=== PATIENT | female | born 1955 | race Caucasian/White ===

== ENCOUNTER → 2020-05-08 | Outpatient (CLI) | payer MEDICARE, OTHER ==
[~2020-05-08] MED LIST: ALUM-MAG HYDROX30 ML PO; AMOX250 PO; ANTIBIOTIC OINT28 GM TOP; APHEN325 M2 PO; ASPI81CH PO; ATOR20 PO; ATORVASTATIN CA20 MG PO; AZIT500 PO; BACL10 PO; BACLOFEN10 M4 PO; BISA10S PR; CEPH500 PO; Cetirizine HCl10 MG PO; DICLOFENAC SOD100 G1 TOP; DOCUZEN 8.6-501 EACH PO; DULCOLAX400 MG/5 M PO; FERSU300 PO; FLUT1DIS2 INH; FLUTICASONE-SA1 EA10 INH; HALOPERIDOL PO; INVEGA SUS234 MG/1.1 IM; LITH300C PO; LITH300ER PO; LITHIUM CARBON PO; LOPE2C PO; Lithium Carbon150 MG PO; MAGNESIUM OXID400 M1 PO; MAGNESIUM OXID500 MG PO; METF500 PO; METFORMIN HCL500 M2 PO; METO25 PO; MIRALAX17 GM PO; MIRT15 PO; MIRT15ST PO; ONDA4ODT SL; PALI3TAB PO; PALIPERIDONE ER3 MG PO; POTCHL20ER PO; PRAZ2 PO; PROP10 PO; Potassium Chlo20 ME1 PO; SULINDAC150 M1 PO; TRIA15CR3 TOP; VITAMIN D31000 UNI1 PO; Ventolin/Prove6.7 GM INH; ZOLP5 PO; ZYRTEC10 M1 PO; eucerin cream TOP
[2020-05-08 13:52] LABS: BASOPHILS ABSOLUTE AUTO 0.04 K/mm3 (0.00-0.23); BASOPHILS PERCENT AUTO 0 % (0-2); EOSINOPHILS PERCENT AUTO 3 % (0-6); Hemoglobin 11.4 g/dL (11.5-16.0); IMMATURE GRAN ABSOLUTE AUTO 0.04 K/mm3 (0.00-0.10); IMMATURE GRAN PERCENT AUTO 0 % (0-1); LYMPHOCYTES ABSOLUTE AUTO 1.52 K/mm3 (0.84-5.20); LYMPHOCYTES PERCENT AUTO 15 % (21-46); MONOCYTES PERCENT AUTO 5 % (4-13); Mean Corpuscular HGB 27.9 pg (26.0-34.0); Mean Corpuscular Volume 93 fL (80-100); Mean Platelet Volume 10.6 fL (9.1-12.4); NEUTROPHILS ABSOLUTE AUTO 7.48 K/mm3 (1.96-9.15); NEUTROPHILS PERCENT AUTO 76 % (41-73); Platelet Count 199 K/mm3 (150-400); RDW Coefficient Variation 15.2 % (11.7-14.2); RDW Standard Deviation 51.8 fL (35.1-46.3); Red Blood Cell Count 4.08 M/mm3 (3.80-5.20); White Blood Cell Count 9.88 K/mm3 (4.00-11.30)
[2020-05-08 14:40] LABS: Lithium 0.46 mmol/L (0.60-1.20)
[2020-05-08 16:03] LABS: Alanine Aminotransfer (ALT/SGP 24 U/L (12-78); Albumin, Blood 3.4 g/dL (3.4-5.0); Albumin/Globulin Ratio 0.9 (0.8-1.8); Alk Phos 109 U/L (50-136); Anion Gap 1 mmol/L (6-16); Aspartate Aminotrans (AST/SGOT 9 U/L (12-37); Bilirubin, Total 0.4 mg/dL (0.1-1.0); Blood Urea Nitrogen 14 mg/dL (8-24); Bun/Creatinine Ratio 25.3 (12.0-20.0); CO2, Blood 37 mmol/L (21-32); Chloride, Blood 101 mmol/L (98-108); Creatinine, Blood 0.55 mg/dL (0.40-1.00); Globulin, Blood 3.6 g/dL (2.2-4.0); Glomerular Filtration Rate >60 (60-); Glucose, Blood 119 mg/dL (70-99); Potassium, Blood 3.9 mmol/L (3.5-5.5); Sodium, Blood 139 mmol/L (136-145)
== END | disposition home or self-care (01) ==
LOC: LAB 08:45 → LAB SHORT 08:45
PROVIDERS: Psychiatry & Neurology Psychiatry
DX: Z51.81 Encounter for therapeutic drug level monitoring (principal); Z79.899 Other long term (current) drug therapy
CPT/HCPCS: 80053; 80178; 84443; 85025

== ENCOUNTER → 2020-05-15 | Outpatient (CLI) | payer MEDICARE, OTHER ==
[2020-05-15 19:53] LABS: Appearance, Urine Clear (Clear); Bilirubin, Urine Neg (Neg); Blood, Urine Neg (Neg); Color, Urine Yellow (P-Yellow); Glucose Qualitative, Urine Neg (Neg); Ketones, Urine Neg (Neg); Leukocyte Esterase, Urine Neg (Neg); Nitrite, Urine Neg (Neg); Protein, Urine Neg (Neg); Specific Gravity, Urine 1.005 (1.003-1.022); Urobilinogen, Urine NORM (Normal)
== END | disposition home or self-care (01) ==
LOC: LAB 19:01 → LAB SHORT 19:01
PROVIDERS: Physician Assistant
DX: E11.65 Type 2 diabetes mellitus with hyperglycemia (principal)
CPT/HCPCS: 81003

== ENCOUNTER → 2020-05-17 | Outpatient (CLI) | payer MEDICARE, OTHER ==
[2020-05-17 20:45] LABS: Microalb/Creat Ratio UR, Rand Unable to Calculate mg/g (0.000-30.000); Microalbumin, Random Urine <5.000 mg/L (0.000-20.000)
== END | disposition home or self-care (01) ==
LOC: LAB SHORT 19:01 → LAB 19:01 → LAB FUT 05-15 08:40
PROVIDERS: Physician Assistant
DX: E11.65 Type 2 diabetes mellitus with hyperglycemia (principal)
CPT/HCPCS: 82043; 82570

== ENCOUNTER → 2020-05-18 | Outpatient (CLI) | payer MEDICARE, OTHER ==
[2020-05-18 13:57] LABS: BASOPHILS ABSOLUTE AUTO 0.05 K/mm3 (0.00-0.23); BASOPHILS PERCENT AUTO 1 % (0-2); EOSINOPHILS ABSOLUTE AUTO 0.26 K/mm3 (0.00-0.68); EOSINOPHILS PERCENT AUTO 3 % (0-6); Hematocrit 37.7 % (33.0-51.0); Hemoglobin 11.3 g/dL (11.5-16.0); IMMATURE GRAN ABSOLUTE AUTO 0.05 K/mm3 (0.00-0.10); IMMATURE GRAN PERCENT AUTO 1 % (0-1); LYMPHOCYTES ABSOLUTE AUTO 1.79 K/mm3 (0.84-5.20); LYMPHOCYTES PERCENT AUTO 17 % (21-46); MONOCYTES ABSOLUTE AUTO 0.45 K/mm3 (0.16-1.47); MONOCYTES PERCENT AUTO 4 % (4-13); Mean Corpuscular HGB 27.7 pg (26.0-34.0); Mean Corpuscular Volume 92 fL (80-100); Mean Platelet Volume 10.5 fL (9.1-12.4); NEUTROPHILS ABSOLUTE AUTO 7.79 K/mm3 (1.96-9.15); NEUTROPHILS PERCENT AUTO 75 % (41-73); Platelet Count 223 K/mm3 (150-400); RDW Coefficient Variation 14.8 % (11.7-14.2); RDW Standard Deviation 50.4 fL (35.1-46.3); Red Blood Cell Count 4.08 M/mm3 (3.80-5.20); White Blood Cell Count 10.39 K/mm3 (4.00-11.30)
[2020-05-18 14:16] LABS: Alanine Aminotransfer (ALT/SGP 27 U/L (12-78); Albumin, Blood 3.4 g/dL (3.4-5.0); Albumin/Globulin Ratio 0.9 (0.8-1.8); Alk Phos 109 U/L (50-136); Anion Gap 0 mmol/L (6-16); Aspartate Aminotrans (AST/SGOT 14 U/L (12-37); Bilirubin, Total 0.3 mg/dL (0.1-1.0); Blood Urea Nitrogen 10 mg/dL (8-24); Bun/Creatinine Ratio 18.9 (12.0-20.0); CHOL/HDL RATIO 4.3; CO2, Blood 37 mmol/L (21-32); Calcium, Blood 9.1 mg/dL (8.5-10.1); Chloride, Blood 102 mmol/L (98-108); Cholesterol 166 mg/dL (50-200); Creatinine, Blood 0.53 mg/dL (0.40-1.00); Ferritin, Serum 128 ng/mL (8-252); Globulin, Blood 3.6 g/dL (2.2-4.0); Glomerular Filtration Rate >60 (60-); Glucose, Blood 98 mg/dL (70-99); HDL Cholesterol 39 mg/dL (>39); Iron Serum 58 ug/dL (50-170); LDL/HDL RATIO 2.7; Low Density Lipoprotein Chol 107 mg/dL (0-110); Percent Saturation 19.1 % (15.0-50.0); Potassium, Blood 4.5 mmol/L (3.5-5.5); Sodium, Blood 139 mmol/L (136-145); Total Iron Binding Capacity 303 ug/dL (250-450); Triglycerides 100 mg/dL (30-160); Very Low Density Lipoprot Chol 20 mg/dL (6-32)
== END | disposition home or self-care (01) ==
LOC: LAB 12:53 → LAB SHORT 12:53
PROVIDERS: Physician Assistant
DX: D50.9 Iron deficiency anemia, unspecified (principal); I10 Essential (primary) hypertension; E11.65 Type 2 diabetes mellitus with hyperglycemia; E78.5 Hyperlipidemia, unspecified
CPT/HCPCS: 80053; 80061; 82728; 83036; 83540; 83550; 85025

== ENCOUNTER → 2020-05-29 | Outpatient (CLI) | payer MEDICARE, OTHER ==
[2020-05-30 19:30] LABS: Source, Urine Clean Catch
[2020-05-30 20:00] LABS: Appearance, Urine Clear (Clear); Bilirubin, Urine Neg (Neg); Blood, Urine Neg (Neg); Color, Urine Yellow (P-Yellow); Glucose Qualitative, Urine Neg (Neg); Ketones, Urine Neg (Neg); Leukocyte Esterase, Urine Neg (Neg); Nitrite, Urine Neg (Neg); Protein, Urine Neg (Neg); Urobilinogen, Urine NORM (Normal)
== END | disposition home or self-care (01) ==
LOC: LAB SHORT 13:00 → PLD 13:00
PROVIDERS: Physician Assistant
DX: N39.0 Urinary tract infection, site not specified (principal)
CPT/HCPCS: 81003

== ENCOUNTER 2020-06-21 12:44 | Inpatient (IN) | payer MEDICARE, OTHER ==
[~2020-06-21] VITALS: Ht 152.4 cm; Wt 120.0 kg
[2020-06-21 13:33] LABS: BASOPHILS ABSOLUTE AUTO 0.05 K/mm3 (0.00-0.23); BASOPHILS PERCENT AUTO 0 % (0-2); EOSINOPHILS PERCENT AUTO 0 % (0-6); Hematocrit 42.5 % (33.0-51.0); Hemoglobin 12.7 g/dL (11.5-16.0); IMMATURE GRAN ABSOLUTE AUTO 0.16 K/mm3 (0.00-0.10); IMMATURE GRAN PERCENT AUTO 1 % (0-1); LYMPHOCYTES ABSOLUTE AUTO 1.39 K/mm3 (0.84-5.20); LYMPHOCYTES PERCENT AUTO 9 % (21-46); MONOCYTES ABSOLUTE AUTO 0.71 K/mm3 (0.16-1.47); MONOCYTES PERCENT AUTO 5 % (4-13); Mean Corpuscular HGB 29.3 pg (26.0-34.0); Mean Corpuscular HGB Conc 29.9 g/dL (31.5-36.5); Mean Corpuscular Volume 98 fL (80-100); Mean Platelet Volume 10.3 fL (9.1-12.4); NEUTROPHILS ABSOLUTE AUTO 13.36 K/mm3 (1.96-9.15); NEUTROPHILS PERCENT AUTO 85 % (41-73); Platelet Count 193 K/mm3 (150-400); RDW Coefficient Variation 14.6 % (11.7-14.2); RDW Standard Deviation 52.2 fL (35.1-46.3); Red Blood Cell Count 4.34 M/mm3 (3.80-5.20); White Blood Cell Count 15.67 K/mm3 (4.00-11.30)
[2020-06-21 13:53] LABS: Albumin, Blood 3.5 g/dL (3.4-5.0); Albumin/Globulin Ratio 0.9 (0.8-1.8); Bilirubin, Total 0.4 mg/dL (0.1-1.0); Bun/Creatinine Ratio 16.2 (12.0-20.0); Calcium, Blood 8.7 mg/dL (8.5-10.1); Creatinine, Blood 1.6 mg/dL (0.40-1.00); Globulin, Blood 3.7 g/dL (2.2-4.0); Potassium, Blood 5.3 mmol/L (3.5-5.5); Total Protein, Blood 7.2 g/dL (6.4-8.2)
[2020-06-21 14:01] LABS: Troponin I 3.42 ng/mL (0.000-0.040)
[2020-06-21] MEDS ORDERED: ATORVASTATIN CA20 MG PO (14:42)
[2020-06-21] MEDS ORDERED: HALOPERIDOL PO (14:44)
[2020-06-21] MEDS ORDERED: DICLOFENAC SOD100 G1 TOP (14:45)
[2020-06-21] MEDS ORDERED: PALIPERIDONE ER3 MG PO (14:46)
[2020-06-21] MEDS ORDERED: MIRT15 PO (14:46)
[2020-06-21] MEDS ORDERED: BACLOFEN10 M4 PO (14:47)
[2020-06-21] MEDS ORDERED: Cetirizine HCl10 MG PO (14:47)
[2020-06-21] MEDS ORDERED: Lithium Carbon150 MG PO (14:48)
[2020-06-21] MEDS ORDERED: LITHIUM CARBON PO (14:48)
[2020-06-21] MEDS ORDERED: PRAZ2 PO (14:49)
[2020-06-21] MEDS ORDERED: METFORMIN HCL500 M2 PO (14:49)
[2020-06-21] MEDS ORDERED: PROP10 PO (14:50)
[2020-06-21] MEDS ORDERED: Potassium Chlo20 ME1 PO (14:50)
[2020-06-21] MEDS ORDERED: SULINDAC150 M1 PO (14:51)
[2020-06-21] MEDS ORDERED: ZOLP5 PO (14:52)
[2020-06-21] MEDS ORDERED: APHEN325 M2 PO (14:53)
[2020-06-21] MEDS ORDERED: FLUTICASONE-SA1 EA10 INH (14:54)
[2020-06-21] MEDS ORDERED: INVEGA SUS234 MG/1.1 IM (14:55)
[2020-06-21] MEDS ORDERED: Ventolin/Prove6.7 GM INH (14:56)
[2020-06-21] MEDS ORDERED: VITAMIN D31000 UNI1 PO (14:58)
[2020-06-21] MEDS ORDERED: FERSU300 PO (14:59)
[2020-06-21] MEDS ORDERED: MIRALAX17 GM PO (15:00)
[2020-06-21] MEDS ORDERED: MAGNESIUM OXID500 MG PO (15:02)
[2020-06-21] MEDS ORDERED: DOCUZEN 8.6-501 EACH PO (15:02)
[2020-06-21] MEDS ORDERED: TRIA15CR3 TOP (15:03)
[2020-06-21] MEDS ORDERED: LOPE2C PO (15:04)
[2020-06-21] MEDS ORDERED: ALUM-MAG HYDROX30 ML PO (15:04)
[2020-06-21] MEDS ORDERED: BISA10S PR (15:05)
[2020-06-21] MEDS ORDERED: eucerin cream TOP (15:06)
[2020-06-21] MEDS ORDERED: DULCOLAX400 MG/5 M PO (15:07)
[2020-06-21] MEDS ORDERED: ONDA4ODT SL (15:08)
[2020-06-21] MEDS ORDERED: ANTIBIOTIC OINT28 GM TOP (15:09)
[2020-06-21 15:19] LABS: Lithium 1.64 mmol/L (0.60-1.20)
[2020-06-21 16:45] LABS: International Normalized Ratio 1.02; Prothrombin Time Results 10.9 Sec (9.7-11.5)
--- NOTE | 2020-06-21 19:30 | NUR ---
Pt arrived to PCU approx 1844. IV right antecubital space accidentally pulled in the transfer from [facility] to bed. Pt is lethargic, speech is mumbling and difficult to understand, and at times does not make sense. She does state that she came to the hospital because of "a heart attack" which she states was brought on by her smoking a cigarette today. States pain in her back, but when asked which part of her back she points to her right shoulder. Requiring 4 l/min O2 n.c. delivery to keep spo2 greater than 89%. Appears to have some sleep apnea. Incontinent of urine just after arrival, awakened for pericare and attends change. Able to assist somewhat with the turning back and forth in bed, but appears dyspneic with activity. Also having a hard time remembering to keep her oxygen on. Heparin gtt verified with orders with Geovanna Marquez at bedside report.
[2020-06-21 20:29] LABS: PO2 Arterial 80.7 mmHg (80-100); pH Blood Arterial 7.23 (7.35-7.45)
--- NOTE | 2020-06-21 20:59 | NUR ---
CALLED JOY ARCHITECTURAL MODELER REGARDING PT CRITICAL LABS: PH 7.32 AND PCO2 97.0. ARCHITECTURAL MODELER ORDERED FOR BIPAP.
[2020-06-21 21:12] LABS: Influenza A, PCR NEGATIVE (NEGATIVE); Influenza B, PCR NEGATIVE (NEGATIVE); Resp Syncytial Virus, PCR NEGATIVE (NEGATIVE); SARS-Cov-2 (COVID-19) PCR, MMC NEGATIVE (NEGATIVE)
[2020-06-21 21:44] LABS: Creatine Kinase MB 23.7 ng/mL (0.0-3.6); Creatine Kinase MB Index 1.7 (0.0-4.0)
--- NOTE | 2020-06-21 22:21 | NUR ---
CRITICAL VALUE OF TRIPONIN 6.46 FROM LAB. INFORMED CHARGE NURSE. HEPARIN RUNNING, CARDIOLOGY CONSULT ORDER IN PLACE. CALLED IN CONSULT AND TALKED TO JAMISON FOR AM CONSULT WITH MD CHRISTIANSON
[2020-06-22 05:27] LABS: Hematocrit 36.7 % (33.0-51.0); Hemoglobin 11.1 g/dL (11.5-16.0); Mean Corpuscular HGB 29.8 pg (26.0-34.0); Mean Corpuscular HGB Conc 30.2 g/dL (31.5-36.5); Mean Corpuscular Volume 98 fL (80-100); Mean Platelet Volume 10.5 fL (9.1-12.4); Platelet Count 168 K/mm3 (150-400); RDW Coefficient Variation 14.7 % (11.7-14.2); RDW Standard Deviation 52.9 fL (35.1-46.3); Red Blood Cell Count 3.73 M/mm3 (3.80-5.20)
--- NOTE | 2020-06-22 05:59 | NUR ---
SHIFT SUMMARY PT CONFUSED. AT BEGINING OF SHIFT PT WAS CONFUSED; SHE WAS RECEPTIVE TO CARE AND ABLE TO FOLLOW SOME COMMANDS. AFTER PT WAS PUT ON BIPAP SHE BECAME AGITATED WAS, YELLING, TALKING TO SELF AND THREATING TO WHOM SHE WAS TALKING TO (NOT STAFF). PT'S PH WAS 7.23 AND PCO2 WAS 97.0, JOY CARDING DOUBLER WAS CALLED. TROPONIN WAS ELEVATED TO 6.46 AND CONSULT TO CARDIOLOGY WAS CALLED IN. HEPARIN IS INFUSING; ON BIPAP OF 35% FIO2 WITH >92% SATS. NORMAL SINUS RHYTHM. PT IS NPO.
[2020-06-22 06:06] LABS: Anion Gap 2 mmol/L (6-16); Blood Urea Nitrogen 28 mg/dL (8-24); Bun/Creatinine Ratio 27.2 (12.0-20.0); CHOL/HDL RATIO 2.7; CO2, Blood 41 mmol/L (21-32); CPK Creatine Kinase 889 U/L (26-193); Calcium, Blood 8.6 mg/dL (8.5-10.1); Chloride, Blood 99 mmol/L (98-108); Cholesterol 102 mg/dL (50-200); Creatine Kinase MB 14.9 ng/mL (0.0-3.6); Creatine Kinase MB Index 1.7 (0.0-4.0); Creatinine, Blood 1.03 mg/dL (0.40-1.00); Glomerular Filtration Rate 57 (60-); Glucose, Blood 95 mg/dL (70-99); HDL Cholesterol 38 mg/dL (>39); LDL/HDL RATIO 1.1; Low Density Lipoprotein Chol 40 mg/dL (0-110); Phosphorus, Blood 3.7 mg/dL (2.5-4.9); Potassium, Blood 4.3 mmol/L (3.5-5.5); Sodium, Blood 142 mmol/L (136-145); Triglycerides 119 mg/dL (30-160); Very Low Density Lipoprot Chol 23 mg/dL (6-32)
--- NOTE | 2020-06-22 06:36 | NUR ---
CRITICAL TROPONIN OF 5.620. DISCUSSED WITH ANGIE WEBB RN.
[2020-06-22 06:40] LABS: Lithium 0.44 mmol/L (0.60-1.20)
--- NOTE | 2020-06-22 07:18 | NUR ---
Pt is awake, responding to conversation but also talking to the TV. Occasionally shouting out that she needs to eat, needs a cigarette, and also shouting out "they are trying to rape me! Help!" when staff are taking her vital signs, doing an assessment, etc. Arguing with staff about whether or not she can smoke. She is now repeating,"thank you Zen" over and over again because she said it will make staff automatially give her a cigarette. Vital signs stable, pt has no c/o pain or difficulty breathing but requring 7 l/min of oxygen to keep spo2 greater than 90%. Sinus rhythm on the monitor.
--- NOTE | 2020-06-22 09:02 | NUR ---
Pt pulled out her IV, tele monitor, and her oxygen. Yelling out, irrational behaviour, and irritable and obscene language. Refusing to take her oral medications at first, then relented, but at each administration she would pour the water/ice either on the floor or over her own head. Pulled off the gauze and coban which was covering her dc'd iv site and bled all over the bed. Site was again dressed with gauze and ample coban to prevent a second removal. Repetitive and nonscensical verbalizations when left alone in the room. Appeared to be having conversations at the images on the TV also.
--- NOTE | 2020-06-22 09:09 | NUR ---
Call to Dr. Noland to notify her of pt's refusal to cooperate with care. Anticipating order for Zyprexa IM.
--- NOTE | 2020-06-22 09:27 | NUR ---
Pt refusing to have vital signs taken, including spo2. Refusing to wear her oxygen. Zyprexa administered as ordered. Pt is yelling out nonsensicially. Attempting to hit and grab staff when they are in proximity to her.
--- NOTE | 2020-06-22 09:57 | NUR ---
Pt allowed respiratory care to check spo2. 78% on room air. Pt allowed application of oxygen at 7 l/min via n.c.; spo2 improved only slightly to 81%. Pt is babbling nonsensically, still attempting to grab at staff and interfere with care.
--- NOTE | 2020-06-22 10:09 | NUR ---
Pt's spo2 not improving , remaining 77-81% on 11 l/min n.c. hi flow. Respiratory care here, states pt needs bipap, but with restraits she will need transfer to ICU. Called Dr. Noland to discuss situation. Pt will be transferring to ICU 11 shortly.
--- NOTE | 2020-06-22 11:16 | NUR ---
pt transferred to ICU 11; bedside report given to Cynthia Seo RN.
[2020-06-22 11:54] LABS: PCO2 Arterial 69.6 mmHg (35-45); PO2 Arterial 180 mmHg (80-100)
--- NOTE | 2020-06-22 14:15 | NUR ---
Assumed care of pt upon arrival to ICU 11 at 1053 from PCU. Bedside report received from Daily JOHNSON. Transferred from PCU bed to ICU bed using slider sheet and five staff. On arrival, pt agitated, yelling profanities. Flailing extremities in nonviolent manner. Restraints placed as pt has pulled vital lines. Pt arrived with no IV access in place as this was pulled in PCU. Therefore heparin not infusing. SR per monitor. BP stable. Lungs clear but diminished t/o. Pt on 10 LPM NC. SpO2 low 80s, but this was corrected when pt put nasal cannula in her mouth. Pt on BiPAP for approx 45 minutes. Taken off for trip to imaging. On arrival back to department, pt remained on NC and O2 has since been titrated down to 2 LPM. SpO2 94%. Pt incontinent of bladder. Morrison catheter placed for strict measurement of I&O. Pt's left arm had coban and gauze to AC. Difuse edema and ecchymosis to left arm. Blisters also present. Measured 40 cm cicumference to forarm, distal to AC. Photographs obtained. Arm tender when palpated or pt moves it. Per PCU nurses, pt had heparin infusing through IV in AC when it was pulled. Discussed with pharmacist, Timothy. Discussed with Dr Noland, plan to obtain CT of extremity. At this time, pt is pleasant and cooperative with care. Refused lunch tray, as she wants pizza and not her lunch tray. Pt agreeable to drinking an ensure.
[2020-06-22 14:24] LABS: Source, Urine Catheter
[2020-06-22 14:27] LABS: Appearance, Urine Clear (Clear); Bilirubin, Urine Neg (Neg); Blood, Urine Neg (Neg); Color, Urine Yellow (P-Yellow); Glucose Qualitative, Urine Neg (Neg); Ketones, Urine Neg (Neg); Leukocyte Esterase, Urine Neg (Neg); Nitrite, Urine Neg (Neg); Protein, Urine Neg (Neg); Urobilinogen, Urine NORM (Normal)
[2020-06-22 16:05] LABS: BASOPHILS ABSOLUTE AUTO 0.04 K/mm3 (0.00-0.23); BASOPHILS PERCENT AUTO 0 % (0-2); EOSINOPHILS ABSOLUTE AUTO 0.15 K/mm3 (0.00-0.68); EOSINOPHILS PERCENT AUTO 1 % (0-6); Hematocrit 36.2 % (33.0-51.0); IMMATURE GRAN ABSOLUTE AUTO 0.12 K/mm3 (0.00-0.10); IMMATURE GRAN PERCENT AUTO 1 % (0-1); LYMPHOCYTES PERCENT AUTO 17 % (21-46); MONOCYTES ABSOLUTE AUTO 0.69 K/mm3 (0.16-1.47); MONOCYTES PERCENT AUTO 6 % (4-13); Mean Corpuscular HGB 29.8 pg (26.0-34.0); Mean Corpuscular HGB Conc 30.4 g/dL (31.5-36.5); Mean Corpuscular Volume 98 fL (80-100); Mean Platelet Volume 10.9 fL (9.1-12.4); NEUTROPHILS ABSOLUTE AUTO 8.62 K/mm3 (1.96-9.15); NEUTROPHILS PERCENT AUTO 75 % (41-73); NRBC ABSOLUTE 0.02 K/mm3 (0.00-0.02); NRBC Auto 0.2 /100 WBC (0.0-0.2); Platelet Count 165 K/mm3 (150-400); RDW Coefficient Variation 14.8 % (11.7-14.2); RDW Standard Deviation 53.3 fL (35.1-46.3); Red Blood Cell Count 3.69 M/mm3 (3.80-5.20); White Blood Cell Count 11.52 K/mm3 (4.00-11.30)
--- NOTE | 2020-06-22 17:01 | NUR ---
Placed call to Dr Noland to notify of lab results. Discussed appearance of RUBENE and requested provider take a look at it. Provider states she will come by and look at it. Ecchymotic area marked. Forearm circumference measured, now 38 cm instead of 40 cm. This RN gave update to sister, Cara Collins ([phone]). Also updated Shoshana ([phone]) from [facility], who stated that Cara is the patient's guardian, if any consent needs to be obtained.
--- NOTE | 2020-06-22 17:34 | NUR ---
SUMMARY At this time, pt is A&O x 2. Answers questions. Follows commands. Vebalizes needs. Pleasant and cooperative with care. Pt still pulls at cords and lines even through restraints. Powerglide remains safely in place at this time. Pt on 2 LPM NC. SpO2 96%. Per RN at [facility], pt usually wears 3 LPM NC. Morrison catheter in place draining clear, yellow urine. SR per monitor. BP stable. Color, sensation, pulses, capillary refill equal BUE. LUE elevated to help with edema, Will continue to closely monitor until care handoff and bedside report with oncoming RN.
--- NOTE | 2020-06-22 22:00 | NUR ---
Care Assumed 1900 Pt is oriented to being in [place] but unable to state being at hospital or correct date. Has flight of idea, attempting to get out of bed to "smoke." Updated on location and why restraints are in place. Pt pulling at lines and easily becomes confused/agitated. VSS. NSR. On 5 L via NC, SPO2 > 90%. Temp olson in place, draining to gravity (99.7 temp). Pts left arm has diffuse edema, ecchymosis, and blisters present. Pt states pain with movement but when at rest denies pain. Powerglide to ADRIANA infusing heparin, see flow sheet. Pt asking for "chocolate milk" ensure provided.
--- NOTE | 2020-06-22 23:45 | NUR ---
Update Pt sleeping and easily awakens to verbal stimuli. On 5 L via NC, SPO2 > 90%. Left arm has edema, ecchymosis, and blisters continue to be present. Measured 40 cm circumference to forearm, distal to AC. Pt states pain is the same. Will continue to monitor.
--- NOTE | 2020-06-23 04:00 | NUR ---
Update - SWB removed @ 0000 SWB removed at 0000. Pt has been calm and cooperative. Able to sit up in bed and eat sandwich/pudding per pt request. No changes in patients left arm, see photo in chart. Pt sleeping after having snack. Will continue to monitor.
--- NOTE | 2020-06-23 05:39 | NUR ---
Shift Summary Pt resting t/o shift. Calm and cooperative. Awakens easily to verbal stimuli. Asked pt if she is aware of her location, states no and says she maybe in [place] and repeats "I do not want to go to the appointment." Pt oriented and falls asleep. Call light within reach. Pt remains on 5 L via NC, SPO2 > 90%. No changes in left arm, edema/ecchymosis and blisters continue to be present. Pt rates pain of 6/10, no worsening pain reported t/o shift. Heparin GTT 18 u/kg/hr, see flow sheet. VSS. NSR. Will report to oncoming shift.
--- NOTE | 2020-06-23 17:14 | NUR ---
SHIFT SUAMRY PT A&Ox2; CALM BUT RESISTANT TO CARE AT TIMES. PT QUESTIONS MEDICATION SEVERAL TIMES BEFORE TAKING SOME OF THE PRESCRIBED MEDICATIONS. PT REPORT BACK PAIN, REPOSITIONED FOR COMOFRT AND PRESSURE ULCER PREVENTION. PT PT DENIES SOB, THIS AM ON 5L O2 VIA NC, TITRATED TO 2L O2 VIA NC, SPO2 >90%, PT FREQUENTLY TAKES OFF NC TO WIPE NOSE DESATRUATION TO MID 80'S BUT RECOVERS QUICKLY. PT DENIES NAUSEA, DIZZINESS AND LIGHTHEADEDNESS. VSS. PT OPENING CUPS OF WATER AND SPILLING THEM OVER HER HEAD, THEN REQUEST A DRINK OF WATER. PT REFUSING TO ASSIST WITH REPOSITIONING IN BED, STATES THAT SHE IS TO WEAK. SWELLING TO LUE FROM INFILTRATION TO AC IV; BRUISING IS RECEEDING FROM MARKED LINES AND MEASUMENT THIS AM AT 38cm TO THIS EVENING OF 36.5cm. NO OTHER ACUTE CHANGES NOTED. WILL CONTINUE TO MONITOR UNITL REPORT GIVEN TO ONCOMING RN.
--- NOTE | 2020-06-24 03:16 | NUR ---
ASSUMED CARE AT 1900 PT LAYING IN BED AND IS ALERT/ORIENTED TO SELF/TOWN BUT NOT TIME OR PLACE; PT BECOMES DISTRACTED EASILY AND IT IS CHALLENGING TO FOLLOW THOUGHT PROCESS AT TIMES; PT IS CALM AND COOPERATIVE WITH CARE. SPO2 >90% ON 2L NC. AFIBRILE. HR 60'S. BP STABLE. DORMAN PATENT AND DRAINING TO GRAVITY. INFILTRATION TO LUE SHOWS REDNESS INSIDE THE DRAWN OUTLINE. HEPARIN INFUSING AT 20 UNITS/KG/HR VIA POWERGLIDE TO ADRIANA. SEE SHIFT ASSESSMENT FOR FULL ASSESSMENT.
[2020-06-24 03:34] LABS: BASOPHILS ABSOLUTE AUTO 0.04 K/mm3 (0.00-0.23); BASOPHILS PERCENT AUTO 0 % (0-2); EOSINOPHILS ABSOLUTE AUTO 0.22 K/mm3 (0.00-0.68); EOSINOPHILS PERCENT AUTO 2 % (0-6); Hematocrit 34.5 % (33.0-51.0); Hemoglobin 10.4 g/dL (11.5-16.0); IMMATURE GRAN ABSOLUTE AUTO 0.07 K/mm3 (0.00-0.10); IMMATURE GRAN PERCENT AUTO 1 % (0-1); LYMPHOCYTES ABSOLUTE AUTO 2.22 K/mm3 (0.84-5.20); LYMPHOCYTES PERCENT AUTO 20 % (21-46); MONOCYTES PERCENT AUTO 6 % (4-13); Mean Corpuscular HGB 29.5 pg (26.0-34.0); Mean Corpuscular HGB Conc 30.1 g/dL (31.5-36.5); Mean Corpuscular Volume 98 fL (80-100); Mean Platelet Volume 10.7 fL (9.1-12.4); NEUTROPHILS ABSOLUTE AUTO 7.63 K/mm3 (1.96-9.15); NEUTROPHILS PERCENT AUTO 70 % (41-73); Platelet Count 174 K/mm3 (150-400); RDW Coefficient Variation 14.8 % (11.7-14.2); RDW Standard Deviation 51.7 fL (35.1-46.3); Red Blood Cell Count 3.53 M/mm3 (3.80-5.20); White Blood Cell Count 10.88 K/mm3 (4.00-11.30)
[2020-06-24 03:52] LABS: Albumin, Blood 2.9 g/dL (3.4-5.0); Anion Gap 2 mmol/L (6-16); Blood Urea Nitrogen 17 mg/dL (8-24); CO2, Blood 43 mmol/L (21-32); Calcium, Blood 8.7 mg/dL (8.5-10.1); Chloride, Blood 98 mmol/L (98-108); Creatinine, Blood 0.65 mg/dL (0.40-1.00); Glomerular Filtration Rate >60 (60-); Glucose, Blood 111 mg/dL (70-99); Magnesium, Blood 2.1 mg/dL (1.6-2.4); Sodium, Blood 143 mmol/L (136-145)
--- NOTE | 2020-06-24 06:28 | NUR ---
END OF SHIFT SUMMARY PT SLEPT FOR SEVERAL HOURS LAST NIGHT. PT IS ALERT AND ORIENTED TO SELF AND TOWN BUT NOT PLACE OR TIME, PT OCCATIONALLY FORGETFUL TOO. PRN TYLENOL GIVEN ONCE FOR PAIN AND HELPFUL. WHILE SLEEPING, PT REQUESTED CPAP WITH 10L BLEED IN, WHEN AWAKE SPO2 >90% ON 3L NC. HEPARIN INFUSING AT 23 UNITS/KG/HR VIA POWERGLIDE TO ADRIANA. AFIBRILE. HR 50-80'S. SBP 100-110. DORMAN PATENT AND DRAINING TO GRAVITY. COCO INFILTRATION AND BRUISING SHOWS NO CHANGES. WILL REPORT TO AM RN WHEN AVAILABLE.
--- NOTE | 2020-06-24 16:32 | NUR ---
REPORT TAKEN BEFORE PT ARRIVAL FROM ALEX DÍAZ. PT ARRIVED TO UNIT @ APPROX 1620 VIA WHEELCHAIR. PT WAS ABLE TO STAND AND AMBULATE TO HER BED WITH MINIMAL ASSISTANCE. DORMAN IS PATENT AND DRAINING CLEAR YELLOW URINE. LUNG SOUNDS DIMINISHED T/O, ON 2 L/MIN O2 VIA NC. PT STATES HER BASELINE AT HOME IS 2-4 L/MIN. PT IS A&O, ANSWERES ALL QUESTIONS APPROPRIATELY. LARGE BRUISING OF UNKNOWN CAUSE ON PT LEFT ARM, WELL BLISTERS. BRUISING IS RECEDING. PT STATES SHE IS IN NO CURRENT DISTRESS. SHE IS LYING IN BED CURRENTLY WATCHING TV. PT INFORMED OF CALL SYSTEM. ICE WATER AND DECAF COFFEE WAS PROVIDED TO PT PER HER REQUEST.
--- NOTE | 2020-06-24 16:46 | NUR ---
REPORT CALLED TO LOUIS JOHNSON, PT TRANSFERING TO ROOM 354. ALL BELONGING AND CPAP BROUGHT WITH THE PT. PT TRANSFERRED VIA WHEELCHAIR TO ROOM 354, LEFT WITH LOUIS JOHNSON IN ROOM. MADHURI BRUISING AND BLITERS SHOWN TO RN.
--- NOTE | 2020-06-24 17:57 | NUR ---
SHIFT SUMMARY NO ACUTE CHANGES SINCE PT'S ARRIVAL TO UNIT. PT IS A&O, ANSWERS QUESTIONS APPROPRAITELY AND MAKES NEEDS KNOWN. CALM AND COOPERATIVE. PT DENIES ANY DISTRESS OR DISCOMFORT AT THIS TIME. DORMAN IS PATENT AND DRAINING CLEAR YELLOW URINE. CURRENTLY ON 2 L/MIN O2 VIA NC AND SATING ABOVE 90%. PT IS CURRENTLY SITTING UP IN BED EATING DINNER AND WATCHING TV. CALL LIGHT IS WITHIN REACH. PT APPEARS TO BE IN NO DISTRESS OR DISCOMFORT AT THIS TIME.
[2020-06-25 05:01] LABS: BASOPHILS ABSOLUTE AUTO 0.04 K/mm3 (0.00-0.23); BASOPHILS PERCENT AUTO 0 % (0-2); EOSINOPHILS ABSOLUTE AUTO 0.28 K/mm3 (0.00-0.68); EOSINOPHILS PERCENT AUTO 3 % (0-6); Hematocrit 36.3 % (33.0-51.0); Hemoglobin 11.1 g/dL (11.5-16.0); IMMATURE GRAN ABSOLUTE AUTO 0.05 K/mm3 (0.00-0.10); IMMATURE GRAN PERCENT AUTO 1 % (0-1); LYMPHOCYTES ABSOLUTE AUTO 2.38 K/mm3 (0.84-5.20); LYMPHOCYTES PERCENT AUTO 24 % (21-46); MONOCYTES ABSOLUTE AUTO 0.71 K/mm3 (0.16-1.47); MONOCYTES PERCENT AUTO 7 % (4-13); Mean Corpuscular HGB 29.1 pg (26.0-34.0); Mean Corpuscular HGB Conc 30.6 g/dL (31.5-36.5); Mean Corpuscular Volume 95 fL (80-100); Mean Platelet Volume 10.7 fL (9.1-12.4); NEUTROPHILS ABSOLUTE AUTO 6.63 K/mm3 (1.96-9.15); NEUTROPHILS PERCENT AUTO 66 % (41-73); Platelet Count 191 K/mm3 (150-400); RDW Coefficient Variation 14.8 % (11.7-14.2); RDW Standard Deviation 50.9 fL (35.1-46.3); Red Blood Cell Count 3.81 M/mm3 (3.80-5.20); White Blood Cell Count 10.09 K/mm3 (4.00-11.30)
[2020-06-25 05:33] LABS: Albumin, Blood 3.1 g/dL (3.4-5.0); Anion Gap 0 mmol/L (6-16); Blood Urea Nitrogen 16 mg/dL (8-24); Bun/Creatinine Ratio 28.2 (12.0-20.0); CO2, Blood 43 mmol/L (21-32); Chloride, Blood 95 mmol/L (98-108); Creatinine, Blood 0.57 mg/dL (0.40-1.00); Glomerular Filtration Rate >60 (60-); Glucose, Blood 114 mg/dL (70-99); Magnesium, Blood 2.9 mg/dL (1.6-2.4); Phosphorus, Blood 4.1 mg/dL (2.5-4.9); Potassium, Blood 4.3 mmol/L (3.5-5.5); Sodium, Blood 138 mmol/L (136-145)
--- NOTE | 2020-06-25 06:24 | NUR ---
SHIFT SUMMARY A/O, ABLE TO MAKE NEEDS KNOWN. COOPERATIVE WITH CARE. MULTIPLE REQUESTS FROM STAFF. THIS AM HAS STARTED TO BECOME RUDE AT TIMES AND DEMANDING. NO C/O PAIN/DISCOMFORT. APPEARED TO REST MUCH OF THE NIGHT WITH CPAP IN PLACE. DORMAN SECURED AND DRAINING TO GRAVITY. MULTIPLE TRIPS TO COMMODE OVERNIGHT. AFTER RECEVING MULTIPLE BOWEL CARE MEDS; FINALLY ABLE TO HAVE A BM. PG FLUSHES AND DRAWS. NO OTHER ACUTE CHANGES NOTED. BED REMAINED IN LOWEST POSITION. CALL LIGHT AND BELONGINGS WITHIN REACH. CONTINUE WITH CURRENT PLAN OF CARE. REPORT TO ONCOMING RN.
[2020-06-25] MEDS ORDERED: AZIT500 PO (15:47)
[2020-06-25] MEDS ORDERED: ASPI81CH PO (15:47)
[2020-06-25] MEDS ORDERED: METO25 PO (15:48)
[2020-06-25] MEDS ORDERED: CEPH500 PO (15:49)
--- NOTE | 2020-06-25 16:21 | NUR ---
PT DISCHARGED AT APPROX 1620 VIA WHEELCHAIR THAT WAS DROPPED OFF BY [facility] FOR THE PT TO KEEP. PT IS BEING DISCHARGED TO [facility] WITH HOMEHEALTH WHICH IS WHERE SHE WAS RESIDING BEFORE ADMISSION. PT WAS TRANSPORTED BY [facility]. PG AND DORMAN WERE REMOVED PRIOR TO DISCHARGE, BOTH WNL. DISCHARGE MED REC WAS FAXED TO [facility]. PT WAS REEVALUATED BY [facility] NURSE, MICHELLE, PRIOR TO DISCHARGE TO ENSURE GOING BACK WAS THE APPROPRIATE CALL. PT STATED SHE HAD ALL OF HER BELONGINGS AND HAD NO FURTHER QUESTIONS AT THIS TIME.
== END 2020-06-25 16:11 | disposition home health service (06) | DRG 177 ==
LOC: ER 12:44 → PCU 17:34 → ICUW 17:34 → PCU 17:57 → ICUW 06-22 10:56 → MEDS 06-24 16:15
PROVIDERS: Emergency Medicine; Internal Medicine; Pharmacist; Student in an Organized Health Care Education/Training Program; ADMIT Internal Medicine
PROC: 5A09457 Assistance with Respiratory Ventilation, 24-96 Consecutive Hours, Continuous Positive Airway Pressure (ICD-10-PCS; principal; 2020-06-21)
DX: J69.0 Pneumonitis due to inhalation of food and vomit (principal); I50.33 Acute on chronic diastolic (congestive) heart failure; I21.4 Non-ST elevation (NSTEMI) myocardial infarction; J96.01 Acute respiratory failure with hypoxia; G92 Toxic encephalopathy; N17.9 Acute kidney failure, unspecified; I27.20 Pulmonary hypertension, unspecified; I35.0 Nonrheumatic aortic (valve) stenosis; E11.9 Type 2 diabetes mellitus without complications; F25.9 Schizoaffective disorder, unspecified; Z20.822 Contact with and (suspected) exposure to COVID-19; E78.5 Hyperlipidemia, unspecified; E66.01 Morbid (severe) obesity due to excess calories; F31.9 Bipolar disorder, unspecified; F43.10 Post-traumatic stress disorder, unspecified; M19.90 Unspecified osteoarthritis, unspecified site; Z90.49 Acquired absence of other specified parts of digestive tract; Z88.2 Allergy status to sulfonamides; Z91.040 Latex allergy status; Z88.8 Allergy status to other drugs, medicaments and biological substances; Z79.899 Other long term (current) drug therapy
CPT/HCPCS: 0241U; 36415; 36600; 51702; 71045; 73200; 76705; 80053; 80061; 80069; 80178; 81003; 82550; 82553; 82803; 82947; 83036; 83735; 83880; 84145; 84484; 85025; 85027; 85610; 85651; 85730; 86140; 93005; 93010; 93306; 94640; 94660; 94760; 94762; 96365; 96367; 96368; 96376; 97116; 97162; 97165; 97530; 97535; 99285-25; A9270; A9270-GY; C1751; J0456; J0696; J1644; J1940; J7030; J7050

== ENCOUNTER → 2020-07-02 | Outpatient (CLI) | payer MEDICARE, OTHER ==
[2020-07-02 19:28] LABS: Source, Urine Clean Catch
[2020-07-02 20:11] LABS: Appearance, Urine Clear (Clear); Bilirubin, Urine Neg (Neg); Blood, Urine Neg (Neg); Color, Urine Yellow (P-Yellow); Glucose Qualitative, Urine Neg (Neg); Ketones, Urine Neg (Neg); Leukocyte Esterase, Urine Neg (Neg); Nitrite, Urine Neg (Neg); Protein, Urine Neg (Neg); Urobilinogen, Urine NORM (Normal); pH, Urine 6.5 (5.0-8.0)
== END | disposition home or self-care (01) ==
LOC: LAB 19:26 → LAB SHORT 19:26
PROVIDERS: Physician Assistant
DX: N39.0 Urinary tract infection, site not specified (principal)
CPT/HCPCS: 81003

== ENCOUNTER → 2020-07-25 | Outpatient (CLI) | payer MEDICARE, OTHER ==
[~2020-07-25] MED LIST changes: +PALI3TAB; -PALI3TAB PO
[2020-07-25 15:30] LABS: Lithium 0.42 mmol/L (0.60-1.20)
== END | disposition home or self-care (01) ==
LOC: LAB SHORT 09:05
PROVIDERS: Psychiatry & Neurology Psychiatry
DX: Z51.81 Encounter for therapeutic drug level monitoring (principal); E11.65 Type 2 diabetes mellitus with hyperglycemia; I11.0 Hypertensive heart disease with heart failure; I50.9 Heart failure, unspecified; Z79.899 Other long term (current) drug therapy
CPT/HCPCS: 80178

== ENCOUNTER 2020-07-29 22:07 | Emergency (ER) | payer MEDICARE, OTHER ==
[~2020-07-29] VITALS: Ht 175.3 cm; Wt 126.5 kg
[~2020-07-29 22:07] MED LIST changes: -AMOX250 PO; -ATOR20 PO; -BACL10 PO; -FLUT1DIS2 INH; -LITH300C PO; -LITH300ER PO; -MAGNESIUM OXID400 M1 PO; -METF500 PO; -MIRT15ST PO; -PALI3TAB; -POTCHL20ER PO; -ZYRTEC10 M1 PO
[2020-07-29] MEDS ORDERED: FLUT1DIS2 INH (22:33)
[2020-07-29] MEDS ORDERED: AMOX250 PO (22:35)
[2020-07-29] MEDS ORDERED: ASPI81CH PO (22:35)
[2020-07-29] MEDS ORDERED: ATOR20 PO (22:36)
[2020-07-29] MEDS ORDERED: BACL10 PO (22:37)
[2020-07-29] MEDS ORDERED: ZYRTEC10 M1 PO (22:38)
[2020-07-29 22:52] LABS: BASOPHILS ABSOLUTE AUTO 0.05 K/mm3 (0.00-0.23); BASOPHILS PERCENT AUTO 1 % (0-2); EOSINOPHILS ABSOLUTE AUTO 0.25 K/mm3 (0.00-0.68); EOSINOPHILS PERCENT AUTO 2 % (0-6); Hematocrit 37.2 % (33.0-51.0); Hemoglobin 11.6 g/dL (11.5-16.0); IMMATURE GRAN ABSOLUTE AUTO 0.07 K/mm3 (0.00-0.10); IMMATURE GRAN PERCENT AUTO 1 % (0-1); LYMPHOCYTES ABSOLUTE AUTO 1.92 K/mm3 (0.84-5.20); LYMPHOCYTES PERCENT AUTO 19 % (21-46); MONOCYTES PERCENT AUTO 5 % (4-13); Mean Corpuscular HGB 28.9 pg (26.0-34.0); Mean Corpuscular HGB Conc 31.2 g/dL (31.5-36.5); Mean Corpuscular Volume 93 fL (80-100); NEUTROPHILS ABSOLUTE AUTO 7.57 K/mm3 (1.96-9.15); NEUTROPHILS PERCENT AUTO 73 % (41-73); RDW Coefficient Variation 12.8 % (11.7-14.2); RDW Standard Deviation 43.7 fL (35.1-46.3); Red Blood Cell Count 4.01 M/mm3 (3.80-5.20); White Blood Cell Count 10.36 K/mm3 (4.00-11.30)
[2020-07-29 22:53] LABS: Mean Platelet Volume 10.2 fL (9.1-12.4); Platelet Count 224 K/mm3 (150-400)
[2020-07-29 23:07] LABS: Alanine Aminotransfer (ALT/SGP 20 U/L (12-78); Albumin, Blood 3.2 g/dL (3.4-5.0); Albumin/Globulin Ratio 0.8 (0.8-1.8); Alk Phos 107 U/L (50-136); Anion Gap -2 mmol/L (6-16); Aspartate Aminotrans (AST/SGOT 22 U/L (12-37); Bilirubin, Total 0.2 mg/dL (0.1-1.0); Blood Urea Nitrogen 10 mg/dL (8-24); Bun/Creatinine Ratio 15.6 (12.0-20.0); CO2, Blood 38 mmol/L (21-32); Calcium, Blood 8.8 mg/dL (8.5-10.1); Chloride, Blood 101 mmol/L (98-108); Creatinine, Blood 0.64 mg/dL (0.40-1.00); Globulin, Blood 3.9 g/dL (2.2-4.0); Glomerular Filtration Rate >60 (60-); Glucose, Blood 110 mg/dL (70-99); Potassium, Blood 5.3 mmol/L (3.5-5.5); Sodium, Blood 137 mmol/L (136-145); Total Protein, Blood 7.1 g/dL (6.4-8.2); Troponin I <0.015 ng/mL (0.000-0.040)
[2020-07-29] MEDS ORDERED: LITH300C PO (23:28)
[2020-07-29] MEDS ORDERED: LITH300ER PO (23:29)
[2020-07-29] MEDS ORDERED: MAGNESIUM OXID400 M1 PO (23:30)
[2020-07-29] MEDS ORDERED: METO25 PO (23:31)
[2020-07-29] MEDS ORDERED: METF500 PO (23:31)
[2020-07-29] MEDS ORDERED: MIRALAX17 GM PO (23:32)
[2020-07-29] MEDS ORDERED: MIRT15ST PO (23:32)
[2020-07-29] MEDS ORDERED: PALI3TAB (23:32)
[2020-07-29] MEDS ORDERED: PRAZ2 PO (23:33)
[2020-07-29] MEDS ORDERED: POTCHL20ER PO (23:33)
== END 2020-07-29 23:48 | disposition home or self-care (01) ==
LOC: ER 22:07
PROVIDERS: Emergency Medicine
DX: R07.89 Other chest pain (principal); I10 Essential (primary) hypertension; I25.2 Old myocardial infarction; Z88.5 Allergy status to narcotic agent; Z88.8 Allergy status to other drugs, medicaments and biological substances; Z88.0 Allergy status to penicillin; Z91.041 Radiographic dye allergy status; Z88.2 Allergy status to sulfonamides; Z79.899 Other long term (current) drug therapy; Z79.82 Long term (current) use of aspirin
CPT/HCPCS: 36415; 71045; 80053; 83690; 84484; 85025; 93005; 93010; 99285-25

== ENCOUNTER → 2020-08-24 | Outpatient (CLI) | payer MEDICARE, OTHER ==
[~2020-08-24] MED LIST changes: +AMOX250 PO; +ATOR20 PO; +BACL10 PO; +FLUT1DIS2 INH; +LITH300C PO; +LITH300ER PO; +MAGNESIUM OXID400 M1 PO; +METF500 PO; +MIRT15ST PO; +PALI3TAB PO; +POTCHL20ER PO; +ZYRTEC10 M1 PO
[2020-08-24 13:58] LABS: Anion Gap 0 mmol/L (6-16); Blood Urea Nitrogen 11 mg/dL (8-24); Bun/Creatinine Ratio 16.2 (12.0-20.0); CO2, Blood 36 mmol/L (21-32); Calcium, Blood 9.2 mg/dL (8.5-10.1); Chloride, Blood 100 mmol/L (98-108); Creatinine, Blood 0.68 mg/dL (0.40-1.00); Glomerular Filtration Rate >60 (60-); Glucose, Blood 162 mg/dL (70-99); Potassium, Blood 5.3 mmol/L (3.5-5.5); Sodium, Blood 136 mmol/L (136-145)
[2020-08-24 14:04] LABS: Alanine Aminotransfer (ALT/SGP 20 U/L (12-78); Albumin, Blood 3.2 g/dL (3.4-5.0); Albumin/Globulin Ratio 0.9 (0.8-1.8); Alk Phos 102 U/L (50-136); Anion Gap 1 mmol/L (6-16); Aspartate Aminotrans (AST/SGOT 7 U/L (12-37); Bilirubin, Total 0.2 mg/dL (0.1-1.0); Blood Urea Nitrogen 11 mg/dL (8-24); Bun/Creatinine Ratio 16.9 (12.0-20.0); CO2, Blood 35 mmol/L (21-32); Calcium, Blood 8.8 mg/dL (8.5-10.1); Chloride, Blood 99 mmol/L (98-108); Creatinine, Blood 0.65 mg/dL (0.40-1.00); Globulin, Blood 3.6 g/dL (2.2-4.0); Glomerular Filtration Rate >60 (60-); Glucose, Blood 157 mg/dL (70-99); Potassium, Blood 5.2 mmol/L (3.5-5.5); Sodium, Blood 135 mmol/L (136-145); Total Protein, Blood 6.8 g/dL (6.4-8.2)
[2020-08-24 14:24] LABS: Lithium 0.81 mmol/L (0.60-1.20)
== END | disposition home or self-care (01) ==
LOC: LAB 07:45 → LAB SHORT 07:45
PROVIDERS: Internal Medicine Interventional Cardiology; Psychiatry & Neurology Psychiatry
DX: Z51.81 Encounter for therapeutic drug level monitoring (principal); I11.0 Hypertensive heart disease with heart failure; I50.32 Chronic diastolic (congestive) heart failure; I35.0 Nonrheumatic aortic (valve) stenosis; E11.65 Type 2 diabetes mellitus with hyperglycemia
CPT/HCPCS: 80048; 80053; 80178; 83880

== ENCOUNTER → 2020-09-14 | Outpatient (CLI) | payer MEDICARE, OTHER ==
[2020-09-17 12:25] LABS: Source, Urine Clean Catch
[2020-09-17 13:57] LABS: Appearance, Urine Hazy (Clear); Bilirubin, Urine Neg (Neg); Blood, Urine Neg (Neg); Color, Urine Yellow (P-Yellow); Glucose Qualitative, Urine Neg (Neg); Ketones, Urine Neg (Neg); Leukocyte Esterase, Urine Neg (Neg); Nitrite, Urine Neg (Neg); Protein, Urine Neg (Neg); Specific Gravity, Urine 1.015 (1.003-1.022); Urobilinogen, Urine NORM (Normal)
[2020-09-17 14:31] LABS: Bacteria Mod /hpf; Red Blood Cells, Urine Not Seen /hpf (0-2); Squamous Epithelial Cells Many /hpf (Few); Triple Phosphate Crystals Mod /hpf; White Blood Cells, Urine 0-2 /hpf (0-5)
== END | disposition home or self-care (01) ==
LOC: LAB SHORT 12:22 → LAB 12:22
PROVIDERS: Physician Assistant
DX: N39.0 Urinary tract infection, site not specified (principal)
CPT/HCPCS: 81001; 87086

== ENCOUNTER → 2020-09-20 | Outpatient (CLI) | payer MEDICARE, OTHER ==
[2020-09-20 13:53] LABS: Lithium 1.07 mmol/L (0.60-1.20)
[2020-09-21 12:36] LABS: Source, Urine Clean Catch
[2020-09-21 14:54] LABS: Appearance, Urine Clear (Clear); Bilirubin, Urine Neg (Neg); Blood, Urine Neg (Neg); Color, Urine Yellow (P-Yellow); Glucose Qualitative, Urine Neg (Neg); Ketones, Urine Neg (Neg); Leukocyte Esterase, Urine Neg (Neg); Nitrite, Urine Neg (Neg); Protein, Urine Neg (Neg); Urobilinogen, Urine NORM (Normal); pH, Urine 6.5 (5.0-8.0)
== END | disposition home or self-care (01) ==
LOC: LAB 13:05 → LAB SHORT 13:05
PROVIDERS: Physician Assistant; Psychiatry & Neurology Psychiatry
DX: Z51.81 Encounter for therapeutic drug level monitoring (principal); I11.0 Hypertensive heart disease with heart failure; I50.9 Heart failure, unspecified; E11.65 Type 2 diabetes mellitus with hyperglycemia; N39.0 Urinary tract infection, site not specified; Z79.899 Other long term (current) drug therapy
CPT/HCPCS: 80178; 81003

== ENCOUNTER 2020-10-07 13:48 | Inpatient (IN) | payer MEDICARE, OTHER ==
[~2020-10-07] VITALS: Ht 152.4 cm; Wt 125.3 kg
[2020-10-07 15:09] LABS: BASOPHILS ABSOLUTE AUTO 0.04 K/mm3 (0.00-0.23); BASOPHILS PERCENT AUTO 0 % (0-2); EOSINOPHILS ABSOLUTE AUTO 0.22 K/mm3 (0.00-0.68); EOSINOPHILS PERCENT AUTO 2 % (0-6); Hematocrit 33.5 % (33.0-51.0); Hemoglobin 9.8 g/dL (11.5-16.0); IMMATURE GRAN PERCENT AUTO 1 % (0-1); LYMPHOCYTES ABSOLUTE AUTO 1.48 K/mm3 (0.84-5.20); LYMPHOCYTES PERCENT AUTO 12 % (21-46); MONOCYTES ABSOLUTE AUTO 0.48 K/mm3 (0.16-1.47); MONOCYTES PERCENT AUTO 4 % (4-13); Mean Corpuscular HGB 28.7 pg (26.0-34.0); Mean Corpuscular HGB Conc 29.3 g/dL (31.5-36.5); Mean Corpuscular Volume 98 fL (80-100); Mean Platelet Volume 10.9 fL (9.1-12.4); NEUTROPHILS ABSOLUTE AUTO 10.36 K/mm3 (1.96-9.15); NEUTROPHILS PERCENT AUTO 82 % (41-73); Platelet Count 183 K/mm3 (150-400); RDW Coefficient Variation 14.8 % (11.7-14.2); RDW Standard Deviation 53.3 fL (35.1-46.3); Red Blood Cell Count 3.41 M/mm3 (3.80-5.20); White Blood Cell Count 12.68 K/mm3 (4.00-11.30)
[2020-10-07 15:10] LABS: Bicarbonate Venous 26.8 mmol/L (24.0-30.0); PCO2 Venous 74.3 mmHg (38-42); PO2 Venous 98.6 mmHg (38-42)
[2020-10-07 15:11] LABS: pH Blood Venous 7.24 (7.34-7.37)
[2020-10-07 15:30] LABS: Ethanol (Alcohol), Blood, Med <3 mg/dL
[2020-10-07 15:44] LABS: Alanine Aminotransfer (ALT/SGP 14 U/L (12-78); Albumin/Globulin Ratio 0.8 (0.8-1.8); Alk Phos 72 U/L (50-136); Anion Gap 1 mmol/L (6-16); Aspartate Aminotrans (AST/SGOT 8 U/L (12-37); Bilirubin, Total 0.2 mg/dL (0.1-1.0); Blood Urea Nitrogen 25 mg/dL (8-24); CO2, Blood 31 mmol/L (21-32); Chloride, Blood 107 mmol/L (98-108); Creatinine, Blood 1.47 mg/dL (0.40-1.00); Globulin, Blood 3.8 g/dL (2.2-4.0); Glomerular Filtration Rate 38 (60-); Glucose, Blood 82 mg/dL (70-99); Potassium, Blood 6.4 mmol/L (3.5-5.5); Sodium, Blood 139 mmol/L (136-145); Total Protein, Blood 6.8 g/dL (6.4-8.2)
[2020-10-07 18:20] LABS: Lithium 1.61 mmol/L (0.60-1.20)
[2020-10-07 21:46] LABS: Bun/Creatinine Ratio 16.4 (12.0-20.0); Calcium, Blood 8.6 mg/dL (8.5-10.1); Creatinine, Blood 1.65 mg/dL (0.40-1.00); Potassium, Blood 6.3 mmol/L (3.5-5.5)
[2020-10-07 21:48] LABS: Source, Urine Clean Catch
[2020-10-07 21:55] LABS: Appearance, Urine Cloudy (Clear); Bilirubin, Urine Neg (Neg); Blood, Urine 5+ (Neg); Color, Urine Yellow (P-Yellow); Glucose Qualitative, Urine Neg (Neg); Ketones, Urine 1+ (Neg); Leukocyte Esterase, Urine 3+ (Neg); Nitrite, Urine Neg (Neg); Protein, Urine 3+ (Neg); Urobilinogen, Urine NORM (Normal)
[2020-10-07 22:02] LABS: White Blood Cells, Urine TNTC /hpf (0-5)
[2020-10-07 22:03] LABS: Bacteria Many /hpf; Squamous Epithelial Cells Few /hpf (Few)
[2020-10-07 22:05] LABS: U Amphetamine Screen Not Detected; U Barbituate Screen Not Detected; U Benzodiazapine Screen Not Detected; U Buprenorphine Screen Not Detected; U Cannabinoids Screen Not Detected; U Cocaine Screen Not Detected; U Methadone Screen Not Detected; U Methamphetamine Screen Not Detected; U Opiates Screen Not Detected; U Oxycodone Screen Not Detected; U Phencyclidine Screen Not Detected; U Propoxyphene Screen Not Detected
[2020-10-08 04:19] LABS: BASOPHILS ABSOLUTE AUTO 0.04 K/mm3 (0.00-0.23); BASOPHILS PERCENT AUTO 0 % (0-2); EOSINOPHILS ABSOLUTE AUTO 0.15 K/mm3 (0.00-0.68); EOSINOPHILS PERCENT AUTO 1 % (0-6); Hematocrit 31.2 % (33.0-51.0); Hemoglobin 9.1 g/dL (11.5-16.0); IMMATURE GRAN ABSOLUTE AUTO 0.06 K/mm3 (0.00-0.10); IMMATURE GRAN PERCENT AUTO 1 % (0-1); LYMPHOCYTES ABSOLUTE AUTO 1.13 K/mm3 (0.84-5.20); LYMPHOCYTES PERCENT AUTO 9 % (21-46); MONOCYTES ABSOLUTE AUTO 0.43 K/mm3 (0.16-1.47); MONOCYTES PERCENT AUTO 4 % (4-13); Mean Corpuscular HGB 28.2 pg (26.0-34.0); Mean Corpuscular HGB Conc 29.2 g/dL (31.5-36.5); Mean Corpuscular Volume 97 fL (80-100); Mean Platelet Volume 11.1 fL (9.1-12.4); NEUTROPHILS ABSOLUTE AUTO 10.65 K/mm3 (1.96-9.15); NEUTROPHILS PERCENT AUTO 85 % (41-73); Platelet Count 185 K/mm3 (150-400); RDW Standard Deviation 53.2 fL (35.1-46.3); Red Blood Cell Count 3.23 M/mm3 (3.80-5.20); White Blood Cell Count 12.46 K/mm3 (4.00-11.30)
[2020-10-08 04:55] LABS: Bun/Creatinine Ratio 19.4 (12.0-20.0); Calcium, Blood 8.5 mg/dL (8.5-10.1); Creatinine, Blood 1.39 mg/dL (0.40-1.00); Potassium, Blood 6.1 mmol/L (3.5-5.5)
[2020-10-08 05:23] LABS: Lithium 1.54 mmol/L (0.60-1.20)
--- NOTE | 2020-10-08 05:26 | NUR ---
CALLED DR CERON REGARDING HIGH K+. ORDERS GIVEN AND ENTERED INTO EMAR.
--- NOTE | 2020-10-08 07:45 | NUR ---
SHIFT SUMMARY PT ALERT. STABLE DENIES CHEST PAIN. SATS ABOVE 90% ON 1L NC. NG IN PLACE. PT VERY AGITATED T/O NIGHT YELLING AND TRYING TO GET OUT OF BED. DENIED PAIN. SAFETY WAS REINFORCED SEVERAL TIMES. DORMAN IN PLACE AND DRAINING. CALL LIGHT WITHIN REACH.
--- NOTE | 2020-10-08 08:00 | NUR ---
pt laying in bed lethargic, does wake and ask for ice chips, returned to sleep, she was given insulin and calcium gluconate for high k+, lungs are clear dim in bases, resp even and unlabored, no cough noted, hrr, tele in place running sr per monitor, see strip, no edema noted, ppp+1, cap refill <3ec, vs stable, afebrile, iv site is clear and patent, btx4, abd round soft notender, incont of urine and stool, attends in place, skin is ok, she is on br, will turn q2, bicarb infusing, call light in reach.
--- NOTE | 2020-10-08 09:15 | NUR ---
UDPDATE THIS RN CALLED POISON CONTROL. DR. CHAVARRIA UPDATED ON RECOMMENDATION FROM POISON CONTROL AND NEW ORDERS PROVIDED.
[2020-10-08 11:17] LABS: Bun/Creatinine Ratio 21.7 (12.0-20.0); Calcium, Blood 9.3 mg/dL (8.5-10.1); Creatinine, Blood 1.15 mg/dL (0.40-1.00); Potassium, Blood 5.8 mmol/L (3.5-5.5)
[2020-10-08 11:30] LABS: Lithium 1.51 mmol/L (0.60-1.20)
[2020-10-08 17:18] LABS: Bun/Creatinine Ratio 22.3 (12.0-20.0); Creatinine, Blood 0.99 mg/dL (0.40-1.00); Potassium, Blood 5.4 mmol/L (3.5-5.5)
[2020-10-08 17:30] LABS: Lithium 1.39 mmol/L (0.60-1.20)
--- NOTE | 2020-10-08 17:42 | NUR ---
PT HAD A BED BATH AND INCONT LARGE BM TODAY, SHE HAS BEEN SLEEPING MOST OF THE DAY, WAKES EASILY WHEN IN ROOM, SHE IS HALLUCINATING AT TIMES, ORDERED A FULL LIQUID DIET, CALL LIGHT IN REACH.
[2020-10-08 21:50] LABS: PO2 Arterial 63.3 mmHg (80-100); pH Blood Arterial 7.32 (7.35-7.45)
[2020-10-08 21:51] LABS: PCO2 Arterial 79.1 mmHg (35-45)
[2020-10-08 23:01] LABS: Anion Gap -3 mmol/L (6-16); Blood Urea Nitrogen 18 mg/dL (8-24); Bun/Creatinine Ratio 20.7 (12.0-20.0); CO2, Blood 39 mmol/L (21-32); Calcium, Blood 8.8 mg/dL (8.5-10.1); Chloride, Blood 103 mmol/L (98-108); Creatinine, Blood 0.87 mg/dL (0.40-1.00); Glomerular Filtration Rate >60 (60-); Glucose, Blood 100 mg/dL (70-99); Sodium, Blood 139 mmol/L (136-145)
[2020-10-08 23:13] LABS: Lithium 1.36 mmol/L (0.60-1.20)
--- NOTE | 2020-10-09 00:58 | NUR ---
POISON CONTROL POISON CONTROL HAS CALLED THIS RN 3XS THIS SHIFT CURRENTLY. UPDATED ON LABS, NEURO STATUS, PT CONDITION, ETC. POISON CONTROL QUESTIONED THE USE OF SODIUM BICARB GTT, DR COKER CLARIFIED THAT THE BICARB GTT WAS TO REMAIN INFUSING FOR PT'S HYPERKALEMIA. POISON CONTROL OKAY WITH THIS ANSWER. QRS AND QTC REMAIN WNL. REPEAT ABG SUGGESTED, ORDERED, COMPLETED. PT'S CO2 CRITICALLY HIGH. PT TOLD THAT BIPAP WOULD NEED TO REMAIN IN PLACE FOR LONG SHE CAN TOLERATE IT. SETTINGS 20/10 30%. PT RIPPED OFF A FEW TIMES. NEW MASK PLACED AND PT RESTING NOW. LITHIUM LEVELS NOTABLY CONTINUE TO DECREASE AND KIDNEY FUNCTION CONTINUES TO IMPROVER PER LABS. POISON CONTROL TO FOLLOW UP IN AM.
--- NOTE | 2020-10-09 04:59 | NUR ---
SHIFT SUMMARY SEE POISON CONTROL NOTE. PT HAS TOLERATED BEING ONBIPAP 20/10 30% FOR >7HOURS, PT'S ABG THIS SHIFT WITH CRITICAL HIGH CO2 AND ACIDOTIC PH. BICARB GTT STILL INFSUING PER EMAR. PT VOIDING LIGHT YELLOW/ INCONTINENT. ASPERCREME ORDERED REQUESTED BY PT FOR ARTHRITIC PAIN. OTHERWISE, PT HAS BEEN RESTING FOR MAJORITY OF SHIFT. HAS BEEN PLEASANT AND COOPERATIVE THIS SHIFT.
[2020-10-09 05:12] LABS: Lithium 1.25 mmol/L (0.60-1.20)
[2020-10-09 05:16] LABS: Anion Gap -2 mmol/L (6-16); Blood Urea Nitrogen 17 mg/dL (8-24); Bun/Creatinine Ratio 20.6 (12.0-20.0); CO2, Blood 39 mmol/L (21-32); Calcium, Blood 8.6 mg/dL (8.5-10.1); Chloride, Blood 101 mmol/L (98-108); Creatinine, Blood 0.83 mg/dL (0.40-1.00); Glomerular Filtration Rate >60 (60-); Glucose, Blood 98 mg/dL (70-99); Potassium, Blood 5.2 mmol/L (3.5-5.5); Sodium, Blood 138 mmol/L (136-145)
[2020-10-09 11:29] LABS: Anion Gap 1 mmol/L (6-16); Blood Urea Nitrogen 16 mg/dL (8-24); Bun/Creatinine Ratio 20.8 (12.0-20.0); CO2, Blood 38 mmol/L (21-32); Calcium, Blood 8.5 mg/dL (8.5-10.1); Chloride, Blood 99 mmol/L (98-108); Creatinine, Blood 0.77 mg/dL (0.40-1.00); Glomerular Filtration Rate >60 (60-); Glucose, Blood 165 mg/dL (70-99); Potassium, Blood 4.8 mmol/L (3.5-5.5); Sodium, Blood 138 mmol/L (136-145)
[2020-10-09 12:08] LABS: Lithium 1.19 mmol/L (0.60-1.20)
[2020-10-09 17:20] LABS: Anion Gap -1 mmol/L (6-16); Blood Urea Nitrogen 17 mg/dL (8-24); Bun/Creatinine Ratio 20.4 (12.0-20.0); CO2, Blood 41 mmol/L (21-32); Calcium, Blood 9.1 mg/dL (8.5-10.1); Chloride, Blood 100 mmol/L (98-108); Creatinine, Blood 0.83 mg/dL (0.40-1.00); Glomerular Filtration Rate >60 (60-); Glucose, Blood 91 mg/dL (70-99); Lithium 1.11 mmol/L (0.60-1.20); Potassium, Blood 5.3 mmol/L (3.5-5.5); Sodium, Blood 140 mmol/L (136-145)
--- NOTE | 2020-10-09 17:40 | NUR ---
PT HAD SEVERAL SMALL BM OF INCREASING SOFTNESS AND WAS INCONTINENT OF URINE 1X AND CONTINENT 4X. PT REPORTED HEADACHE AND RECEIVED ACETAMINOPHEN PER MAR. FLUIDS DISCONTINUED IN AM. PT BRADYCARDIC IN 50'S WITHOUT REPORTED SYMPTOMS. KATHI FROM POISON CONTROL CALLED FOR UPDATES AT 1040 AND 1405. TRANSFER ORDERS PLACED. REPORT GIVEN TO FELISHA MASTER MOTORCYCLE TECHNICIAN AT 1655 VIA PHONE. PT LEFT UNIT AT 1720. PT DENIES ADDITIONAL CONCERNS AT THIS TIME
--- NOTE | 2020-10-09 19:13 | NUR ---
PT TRANSFERED TO ROOM AND SETTLED. CALL LIGHT WITHIN REACH. PT A TWO PERSON TRANSFER FROM WHEELCHAIR. BED ALARM IN PLACE. NO DISTRESS NOTED WILL CONTINUE TO MONITOR.
[2020-10-09 23:12] LABS: Anion Gap -3 mmol/L (6-16); Blood Urea Nitrogen 15 mg/dL (8-24); Bun/Creatinine Ratio 21.1 (12.0-20.0); CO2, Blood 40 mmol/L (21-32); Calcium, Blood 8.9 mg/dL (8.5-10.1); Chloride, Blood 101 mmol/L (98-108); Creatinine, Blood 0.71 mg/dL (0.40-1.00); Glomerular Filtration Rate >60 (60-); Glucose, Blood 96 mg/dL (70-99); Potassium, Blood 5.1 mmol/L (3.5-5.5); Sodium, Blood 138 mmol/L (136-145)
[2020-10-09 23:33] LABS: Lithium 1.03 mmol/L (0.60-1.20)
--- NOTE | 2020-10-10 04:43 | NUR ---
SHIFT SUMMARY A/O X2, LETHARGIC T/O THE SHIFT. BIPAP IN PLACE MOST OF THE NIGHT, PT REFUSING TO WEAR SINCE APPROXIMATELY 0200. 5L VIA NC WITH CONT. BIOX IN PLACE. 2 MAX ASSIST. VSS, NO ACUTE CHANGES AT THIS TIME. BED IN LOWEST POSITION WITH CALL LIGHT IN REACH. WILL CONTINUE TO MONITOR AND REPORT TO ONCOMING RN.
[2020-10-10 05:27] LABS: Anion Gap -2 mmol/L (6-16); Blood Urea Nitrogen 12 mg/dL (8-24); Bun/Creatinine Ratio 18.4 (12.0-20.0); CO2, Blood 40 mmol/L (21-32); Calcium, Blood 8.9 mg/dL (8.5-10.1); Chloride, Blood 100 mmol/L (98-108); Creatinine, Blood 0.65 mg/dL (0.40-1.00); Glomerular Filtration Rate >60 (60-); Glucose, Blood 92 mg/dL (70-99); Potassium, Blood 5.4 mmol/L (3.5-5.5); Sodium, Blood 138 mmol/L (136-145)
--- NOTE | 2020-10-10 11:30 | NUR ---
MARLENE PT/OT EVAL PER DR DEON CALHOUN D.C
--- NOTE | 2020-10-10 12:48 | NUR ---
PHYS THERAPY REPORTS DIZZINESS WHEN ATTEMPTING TO STAND. PHYS THERAPY STATES PT UNSTEADY, NOT FOLLOWING COMMANDS WELL. NYSTAGMUS IN L EYE. COULD NOT MARCH IN PLACE. IS 1 MAX TO 2 ASST TO STAND PIVOT AT THIS TIME. COULD NOT WALK. I WENT TO ROOM AFTER THEIR ASSESSMENT. NO NYSTAGMUS NOTED WHILE LYING IN BED. PT DENIES DIZZINESS AT THIS TIME. ONLY WHILE STANDING. BP STABLE PER PHYS THERAPY.
--- NOTE | 2020-10-10 12:52 | NUR ---
CALLED DR LIZ RE PHYS THERAPY INFO.
--- NOTE | 2020-10-10 15:28 | NUR ---
SPOKE TO DR CHAVARRIA RE NYSTAGMUS AND DIZZINESS, NO NEW ORDRS.
--- NOTE | 2020-10-10 17:30 | NUR ---
PT PLEASNT TODAY. A/O X2-3. CONTINUES GENTLE TALKING T/O DAY. P/T WORKED WITH HER TODAY. UNABLE TO GET HER TO WALK OR MARCH IN PLACE. CONTINUES TO BE A 2 MAX ASST. FWW. GAIT BELT. NO OTHER CONCERNS NOTED. BED IN LOW POSITION, CALL LITE IN REACH, BED ALARM ON FOR SAFETY
--- NOTE | 2020-10-11 07:52 | NUR ---
NO CHANGES OVERNIGHT. TELE SR 60-70'S. WAKES EASILY TO CONVERSE WITH STAFF
--- NOTE | 2020-10-11 17:06 | NUR ---
Discharge Summary AOx2-3, forgetful. Discharging back to [facility]. Reviewed discharge paperwork with patient, no questions at this time. Copy given to patient. IV removed, WNL. Appetite is good. Transportation arrived at 1630, patient discharge approximately 1645 with 2L O2 (this is baseline). 2P max, transported via w/c. Personal belongings sent home.
== END 2020-10-11 16:59 | disposition home or self-care (01) | DRG 917 ==
LOC: ER 13:48 → MEDS 16:52 → PCU 16:52 → MEDS 10-09 17:20
PROVIDERS: Emergency Medicine; Internal Medicine; ADMIT Internal Medicine
PROC: 5A09457 Assistance with Respiratory Ventilation, 24-96 Consecutive Hours, Continuous Positive Airway Pressure (ICD-10-PCS; principal; 2020-10-07)
DX: T56.891A Toxic effect of other metals, accidental (unintentional), initial encounter (principal); G92 Toxic encephalopathy; J96.02 Acute respiratory failure with hypercapnia; Z68.43 Body mass index [BMI] 50.0-59.9, adult; I50.32 Chronic diastolic (congestive) heart failure; E87.2 Acidosis; N17.9 Acute kidney failure, unspecified; E11.9 Type 2 diabetes mellitus without complications; F43.10 Post-traumatic stress disorder, unspecified; F25.9 Schizoaffective disorder, unspecified; F31.9 Bipolar disorder, unspecified; G47.33 Obstructive sleep apnea (adult) (pediatric); J44.9 Chronic obstructive pulmonary disease, unspecified; E78.5 Hyperlipidemia, unspecified; E86.0 Dehydration; E66.01 Morbid (severe) obesity due to excess calories; I35.0 Nonrheumatic aortic (valve) stenosis; I27.20 Pulmonary hypertension, unspecified; E87.5 Hyperkalemia; D72.829 Elevated white blood cell count, unspecified; M19.90 Unspecified osteoarthritis, unspecified site; I11.0 Hypertensive heart disease with heart failure; Z88.5 Allergy status to narcotic agent; Z88.2 Allergy status to sulfonamides; Z88.8 Allergy status to other drugs, medicaments and biological substances; Z88.6 Allergy status to analgesic agent; Z91.040 Latex allergy status; Z90.49 Acquired absence of other specified parts of digestive tract; I25.2 Old myocardial infarction; Z79.82 Long term (current) use of aspirin; Z79.899 Other long term (current) drug therapy; Z79.84 Long term (current) use of oral hypoglycemic drugs
CPT/HCPCS: 36415; 36600; 71045; 80048; 80053; 80178; 81001; 82803; 82947; 83880; 84132; 84443; 85025; 87077; 87086; 87186; 93005; 93010; 94660; 94762; 96361; 96365; 97110; 97162; 97530; 99283; 99285-25; A9270; G0480; J0610; J1650; J1815; J2310; J7030; J7070

== ENCOUNTER → 2020-10-18 | Outpatient (CLI) | payer MEDICARE, OTHER ==
[2020-10-18 18:27] LABS: Lithium 0.46 mmol/L (0.60-1.20)
== END | disposition home or self-care (01) ==
LOC: LAB SHORT 13:07 → LAB 13:07
PROVIDERS: Psychiatry & Neurology Psychiatry
DX: Z51.89 Encounter for other specified aftercare (principal); I11.0 Hypertensive heart disease with heart failure; I50.9 Heart failure, unspecified; E11.65 Type 2 diabetes mellitus with hyperglycemia; Z79.899 Other long term (current) drug therapy
CPT/HCPCS: 80178

== ENCOUNTER → 2020-10-25 | Outpatient (CLI) | payer MEDICARE, OTHER | END | disposition home or self-care (01) | LOC: LAB 19:00 | DX: N39.0 Urinary tract infection, site not specified (principal) ==

== ENCOUNTER → 2020-11-13 | Outpatient (CLI) | payer MEDICARE, OTHER ==
[2020-11-13 13:21] LABS: BASOPHILS ABSOLUTE AUTO 0.04 K/mm3 (0.00-0.23); BASOPHILS PERCENT AUTO 1 % (0-2); EOSINOPHILS ABSOLUTE AUTO 0.24 K/mm3 (0.00-0.68); EOSINOPHILS PERCENT AUTO 3 % (0-6); Hematocrit 37.6 % (33.0-51.0); Hemoglobin 11.2 g/dL (11.5-16.0); IMMATURE GRAN ABSOLUTE AUTO 0.03 K/mm3 (0.00-0.10); IMMATURE GRAN PERCENT AUTO 0 % (0-1); LYMPHOCYTES ABSOLUTE AUTO 1.56 K/mm3 (0.84-5.20); LYMPHOCYTES PERCENT AUTO 18 % (21-46); MONOCYTES ABSOLUTE AUTO 0.38 K/mm3 (0.16-1.47); MONOCYTES PERCENT AUTO 5 % (4-13); Mean Corpuscular HGB 28.2 pg (26.0-34.0); Mean Corpuscular HGB Conc 29.8 g/dL (31.5-36.5); Mean Corpuscular Volume 95 fL (80-100); Mean Platelet Volume 10.8 fL (9.1-12.4); NEUTROPHILS ABSOLUTE AUTO 6.27 K/mm3 (1.96-9.15); NEUTROPHILS PERCENT AUTO 74 % (41-73); Platelet Count 238 K/mm3 (150-400); RDW Coefficient Variation 13.5 % (11.7-14.2); RDW Standard Deviation 47.5 fL (35.1-46.3); Red Blood Cell Count 3.97 M/mm3 (3.80-5.20); White Blood Cell Count 8.52 K/mm3 (4.00-11.30)
[2020-11-13 14:27] LABS: Alanine Aminotransfer (ALT/SGP 17 U/L (12-78); Albumin, Blood 3.2 g/dL (3.4-5.0); Albumin/Globulin Ratio 0.8 (0.8-1.8); Alk Phos 98 U/L (50-136); Anion Gap 0 mmol/L (6-16); Aspartate Aminotrans (AST/SGOT 10 U/L (12-37); Bilirubin, Total 0.3 mg/dL (0.1-1.0); Blood Urea Nitrogen 10 mg/dL (8-24); Bun/Creatinine Ratio 15.1 (12.0-20.0); CHOL/HDL RATIO 3.6; CO2, Blood 39 mmol/L (21-32); Calcium, Blood 9.1 mg/dL (8.5-10.1); Chloride, Blood 101 mmol/L (98-108); Cholesterol 131 mg/dL (50-200); Creatinine, Blood 0.66 mg/dL (0.40-1.00); Glomerular Filtration Rate >60 (60-); Glucose, Blood 110 mg/dL (70-99); HDL Cholesterol 36 mg/dL (>39); Low Density Lipoprotein Chol 71 mg/dL (0-110); Potassium, Blood 4.1 mmol/L (3.5-5.5); Sodium, Blood 140 mmol/L (136-145); Total Protein, Blood 7.2 g/dL (6.4-8.2); Triglycerides 119 mg/dL (30-160); Very Low Density Lipoprot Chol 23 mg/dL (6-32)
== END | disposition home or self-care (01) ==
LOC: LAB SHORT 07:50 → LAB 07:50
PROVIDERS: Physician Assistant
DX: I10 Essential (primary) hypertension (principal); E11.65 Type 2 diabetes mellitus with hyperglycemia; E78.5 Hyperlipidemia, unspecified
CPT/HCPCS: 80053; 80061; 83036; 85025

== ENCOUNTER → 2020-11-15 | Outpatient (CLI) | payer MEDICARE, OTHER ==
[2020-11-15 19:36] LABS: Source, Urine Clean Catch
[2020-11-15 19:39] LABS: Appearance, Urine Clear (Clear); Bilirubin, Urine Neg (Neg); Blood, Urine 1+ (Neg); Color, Urine Yellow (P-Yellow); Glucose Qualitative, Urine Neg (Neg); Ketones, Urine Neg (Neg); Leukocyte Esterase, Urine 3+ (Neg); Nitrite, Urine Neg (Neg); Protein, Urine Neg (Neg); Specific Gravity, Urine 1.005 (1.003-1.022); Urobilinogen, Urine NORM (Normal)
[2020-11-15 19:57] LABS: Bacteria Many /hpf; Red Blood Cells, Urine 0-2 /hpf (0-2); Squamous Epithelial Cells Mod /hpf (Few)
== END | disposition home or self-care (01) ==
LOC: LAB SHORT 19:35 → LAB 19:35
PROVIDERS: Physician Assistant
DX: N39.0 Urinary tract infection, site not specified (principal)
CPT/HCPCS: 81001; 87077; 87086; 87186

== ENCOUNTER → 2020-11-21 | Outpatient (CLI) | payer MEDICARE, OTHER ==
[2020-11-21 20:05] LABS: Lithium 0.22 mmol/L (0.60-1.20)
== END | disposition home or self-care (01) ==
LOC: LAB SHORT 11:26 → LAB 11:26
PROVIDERS: Psychiatry & Neurology Psychiatry
DX: Z51.81 Encounter for therapeutic drug level monitoring (principal); I11.0 Hypertensive heart disease with heart failure; I50.9 Heart failure, unspecified; E11.65 Type 2 diabetes mellitus with hyperglycemia; Z79.899 Other long term (current) drug therapy
CPT/HCPCS: 80178

== ENCOUNTER → 2020-12-12 | Outpatient (CLI) | payer MEDICARE, OTHER ==
[2020-12-12 18:50] LABS: Source, Urine Clean Catch
[2020-12-12 19:40] LABS: Bilirubin, Urine Neg (Neg); Blood, Urine Neg (Neg); Glucose Qualitative, Urine Neg (Neg); Ketones, Urine Neg (Neg); Leukocyte Esterase, Urine Neg (Neg); Nitrite, Urine Neg (Neg); Protein, Urine Neg (Neg); Specific Gravity, Urine 1.005 (1.003-1.022); Urobilinogen, Urine NORM (Normal); pH, Urine 6.5 (5.0-8.0)
[2020-12-12 19:42] LABS: Appearance, Urine Clear (Clear); Color, Urine Yellow (P-Yellow)
== END ==
LOC: LAB 10:30 → LAB SHORT 10:30
PROVIDERS: Physician Assistant
DX: N39.0 Urinary tract infection, site not specified (principal); R10.9 Unspecified abdominal pain; Z88.2 Allergy status to sulfonamides; Z88.6 Allergy status to analgesic agent; Z88.5 Allergy status to narcotic agent; Z91.040 Latex allergy status; Z88.4 Allergy status to anesthetic agent
CPT/HCPCS: 81003

== ENCOUNTER 2020-12-20 09:52 | Emergency (ER) | payer MEDICARE, OTHER ==
[~2020-12-20] VITALS: Ht 152.4 cm; Wt 122.5 kg
[2020-12-20 11:07] LABS: Base Excess Venous 6.4 mmol/L; Bicarbonate Venous 29.1 mmol/L (24.0-30.0); PO2 Venous 136 mmHg (38-42)
[2020-12-20 11:09] LABS: pH Blood Venous 7.34 (7.34-7.37)
[2020-12-20 11:17] LABS: Source, Urine Catheter
[2020-12-20 11:32] LABS: Alanine Aminotransfer (ALT/SGP 28 U/L (12-78); Albumin, Blood 3.1 g/dL (3.4-5.0); Albumin/Globulin Ratio 0.9 (0.8-1.8); Alk Phos 95 U/L (50-136); Anion Gap 3 mmol/L (6-16); Aspartate Aminotrans (AST/SGOT 34 U/L (12-37); Bilirubin, Direct <0.1 mg/dL (0.0-0.3); Bilirubin, Indirect Unable to Calculate mg/dL (0.1-0.7); Bilirubin, Total 0.3 mg/dL (0.1-1.0); Blood Urea Nitrogen 17 mg/dL (8-24); Bun/Creatinine Ratio 23.9 (12.0-20.0); CO2, Blood 30 mmol/L (21-32); Calcium, Blood 8.5 mg/dL (8.5-10.1); Chloride, Blood 105 mmol/L (98-108); Creatinine, Blood 0.71 mg/dL (0.40-1.00); Globulin, Blood 3.6 g/dL (2.2-4.0); Glomerular Filtration Rate >60 (60-); Glucose, Blood 132 mg/dL (70-99); Magnesium, Blood 2.6 mg/dL (1.6-2.4); Potassium, Blood 5.4 mmol/L (3.5-5.5); Sodium, Blood 138 mmol/L (136-145); Total Protein, Blood 6.7 g/dL (6.4-8.2); Troponin I <0.015 ng/mL (0.000-0.040)
[2020-12-20 11:39] LABS: Lithium 0.36 mmol/L (0.60-1.20)
[2020-12-20 11:42] LABS: Appearance, Urine Clear (Clear); Bilirubin, Urine Neg (Neg); Blood, Urine Neg (Neg); Color, Urine Yellow (P-Yellow); Glucose Qualitative, Urine Neg (Neg); Ketones, Urine Neg (Neg); Leukocyte Esterase, Urine Neg (Neg); Nitrite, Urine Neg (Neg); Protein, Urine Neg (Neg); Urobilinogen, Urine NORM (Normal)
[2020-12-20 13:10] LABS: BASOPHILS ABSOLUTE AUTO 0.04 K/mm3 (0.00-0.23); BASOPHILS PERCENT AUTO 0 % (0-2); EOSINOPHILS ABSOLUTE AUTO 0.26 K/mm3 (0.00-0.68); EOSINOPHILS PERCENT AUTO 2 % (0-6); Hematocrit 30.6 % (33.0-51.0); Hemoglobin 9.4 g/dL (11.5-16.0); IMMATURE GRAN ABSOLUTE AUTO 0.05 K/mm3 (0.00-0.10); IMMATURE GRAN PERCENT AUTO 1 % (0-1); LYMPHOCYTES ABSOLUTE AUTO 2.18 K/mm3 (0.84-5.20); LYMPHOCYTES PERCENT AUTO 20 % (21-46); MONOCYTES ABSOLUTE AUTO 0.67 K/mm3 (0.16-1.47); MONOCYTES PERCENT AUTO 6 % (4-13); Mean Corpuscular HGB 28.7 pg (26.0-34.0); Mean Corpuscular HGB Conc 30.7 g/dL (31.5-36.5); Mean Corpuscular Volume 94 fL (80-100); Mean Platelet Volume 10.4 fL (9.1-12.4); NEUTROPHILS ABSOLUTE AUTO 7.76 K/mm3 (1.96-9.15); NEUTROPHILS PERCENT AUTO 71 % (41-73); Platelet Count 232 K/mm3 (150-400); RDW Coefficient Variation 13.4 % (11.7-14.2); RDW Standard Deviation 46.3 fL (35.1-46.3); Red Blood Cell Count 3.27 M/mm3 (3.80-5.20); White Blood Cell Count 10.96 K/mm3 (4.00-11.30)
== END 2020-12-20 17:00 ==
LOC: ER 09:52
PROVIDERS: Student in an Organized Health Care Education/Training Program
DX: M54.2 Cervicalgia (principal); R07.9 Chest pain, unspecified; I11.0 Hypertensive heart disease with heart failure; I50.9 Heart failure, unspecified; J44.9 Chronic obstructive pulmonary disease, unspecified; E11.9 Type 2 diabetes mellitus without complications; E78.5 Hyperlipidemia, unspecified; I25.2 Old myocardial infarction; G47.33 Obstructive sleep apnea (adult) (pediatric); Z88.2 Allergy status to sulfonamides; Z88.8 Allergy status to other drugs, medicaments and biological substances; Z91.040 Latex allergy status; Z79.899 Other long term (current) drug therapy; Z79.84 Long term (current) use of oral hypoglycemic drugs; Z79.82 Long term (current) use of aspirin
CPT/HCPCS: 36415; 71045; 80048; 80076; 80178; 81003; 82803; 83605; 83690; 83735; 83880; 84484; 85025; 93005; 93010; 96374-59; 99285-25; J1885; P9612

== ENCOUNTER → 2020-12-21 | Outpatient (CLI) | payer MEDICARE, OTHER ==
[2020-12-21 15:00] LABS: Hematocrit 37.3 % (33.0-51.0); Hemoglobin 11.4 g/dL (11.5-16.0); Mean Corpuscular HGB 28.1 pg (26.0-34.0); Mean Corpuscular HGB Conc 30.6 g/dL (31.5-36.5); Mean Corpuscular Volume 92 fL (80-100); Platelet Count 280 K/mm3 (150-400); RDW Coefficient Variation 13.1 % (11.7-14.2); RDW Standard Deviation 44.7 fL (35.1-46.3); Red Blood Cell Count 4.05 M/mm3 (3.80-5.20); White Blood Cell Count 9.14 K/mm3 (4.00-11.30)
[2020-12-21 15:49] LABS: Lithium 0.38 mmol/L (0.60-1.20)
[2020-12-21 15:51] LABS: BAND PERCENT MAN 2 % (0-8); BASOPHILS ABSOLUTE MAN 0.09 K/mm3 (0.00-0.23); BASOPHILS PERCENT MAN 1 % (0-2); EOSINOPHILS ABSOLUTE MAN 0.09 K/mm3 (0.00-0.68); EOSINOPHILS PERCENT MAN 1 % (0-6); LYMPHOCYTES % ATYPICAL MANUAL 6 % (0-0); LYMPHOCYTES ABSOLUTE MAN 1.73 K/mm3 (0.84-5.20); LYMPHOCYTES PERCENT MAN 13 % (21-46); MONOCYTES ABSOLUTE MAN 0.09 K/mm3 (0.16-1.47); MONOCYTES PERCENT MAN 1 % (4-13); NEUTROPHILS ABSOLUTE MAN 7.12 K/mm3 (1.96-9.15); SEG NEUTROPHILS PERCENT MAN 76 % (41-73); TOTAL CELLS COUNTED 100
[2020-12-21 15:53] LABS: Alanine Aminotransfer (ALT/SGP 25 U/L (12-78); Albumin, Blood 3.4 g/dL (3.4-5.0); Albumin/Globulin Ratio 0.8 (0.8-1.8); Alk Phos 104 U/L (50-136); Anion Gap 3 mmol/L (6-16); Aspartate Aminotrans (AST/SGOT 14 U/L (12-37); Bilirubin, Total 0.3 mg/dL (0.1-1.0); Blood Urea Nitrogen 13 mg/dL (8-24); Bun/Creatinine Ratio 20.3 (12.0-20.0); CO2, Blood 31 mmol/L (21-32); Calcium, Blood 9.3 mg/dL (8.5-10.1); Chloride, Blood 106 mmol/L (98-108); Creatinine, Blood 0.64 mg/dL (0.40-1.00); Glomerular Filtration Rate >60 (60-); Glucose, Blood 113 mg/dL (70-99); Potassium, Blood 4.6 mmol/L (3.5-5.5); Sodium, Blood 140 mmol/L (136-145); Total Protein, Blood 7.4 g/dL (6.4-8.2)
== END | disposition home or self-care (01) ==
LOC: LAB 13:44 → LAB SHORT 13:44
PROVIDERS: Psychiatry & Neurology Psychiatry
DX: I11.0 Hypertensive heart disease with heart failure (principal); I50.9 Heart failure, unspecified; E03.9 Hypothyroidism, unspecified
CPT/HCPCS: 80053; 80178; 84443; 85007; 85027

== ENCOUNTER → 2020-12-28 | Outpatient (CLI) | payer MEDICARE, OTHER ==
[2020-12-28 13:42] LABS: Percent Saturation 16.4 % (15.0-50.0)
== END | disposition home or self-care (01) ==
LOC: LAB SHORT 11:27 → LAB 11:27
PROVIDERS: Physician Assistant
DX: D50.9 Iron deficiency anemia, unspecified (principal)
CPT/HCPCS: 82728; 83540; 83550

== ENCOUNTER → 2021-01-23 | Outpatient (CLI) | payer MEDICARE, OTHER ==
[2021-01-23 10:57] LABS: Lithium 0.39 mmol/L (0.60-1.20)
[2021-01-23 11:05] LABS: Alanine Aminotransfer (ALT/SGP 20 U/L (12-78); Albumin, Blood 3.3 g/dL (3.4-5.0); Albumin/Globulin Ratio 0.8 (0.8-1.8); Alk Phos 106 U/L (50-136); Anion Gap 4 mmol/L (6-16); Aspartate Aminotrans (AST/SGOT 12 U/L (12-37); Bilirubin, Total 0.2 mg/dL (0.1-1.0); Blood Urea Nitrogen 14 mg/dL (8-24); Bun/Creatinine Ratio 24.4 (12.0-20.0); CO2, Blood 33 mmol/L (21-32); Calcium, Blood 9.2 mg/dL (8.5-10.1); Chloride, Blood 102 mmol/L (98-108); Creatinine, Blood 0.57 mg/dL (0.40-1.00); Glomerular Filtration Rate >60 (60-); Glucose, Blood 144 mg/dL (70-99); Potassium, Blood 4.9 mmol/L (3.5-5.5); Sodium, Blood 139 mmol/L (136-145); Total Protein, Blood 7.3 g/dL (6.4-8.2)
== END | disposition home or self-care (01) ==
LOC: LAB 08:20 → LAB SHORT 08:20
PROVIDERS: Psychiatry & Neurology Psychiatry
DX: Z51.81 Encounter for therapeutic drug level monitoring (principal); I11.0 Hypertensive heart disease with heart failure; I50.9 Heart failure, unspecified; E11.65 Type 2 diabetes mellitus with hyperglycemia; Z79.899 Other long term (current) drug therapy
CPT/HCPCS: 80053; 80178

== ENCOUNTER 2021-02-26 04:05 | Emergency (ER) | payer MEDICARE, OTHER ==
[~2021-02-26] VITALS: Ht 167.6 cm; Wt 81.7 kg
== END 2021-02-26 04:26 | disposition home or self-care (01) ==
LOC: ER 04:05
DX: F25.9 Schizoaffective disorder, unspecified (principal); I11.0 Hypertensive heart disease with heart failure; I50.9 Heart failure, unspecified; J44.9 Chronic obstructive pulmonary disease, unspecified; E11.9 Type 2 diabetes mellitus without complications; G47.33 Obstructive sleep apnea (adult) (pediatric); E78.5 Hyperlipidemia, unspecified; I25.2 Old myocardial infarction; Z88.2 Allergy status to sulfonamides; Z91.040 Latex allergy status; Z88.8 Allergy status to other drugs, medicaments and biological substances; Z79.899 Other long term (current) drug therapy; Z79.82 Long term (current) use of aspirin

== ENCOUNTER → 2021-02-26 | Outpatient (CLI) | payer MEDICARE, OTHER ==
[2021-02-26 14:11] LABS: Valproic Acid 61.3 ug/mL (50.0-100.0)
[2021-02-26 14:16] LABS: Lithium 0.81 mmol/L (0.60-1.20)
== END ==
LOC: LAB SHORT 08:40
PROVIDERS: Psychiatry & Neurology Psychiatry
DX: Z51.81 Encounter for therapeutic drug level monitoring (principal); Z88.2 Allergy status to sulfonamides; Z88.6 Allergy status to analgesic agent; Z88.8 Allergy status to other drugs, medicaments and biological substances; Z91.040 Latex allergy status; Z91.048 Other nonmedicinal substance allergy status
CPT/HCPCS: 80164; 80178

== ENCOUNTER → 2021-03-06 | Outpatient (CLI) | payer MEDICARE, OTHER ==
[2021-03-06 15:40] LABS: Alanine Aminotransfer (ALT/SGP 18 U/L (12-78); Albumin, Blood 3.5 g/dL (3.4-5.0); Alk Phos 66 U/L (50-136); Anion Gap 2 mmol/L (6-16); Aspartate Aminotrans (AST/SGOT 9 U/L (12-37); Bilirubin, Total 0.2 mg/dL (0.1-1.0); Blood Urea Nitrogen 24 mg/dL (8-24); Bun/Creatinine Ratio 27.1 (12.0-20.0); CO2, Blood 35 mmol/L (21-32); Calcium, Blood 9.2 mg/dL (8.5-10.1); Chloride, Blood 103 mmol/L (98-108); Creatinine, Blood 0.89 mg/dL (0.40-1.00); Globulin, Blood 3.5 g/dL (2.2-4.0); Glomerular Filtration Rate >60 (60-); Glucose, Blood 89 mg/dL (70-99); Potassium, Blood 5.1 mmol/L (3.5-5.5); Sodium, Blood 140 mmol/L (136-145)
== END | disposition home or self-care (01) ==
LOC: LAB SHORT 08:30 → LAB 08:30
PROVIDERS: Physician Assistant
DX: Z13.228 Encounter for screening for other metabolic disorders (principal); E03.9 Hypothyroidism, unspecified
CPT/HCPCS: 80053; 84443

== ENCOUNTER 2021-03-07 13:41 | Emergency (ER) | payer MEDICARE, OTHER ==
[~2021-03-07] VITALS: Ht 152.4 cm; Wt 126.5 kg
[2021-03-07 15:26] LABS: Acetaminophen, Random <2.0 ug/mL (10.0-30.0); Alanine Aminotransfer (ALT/SGP 17 U/L (12-78); Albumin, Blood 3.2 g/dL (3.4-5.0); Albumin/Globulin Ratio 0.8 (0.8-1.8); Alk Phos 64 U/L (50-136); Anion Gap 4 mmol/L (6-16); Aspartate Aminotrans (AST/SGOT 7 U/L (12-37); Bilirubin, Total 0.4 mg/dL (0.1-1.0); Blood Urea Nitrogen 24 mg/dL (8-24); Bun/Creatinine Ratio 25.8 (12.0-20.0); CO2, Blood 35 mmol/L (21-32); Chloride, Blood 103 mmol/L (98-108); Creatinine, Blood 0.93 mg/dL (0.40-1.00); Ethanol (Alcohol), Blood, Med <3 mg/dL; Globulin, Blood 3.8 g/dL (2.2-4.0); Glomerular Filtration Rate >60 (60-); Glucose, Blood 82 mg/dL (70-99); Sodium, Blood 142 mmol/L (136-145)
[2021-03-07 15:59] LABS: BASOPHILS ABSOLUTE AUTO 0.03 K/mm3 (0.00-0.23); BASOPHILS PERCENT AUTO 0 % (0-2); EOSINOPHILS ABSOLUTE AUTO 0.25 K/mm3 (0.00-0.68); EOSINOPHILS PERCENT AUTO 3 % (0-6); Hematocrit 31.8 % (33.0-51.0); Hemoglobin 9.7 g/dL (11.5-16.0); IMMATURE GRAN ABSOLUTE AUTO 0.05 K/mm3 (0.00-0.10); IMMATURE GRAN PERCENT AUTO 1 % (0-1); LYMPHOCYTES ABSOLUTE AUTO 2.09 K/mm3 (0.84-5.20); LYMPHOCYTES PERCENT AUTO 21 % (21-46); MONOCYTES ABSOLUTE AUTO 0.62 K/mm3 (0.16-1.47); MONOCYTES PERCENT AUTO 6 % (4-13); Mean Corpuscular HGB Conc 30.5 g/dL (31.5-36.5); Mean Corpuscular Volume 95 fL (80-100); Mean Platelet Volume 10.5 fL (9.1-12.4); NEUTROPHILS ABSOLUTE AUTO 7.14 K/mm3 (1.96-9.15); NEUTROPHILS PERCENT AUTO 70 % (41-73); Platelet Count 230 K/mm3 (150-400); RDW Standard Deviation 48.7 fL (35.1-46.3); Red Blood Cell Count 3.35 M/mm3 (3.80-5.20); White Blood Cell Count 10.18 K/mm3 (4.00-11.30)
[2021-03-07 16:09] LABS: Source, Urine Catheter
[2021-03-07 16:14] LABS: Influenza A, PCR NEGATIVE (NEGATIVE); Influenza B, PCR NEGATIVE (NEGATIVE); Resp Syncytial Virus, PCR NEGATIVE (NEGATIVE); SARS-Cov-2 (COVID-19) PCR, MMC NEGATIVE (NEGATIVE)
[2021-03-07 16:14] LABS: Appearance, Urine Hazy (Clear); Bilirubin, Urine Neg (Neg); Blood, Urine 4+ (Neg); Color, Urine Yellow (P-Yellow); Glucose Qualitative, Urine Neg (Neg); Ketones, Urine Neg (Neg); Leukocyte Esterase, Urine 3+ (Neg); Nitrite, Urine Neg (Neg); Protein, Urine 1+ (Neg); Urobilinogen, Urine NORM (Normal)
[2021-03-07 16:25] LABS: Lithium 0.99 mmol/L (0.60-1.20)
[2021-03-07 16:33] LABS: U Amphetamine Screen Not Detected; U Barbituate Screen Not Detected; U Benzodiazapine Screen Not Detected; U Buprenorphine Screen Not Detected; U Cannabinoids Screen Not Detected; U Cocaine Screen Not Detected; U Methadone Screen Not Detected; U Methamphetamine Screen Not Detected; U Opiates Screen Not Detected; U Oxycodone Screen Not Detected; U Phencyclidine Screen Not Detected; U Propoxyphene Screen Not Detected
[2021-03-07 16:37] LABS: Bacteria Many /hpf; Squamous Epithelial Cells Few /hpf (Few); White Blood Cells, Urine 25-50 /hpf (0-5)
[2021-03-07] MEDS ORDERED: CEPH500 PO (17:04)
== END 2021-03-07 20:28 ==
LOC: ER 13:41
PROVIDERS: Emergency Medicine
DX: N39.0 Urinary tract infection, site not specified (principal); M25.511 Pain in right shoulder; Z88.2 Allergy status to sulfonamides; Z88.1 Allergy status to other antibiotic agents; Z91.040 Latex allergy status; Z79.899 Other long term (current) drug therapy; Z79.84 Long term (current) use of oral hypoglycemic drugs; Z79.82 Long term (current) use of aspirin; J44.9 Chronic obstructive pulmonary disease, unspecified; I11.0 Hypertensive heart disease with heart failure; I50.9 Heart failure, unspecified; E11.9 Type 2 diabetes mellitus without complications; E78.5 Hyperlipidemia, unspecified; I25.2 Old myocardial infarction; Z20.822 Contact with and (suspected) exposure to COVID-19
CPT/HCPCS: 0241U; 36415; 71045; 73030; 80053; 80178; 81001; 84443; 85025; 87077; 87086; 87186; 93005; 93010; 96365; 96366; 99285-25; G0480; J0696

== ENCOUNTER → 2021-04-09 | Outpatient (CLI) | payer MEDICARE, OTHER ==
[2021-04-09 12:45] LABS: Source, Urine Clean Catch
[2021-04-09 13:32] LABS: Appearance, Urine Clear (Clear); Bilirubin, Urine Neg (Neg); Blood, Urine Neg (Neg); Glucose Qualitative, Urine Neg (Neg); Ketones, Urine Neg (Neg); Leukocyte Esterase, Urine Neg (Neg); Nitrite, Urine Neg (Neg); Protein, Urine Neg (Neg); Urobilinogen, Urine NORM (Normal)
[2021-04-09 13:49] LABS: Color, Urine Pale Yellow (P-Yellow)
== END | disposition home or self-care (01) ==
LOC: LAB SHORT 10:00
PROVIDERS: Physician Assistant
DX: N39.0 Urinary tract infection, site not specified (principal)
CPT/HCPCS: 81003

== ENCOUNTER 2021-04-13 18:44 | Emergency (ER) | payer MEDICARE, OTHER ==
[~2021-04-13] VITALS: Ht 152.4 cm; Wt 117.9 kg
[2021-04-13 19:19] LABS: BASOPHILS ABSOLUTE AUTO 0.04 K/mm3 (0.00-0.23); BASOPHILS PERCENT AUTO 0 % (0-2); EOSINOPHILS PERCENT AUTO 3 % (0-6); Hematocrit 31.9 % (33.0-51.0); Hemoglobin 9.8 g/dL (11.5-16.0); IMMATURE GRAN ABSOLUTE AUTO 0.03 K/mm3 (0.00-0.10); IMMATURE GRAN PERCENT AUTO 0 % (0-1); LYMPHOCYTES ABSOLUTE AUTO 2.09 K/mm3 (0.84-5.20); LYMPHOCYTES PERCENT AUTO 22 % (21-46); MONOCYTES PERCENT AUTO 7 % (4-13); Mean Corpuscular HGB 29.8 pg (26.0-34.0); Mean Corpuscular HGB Conc 30.7 g/dL (31.5-36.5); Mean Corpuscular Volume 97 fL (80-100); Mean Platelet Volume 9.8 fL (9.1-12.4); NEUTROPHILS PERCENT AUTO 67 % (41-73); Platelet Count 207 K/mm3 (150-400); RDW Coefficient Variation 13.8 % (11.7-14.2); RDW Standard Deviation 49.3 fL (35.1-46.3); Red Blood Cell Count 3.29 M/mm3 (3.80-5.20); White Blood Cell Count 9.66 K/mm3 (4.00-11.30)
[2021-04-13 19:40] LABS: Alanine Aminotransfer (ALT/SGP 15 U/L (12-78); Albumin, Blood 2.8 g/dL (3.4-5.0); Albumin/Globulin Ratio 0.8 (0.8-1.8); Alk Phos 57 U/L (50-136); Anion Gap 3 mmol/L (6-16); Aspartate Aminotrans (AST/SGOT 7 U/L (12-37); Bilirubin, Total 0.1 mg/dL (0.1-1.0); Blood Urea Nitrogen 25 mg/dL (8-24); Bun/Creatinine Ratio 31.2 (12.0-20.0); CO2, Blood 35 mmol/L (21-32); Calcium, Blood 8.6 mg/dL (8.5-10.1); Chloride, Blood 101 mmol/L (98-108); Globulin, Blood 3.4 g/dL (2.2-4.0); Glomerular Filtration Rate >60 (60-); Glucose, Blood 89 mg/dL (70-99); Potassium, Blood 5.8 mmol/L (3.5-5.5); Sodium, Blood 139 mmol/L (136-145); Total Protein, Blood 6.2 g/dL (6.4-8.2)
[2021-04-13 20:32] LABS: Magnesium, Blood 2.4 mg/dL (1.6-2.4); Troponin I <0.015 ng/mL (0.000-0.040)
== END 2021-04-13 23:06 | disposition home or self-care (01) ==
LOC: ER 18:44
PROVIDERS: Emergency Medicine
DX: R07.9 Chest pain, unspecified (principal); D64.9 Anemia, unspecified; E87.5 Hyperkalemia; J44.9 Chronic obstructive pulmonary disease, unspecified; I11.0 Hypertensive heart disease with heart failure; I50.9 Heart failure, unspecified; E11.9 Type 2 diabetes mellitus without complications; G47.33 Obstructive sleep apnea (adult) (pediatric); E78.5 Hyperlipidemia, unspecified; I25.2 Old myocardial infarction; Z88.2 Allergy status to sulfonamides; Z91.040 Latex allergy status; Z88.8 Allergy status to other drugs, medicaments and biological substances; Z79.84 Long term (current) use of oral hypoglycemic drugs; Z79.82 Long term (current) use of aspirin; Z79.899 Other long term (current) drug therapy
CPT/HCPCS: 36415; 71045; 80053; 83735; 83880; 84484; 85025; 93005; 93010; A9270

== ENCOUNTER → 2021-04-29 | Outpatient (CLI) | payer MEDICARE, OTHER ==
[2021-04-29 12:55] LABS: Valproic Acid 44.4 ug/mL (50.0-100.0)
[2021-04-29 12:58] LABS: Lithium 0.81 mmol/L (0.60-1.20)
[2021-04-30 19:18] LABS: Source, Urine Clean Catch
[2021-04-30 19:42] LABS: Bilirubin, Urine Neg (Neg); Blood, Urine Neg (Neg); Glucose Qualitative, Urine Neg (Neg); Ketones, Urine Neg (Neg); Leukocyte Esterase, Urine 3+ (Neg); Nitrite, Urine Neg (Neg); Protein, Urine 1+ (Neg); Urobilinogen, Urine NORM (Normal)
[2021-04-30 19:52] LABS: Appearance, Urine Clear (Clear); Color, Urine Pale Yellow (P-Yellow)
[2021-04-30 19:53] LABS: Bacteria Few /hpf; Red Blood Cells, Urine 0-2 /hpf (0-2); Squamous Epithelial Cells Rare /hpf (Few)
== END ==
LOC: LAB SHORT 11:07
PROVIDERS: Physician Assistant; Psychiatry & Neurology Psychiatry
DX: Z51.81 Encounter for therapeutic drug level monitoring (principal); Z79.82 Long term (current) use of aspirin
CPT/HCPCS: 80164; 80178; 81001

== ENCOUNTER → 2021-05-29 | Outpatient (CLI) | payer MEDICARE, OTHER ==
[2021-05-29 12:37] LABS: Valproic Acid 52.7 ug/mL (50.0-100.0)
[2021-05-29 12:40] LABS: Lithium 0.73 mmol/L (0.60-1.20)
== END ==
LOC: LAB SHORT 09:23
PROVIDERS: Psychiatry & Neurology Psychiatry
DX: Z51.81 Encounter for therapeutic drug level monitoring (principal); Z79.899 Other long term (current) drug therapy
CPT/HCPCS: 80164; 80178

== ENCOUNTER → 2021-06-03 | Outpatient (CLI) | payer MEDICARE, OTHER ==
[2021-06-03 12:09] LABS: Source, Urine Clean Catch
[2021-06-03 13:34] LABS: Bilirubin, Urine Neg (Neg); Blood, Urine Neg (Neg); Glucose Qualitative, Urine Neg (Neg); Ketones, Urine Neg (Neg); Leukocyte Esterase, Urine Neg (Neg); Nitrite, Urine Neg (Neg); Protein, Urine Neg (Neg); Urobilinogen, Urine NORM (Normal)
[2021-06-03 13:39] LABS: Appearance, Urine Clear (Clear); Color, Urine Pale Yellow (P-Yellow)
== END ==
LOC: LAB SHORT 10:00 → LAB 10:00
PROVIDERS: Physician Assistant
DX: N39.0 Urinary tract infection, site not specified (principal)
CPT/HCPCS: 81003

== ENCOUNTER 2021-06-24 09:04 | Inpatient (IN) | payer MEDICARE, OTHER ==
[~2021-06-24] VITALS: Ht 152.4 cm; Wt 118.6 kg
[~2021-06-24 09:04] MED LIST changes: +ASPIR 8181 M1 PO; +ESKALITH PO; -LITH300C PO
[2021-06-24] MEDS ORDERED: FLUT1DIS5 INH (10:13)
[2021-06-24 10:47] LABS: Influenza A, PCR NEGATIVE (NEGATIVE); Influenza B, PCR NEGATIVE (NEGATIVE); Resp Syncytial Virus, PCR NEGATIVE (NEGATIVE); SARS-Cov-2 (COVID-19) PCR, MMC NEGATIVE (NEGATIVE)
[2021-06-24 11:31] LABS: Base Excess Venous 8.6 mmol/L; PCO2 Venous 67.8 mmHg (38-42); PO2 Venous 39.2 mmHg (38-42); pH Blood Venous 7.32 (7.34-7.37)
[2021-06-24 12:05] LABS: BASOPHILS ABSOLUTE AUTO 0.02 K/mm3 (0.00-0.23); BASOPHILS PERCENT AUTO 0 % (0-2); EOSINOPHILS ABSOLUTE AUTO 0.07 K/mm3 (0.00-0.68); EOSINOPHILS PERCENT AUTO 1 % (0-6); Hematocrit 35.7 % (33.0-51.0); IMMATURE GRAN ABSOLUTE AUTO 0.02 K/mm3 (0.00-0.10); IMMATURE GRAN PERCENT AUTO 0 % (0-1); LYMPHOCYTES PERCENT AUTO 11 % (21-46); MONOCYTES ABSOLUTE AUTO 0.44 K/mm3 (0.16-1.47); MONOCYTES PERCENT AUTO 6 % (4-13); Mean Corpuscular HGB 30.1 pg (26.0-34.0); Mean Corpuscular HGB Conc 30.8 g/dL (31.5-36.5); Mean Corpuscular Volume 98 fL (80-100); Mean Platelet Volume 10.1 fL (9.1-12.4); NEUTROPHILS ABSOLUTE AUTO 5.65 K/mm3 (1.96-9.15); NEUTROPHILS PERCENT AUTO 81 % (41-73); Platelet Count 173 K/mm3 (150-400); RDW Coefficient Variation 13.3 % (11.7-14.2); RDW Standard Deviation 47.7 fL (35.1-46.3); Red Blood Cell Count 3.66 M/mm3 (3.80-5.20)
[2021-06-24 12:13] LABS: Albumin, Blood 3.2 g/dL (3.4-5.0); Albumin/Globulin Ratio 0.8 (0.8-1.8); Bilirubin, Total 0.2 mg/dL (0.1-1.0); Bun/Creatinine Ratio 26.8 (12.0-20.0); Calcium, Blood 9.1 mg/dL (8.5-10.1); Creatinine, Blood 0.93 mg/dL (0.40-1.00); Globulin, Blood 3.8 g/dL (2.2-4.0); Potassium, Blood 4.4 mmol/L (3.5-5.5)
[2021-06-24 14:14] LABS: Lithium 0.93 mmol/L (0.60-1.20)
[2021-06-24] MEDS ORDERED: ACET500 PO (15:36)
[2021-06-24] MEDS ORDERED: DIVA125 PO (15:46)
[2021-06-24] MEDS ORDERED: FERSU300 PO (16:03)
[2021-06-24] MEDS ORDERED: Flonase 0.05% N16 GM (16:04)
[2021-06-24] MEDS ORDERED: FURO20 PO (16:04)
[2021-06-24] MEDS ORDERED: Haldol5 MG/1 ML PO (16:06)
[2021-06-24] MEDS ORDERED: HYDCOR2.5C TOP (16:07)
[2021-06-24] MEDS ORDERED: LISI20 PO (16:08)
[2021-06-24] MEDS ORDERED: L-Lysine500 M1 PO (16:08)
[2021-06-24] MEDS ORDERED: MELATONIN5 M1 PO (16:09)
[2021-06-24] MEDS ORDERED: NYSTOP15 GM TOP (16:10)
[2021-06-24] MEDS ORDERED: POTA10T PO (16:11)
[2021-06-24] MEDS ORDERED: DOCUZEN 8.6-501 EACH PO (16:11)
[2021-06-24] MEDS ORDERED: VITAMIN D31000 UNI1 PO (16:12)
[2021-06-24] MEDS ORDERED: ALMACONE SUSPE355 ML PO (16:15)
[2021-06-24 17:11] LABS: Source, Urine Foley catheter
[2021-06-24 17:57] LABS: Appearance, Urine Clear (Clear); Bilirubin, Urine Neg (Neg); Blood, Urine Neg (Neg); Color, Urine Yellow (P-Yellow); Glucose Qualitative, Urine Neg (Neg); Ketones, Urine Neg (Neg); Leukocyte Esterase, Urine Neg (Neg); Nitrite, Urine Neg (Neg); Protein, Urine Neg (Neg); Urobilinogen, Urine NORM (Normal)
--- NOTE | 2021-06-24 18:04 | NUR ---
SHIFT SUMMARY: PATIENT ADMIT TO PCU 02 AT 1505. USED SLIDE SHEET TO TRANSFER. ALERT AND ORIENTED X3-4. PERRLA. DENIES NUMBNESS/TINGLING. USES WALKER AT BASELINE. VERY MINIMAL AMBULATION AT [facility]. MED REC COMPLETED AND DR. CHAVARRIA NOTIFIED. ON 2-3L NASAL CANNULA SATING LOW 90'S. COARSE SOUNDING LUNGS. OCCASIONAL MOIST/LOOSE COUGH. BIPAP ON STANDBY AT BEDSIDE SETTINGS 12/5 AND 35% FIO2. WEARING WHEN SLEEPING. TELE SHOWING SINUS RHYTHM WITH HR 70'S. DENIES CHEST PAIN/PRESSURE. BP STABLE. HARD TO ASSESS EDEMA WITH OBESITY. DENIES ABDOMINAL PAIN/NAUSEA. TOLERATING PO. SWALLOW WNL. DORMAN CATH INSERTED THIS SHIFT AND UA SENT TO LAB. CLEAR/YELLOW URINE DRAINING TO GRAVITY. AC BLOOD SUGARS. ADMIT COMPLETE. ORIENTED TO ROOM/UNIT. USING CALL LIGHT. Q2 TURNING AND NEEDED. DENIES NEEDS. EATING SOUP AT THIS TIME. WILL CONTINUE TO MONITOR AND REPORT OFF.
[2021-06-25 03:51] LABS: Base Excess Venous 10.2 mmol/L; Bicarbonate Venous 32.3 mmol/L (24.0-30.0); PCO2 Venous 58.1 mmHg (38-42); PO2 Venous 70.9 mmHg (38-42); pH Blood Venous 7.39 (7.34-7.37)
[2021-06-25 04:27] LABS: BASOPHILS ABSOLUTE AUTO 0.01 K/mm3 (0.00-0.23); BASOPHILS PERCENT AUTO 0 % (0-2); EOSINOPHILS PERCENT AUTO 0 % (0-6); Hematocrit 34.9 % (33.0-51.0); Hemoglobin 10.7 g/dL (11.5-16.0); IMMATURE GRAN ABSOLUTE AUTO 0.05 K/mm3 (0.00-0.10); IMMATURE GRAN PERCENT AUTO 1 % (0-1); LYMPHOCYTES ABSOLUTE AUTO 0.71 K/mm3 (0.84-5.20); LYMPHOCYTES PERCENT AUTO 10 % (21-46); MONOCYTES ABSOLUTE AUTO 0.21 K/mm3 (0.16-1.47); MONOCYTES PERCENT AUTO 3 % (4-13); Mean Corpuscular HGB 29.9 pg (26.0-34.0); Mean Corpuscular HGB Conc 30.7 g/dL (31.5-36.5); Mean Corpuscular Volume 98 fL (80-100); Mean Platelet Volume 10.4 fL (9.1-12.4); NEUTROPHILS ABSOLUTE AUTO 6.19 K/mm3 (1.96-9.15); NEUTROPHILS PERCENT AUTO 86 % (41-73); Platelet Count 184 K/mm3 (150-400); RDW Standard Deviation 46.8 fL (35.1-46.3); Red Blood Cell Count 3.58 M/mm3 (3.80-5.20); White Blood Cell Count 7.17 K/mm3 (4.00-11.30)
[2021-06-25 04:56] LABS: Thyroxine (T4) 4.8 ug/dL (4.8-13.9)
[2021-06-25 04:57] LABS: Albumin, Blood 2.9 g/dL (3.4-5.0); Anion Gap 5 mmol/L (6-16); Blood Urea Nitrogen 31 mg/dL (8-24); Bun/Creatinine Ratio 38.7 (12.0-20.0); CO2, Blood 33 mmol/L (21-32); Calcium, Blood 8.8 mg/dL (8.5-10.1); Chloride, Blood 101 mmol/L (98-108); Glomerular Filtration Rate >60 (60-); Glucose, Blood 125 mg/dL (70-99); Potassium, Blood 5.8 mmol/L (3.5-5.5); Sodium, Blood 139 mmol/L (136-145)
--- NOTE | 2021-06-25 05:48 | NUR ---
SHIFT SUMMARY PATIENT ALERT AND ORIENTED x3-4. ANSWERS QUESTIONS APPROPRIATELY. VSS. PATIENT ALTERNATING BETWEEN BIPAP AND 2-L NASAL CANNULA T/O NIGHT WITH O2 MAINTAINING ABOVE 90%. NO CHANGE TO BIPAP SETTINGS. DENIES CHEST PAIN OR PRESSURE DURING THE SHIFT. PATIENT COMPLAINING OF CHRONIC PAIN, MEDICATED PER EMAR. Q2 TURNS. DORMAN IN PLACE DRAINING CLEAR/YELLOW URINE TO GRAVTIY. PATIENT ABLE TO MAKE NEEDS KNOWN TO STAFF. CALL LIGHT IN REACH, BED IN LOW POSITION. WILL REPORT TO DAY SHIFT RN.
--- NOTE | 2021-06-25 08:21 | NUR ---
Alert, oriented to person, following directions, and has some understanding of why she came to the hospital, although she doesn'tknow which hospital it is. She has some limitations in understanding and communication. Lives at [facility] in [place], I am told in report. Assisted up to side of bed, and then to chair. Pt ambulated the short distance with walker, which she says she uses normally. Incontinence of bowel noted upon activity. Tamiko was dc'd as pt is on baseline dose of oxygen, spo2 95-96, with respiratory rate of 17/min. She was able to transfer to the chair with minimal assistance. Call light within her reach. She sat up and ate breakfast with a very good appetite.
--- NOTE | 2021-06-25 08:33 | NUR ---
Call from Shantel, who identified herself as the nurse calling from [facility]. She will try to get the pt's home medication paliperidone here to the hospital for us for administration.
--- NOTE | 2021-06-25 12:56 | NUR ---
PT called for help to the bathroom. Ambulated to the bathroom, using the walker, to void and have a BM. tolerated very well.
--- NOTE | 2021-06-25 13:38 | NUR ---
Pt walked to bathroom, minimal assistance needed. Also helped to shower, and then back to the recliner chair . Sitting up drinking decaf tea at this time.
--- NOTE | 2021-06-25 16:08 | NUR ---
Pt is currently getting an echocardiogram in the room
--- NOTE | 2021-06-25 18:01 | NUR ---
Shweta wore the nasal cannula, 2 l/min delivery all day. Morrison dc'd this morning, and she has been up regularly to the bathroom for voiding and had a BM. Also tolerated showering well. States she is feeling well this evening. Noted productive occasional cough. Encouraged her to keep up her activity as tolerated. Sinus rhythm on telemetry monitoring, occasionally sinus bradycardia 46-55 bpm. Blood pressure is stable, and systolic greater than 100 consistently. Good appetite.
[2021-06-26 04:20] LABS: BASOPHILS ABSOLUTE AUTO 0.01 K/mm3 (0.00-0.23); BASOPHILS PERCENT AUTO 0 % (0-2); EOSINOPHILS PERCENT AUTO 0 % (0-6); Hematocrit 34.2 % (33.0-51.0); Hemoglobin 10.5 g/dL (11.5-16.0); IMMATURE GRAN ABSOLUTE AUTO 0.07 K/mm3 (0.00-0.10); IMMATURE GRAN PERCENT AUTO 1 % (0-1); LYMPHOCYTES ABSOLUTE AUTO 1.13 K/mm3 (0.84-5.20); LYMPHOCYTES PERCENT AUTO 12 % (21-46); MONOCYTES ABSOLUTE AUTO 0.24 K/mm3 (0.16-1.47); MONOCYTES PERCENT AUTO 3 % (4-13); Mean Corpuscular HGB 29.6 pg (26.0-34.0); Mean Corpuscular HGB Conc 30.7 g/dL (31.5-36.5); Mean Corpuscular Volume 96 fL (80-100); Mean Platelet Volume 10.4 fL (9.1-12.4); NEUTROPHILS ABSOLUTE AUTO 7.71 K/mm3 (1.96-9.15); NEUTROPHILS PERCENT AUTO 84 % (41-73); Platelet Count 199 K/mm3 (150-400); RDW Coefficient Variation 12.9 % (11.7-14.2); RDW Standard Deviation 46.2 fL (35.1-46.3); Red Blood Cell Count 3.55 M/mm3 (3.80-5.20); White Blood Cell Count 9.16 K/mm3 (4.00-11.30)
[2021-06-26 04:38] LABS: Albumin, Blood 2.8 g/dL (3.4-5.0); Anion Gap 4 mmol/L (6-16); Blood Urea Nitrogen 36 mg/dL (8-24); Bun/Creatinine Ratio 46.2 (12.0-20.0); CO2, Blood 33 mmol/L (21-32); Calcium, Blood 8.6 mg/dL (8.5-10.1); Chloride, Blood 100 mmol/L (98-108); Creatinine, Blood 0.78 mg/dL (0.40-1.00); Glomerular Filtration Rate >60 (60-); Glucose, Blood 135 mg/dL (70-99); Phosphorus, Blood 3.9 mg/dL (2.5-4.9); Potassium, Blood 5.8 mmol/L (3.5-5.5); Sodium, Blood 137 mmol/L (136-145)
--- NOTE | 2021-06-26 05:43 | NUR ---
SHIFT SUMMARY NO ACUTE CHANGES THIS SHIFT. PATIENT ALERT AND ORIENTED TO HER BASELINE. VSS. PATIENT ALTERNATING BETWEEN NC AND BIPAP. O2 SAT LOW TO MID 90s. NO CHANGES TO SETTINGS SINCE ADMISSION, SEE RT NOTES. INCONTINENT OF BOWEL AND BLADDER DURING THE NIGHT DESPITE AMBULATING INTO BATHROOM TO VOID ON DAY SHIFT. PATIENT EDUCATED ON USING CALL LIGHT TO LET STAFF KNOW WHEN SHE NEEDS TO VOID TO PREVENT SKIN BREAKDOWN. ATTENDS IN PLACE. REPOSITIONED Q2 AND PRN. COMPLAINTS OF CHRONIC BACK PAIN, MEDICATED PER EMAR. CALL LIGHT IN REACH, BED IN LOW POSITION. WILL REPORT TO DAY SHIFT RN.
--- NOTE | 2021-06-26 10:52 | NUR ---
Pt requested that her diaper be changed. Then said that she needed to void as well. Walker used by pt to go into bathroom and void. Pt then sat up in chair to eat breakfast, take medications. Difficulty with the Right arm IV, placement sensitive to all movement since it is located in the ACspace. After some time the pt said that her arm was hurting, and infiltration was confirmed. IV dc'd and new IV placed in her left forearm. She states this morning that she is very tired. AFter breakfast she got back into bed and has been sleeping while wearing the bipap. She awakens easily, opens eyes spontaneously.
--- NOTE | 2021-06-26 11:38 | NUR ---
Assisted to bathroom by APPRENTICESHIP REPRESENTATIVE/PCT, then to chair.
--- NOTE | 2021-06-26 11:53 | NUR ---
Sitting up in chair eating lunch.
[2021-06-26] MEDS ORDERED: ZITHROMAX500 MG PO (12:49)
--- NOTE | 2021-06-26 14:16 | NUR ---
Shweta was helped to the bathroom; she had been incontinent of urine. Changed her attends pull-up and her pants. Assisted to the wheelchair and transported by attendant from PCU 2. Home medications and belongings were sent with the patient.
== END 2021-06-26 13:59 | disposition home or self-care (01) | DRG 189 ==
LOC: ER 09:04 → ERHOLD 13:30 → PCU 15:00
PROVIDERS: Family Medicine; ADMIT Internal Medicine
PROC: 5A09357 Assistance with Respiratory Ventilation, Less than 24 Consecutive Hours, Continuous Positive Airway Pressure (ICD-10-PCS; principal; 2021-06-25)
DX: J96.21 Acute and chronic respiratory failure with hypoxia (principal); I50.32 Chronic diastolic (congestive) heart failure; Z68.42 Body mass index [BMI] 45.0-49.9, adult; J44.1 Chronic obstructive pulmonary disease with (acute) exacerbation; E66.01 Morbid (severe) obesity due to excess calories; Z20.822 Contact with and (suspected) exposure to COVID-19; J96.22 Acute and chronic respiratory failure with hypercapnia; I35.0 Nonrheumatic aortic (valve) stenosis; I11.0 Hypertensive heart disease with heart failure; E11.9 Type 2 diabetes mellitus without complications; F25.0 Schizoaffective disorder, bipolar type; E87.5 Hyperkalemia; F43.10 Post-traumatic stress disorder, unspecified; M19.90 Unspecified osteoarthritis, unspecified site; E78.5 Hyperlipidemia, unspecified; G47.33 Obstructive sleep apnea (adult) (pediatric); Z28.21 Immunization not carried out because of patient refusal; Z91.14 Patient's other noncompliance with medication regimen; Z99.81 Dependence on supplemental oxygen; Z99.89 Dependence on other enabling machines and devices; I25.2 Old myocardial infarction; Z90.49 Acquired absence of other specified parts of digestive tract; Z87.891 Personal history of nicotine dependence; Z88.2 Allergy status to sulfonamides; Z88.8 Allergy status to other drugs, medicaments and biological substances; Z91.040 Latex allergy status; Z79.2 Long term (current) use of antibiotics; Z79.82 Long term (current) use of aspirin; Z79.899 Other long term (current) drug therapy
CPT/HCPCS: 0241U; 36415; 71045; 80053; 80069; 80178; 81003; 82803; 82947; 83880; 84132; 84145; 84436; 84443; 85025; 93005; 93010; 93306; 94640; 94644; 94660; 94664; 94760; 94762; 96374; 96375; 99285-25; A9270; J1650; J1815; J1940; J2930; J7060

== ENCOUNTER 2021-06-29 19:19 | Inpatient (IN) | payer MEDICARE, OTHER ==
[~2021-06-29] VITALS: Ht 170.2 cm; Wt 116.6 kg
[~2021-06-29 19:19] MED LIST changes: +ACET500 PO; +ALMACONE SUSPE355 ML PO; +DIVA125 PO; +FLUT1DIS5 INH; +FURO20 PO; +Flonase 0.05% N16 GM; +HYDCOR2.5C TOP; +Haldol5 MG/1 ML PO; +L-Lysine500 M1 PO; +LISI20 PO; +MELATONIN5 M1 PO; +NYSTOP15 GM TOP; +POTA10T PO; +ZITHROMAX500 MG PO
[2021-06-29 21:02] LABS: BASOPHILS ABSOLUTE AUTO 0.04 K/mm3 (0.00-0.23); BASOPHILS PERCENT AUTO 0 % (0-2); EOSINOPHILS ABSOLUTE AUTO 0.02 K/mm3 (0.00-0.68); EOSINOPHILS PERCENT AUTO 0 % (0-6); Hematocrit 34.6 % (33.0-51.0); Hemoglobin 11.1 g/dL (11.5-16.0); IMMATURE GRAN ABSOLUTE AUTO 0.16 K/mm3 (0.00-0.10); IMMATURE GRAN PERCENT AUTO 1 % (0-1); LYMPHOCYTES ABSOLUTE AUTO 1.46 K/mm3 (0.84-5.20); LYMPHOCYTES PERCENT AUTO 8 % (21-46); MONOCYTES ABSOLUTE AUTO 1.22 K/mm3 (0.16-1.47); MONOCYTES PERCENT AUTO 6 % (4-13); Mean Corpuscular HGB 30.2 pg (26.0-34.0); Mean Corpuscular HGB Conc 32.1 g/dL (31.5-36.5); Mean Corpuscular Volume 94 fL (80-100); Mean Platelet Volume 9.8 fL (9.1-12.4); NEUTROPHILS ABSOLUTE AUTO 16.67 K/mm3 (1.96-9.15); NEUTROPHILS PERCENT AUTO 85 % (41-73); Platelet Count 231 K/mm3 (150-400); RDW Standard Deviation 44.4 fL (35.1-46.3); Red Blood Cell Count 3.68 M/mm3 (3.80-5.20); White Blood Cell Count 19.57 K/mm3 (4.00-11.30)
[2021-06-29 21:24] LABS: Influenza A, PCR NEGATIVE (NEGATIVE); Influenza B, PCR NEGATIVE (NEGATIVE); Resp Syncytial Virus, PCR NEGATIVE (NEGATIVE); SARS-Cov-2 (COVID-19) PCR, MMC NEGATIVE (NEGATIVE)
[2021-06-29 21:24] LABS: Albumin/Globulin Ratio 0.9 (0.8-1.8); Bilirubin, Total 0.3 mg/dL (0.1-1.0); Calcium, Blood 8.9 mg/dL (8.5-10.1); Creatinine, Blood 0.96 mg/dL (0.40-1.00); Globulin, Blood 3.5 g/dL (2.2-4.0); Potassium, Blood 4.4 mmol/L (3.5-5.5); Total Protein, Blood 6.5 g/dL (6.4-8.2)
[2021-06-29 22:07] LABS: Bicarbonate Venous 33.6 mmol/L (24.0-30.0); PCO2 Venous 49.2 mmHg (38-42); PO2 Venous 102 mmHg (38-42); pH Blood Venous 7.46 (7.34-7.37)
[2021-06-29 22:09] LABS: Base Excess Venous 11.2 mmol/L
[2021-06-29 23:37] LABS: Lithium 1.05 mmol/L (0.60-1.20)
--- NOTE | 2021-06-30 03:55 | NUR ---
ADMIT NOTE. PT ADMITTED TO 306 FROM ED AT 0010. PT ADMITTED FOR SEPSIS, PNA, AND COPD. HX OF OBESITY, COPD, CHF, AORTIC STENOSIS, HYPERTENSION, DIABETES, AND BIPOLAR/SCHIZOAFFECTIVE DISORDERS. PT LIVES AT [facility] IN [place]. PT IS CONFUSED AND MAKES STRANGE STATEMENTS. PT STS THAT HER NEIGHBOR SPITS TOBACCO INTO HER MOUTH BECAUSE SHE DOESN'T LIKE HER. PT IS UNABLE TO ANSWER ADMITTING QUESTIONS AT THIS TIME. R WRIST AND L FOREARM IV'S IN PLACE. PT HAS A WET COUGH AND IS WEAK AND SOMEWHAT LETHARGIC. PT UNABLE TO READJUST HER POSITION IN BED WITHOUT HELP. PT COMPLAINED OF NECK PAIN. SHE STS THAT HER NECK IS BROKEN. SHE THEN STS THAT IT HAPPENED WHEN SHE WAS 15. I TRIED TO MEDICATE HER WITH TYLENOL, BUT PT UNABLE TO SWALLOW THE PILLS. SHE SPIT THEM OUT AND IMMEDIATELY FELL BACK TO SLEEP. WILL TRY AGAIN TO MEDICATE IF IT BECOMES NECESSARY.
[2021-06-30 05:29] LABS: Hematocrit 35.6 % (33.0-51.0); Hemoglobin 10.9 g/dL (11.5-16.0); Mean Corpuscular HGB 29.2 pg (26.0-34.0); Mean Corpuscular HGB Conc 30.6 g/dL (31.5-36.5); Mean Corpuscular Volume 95 fL (80-100); Mean Platelet Volume 10.2 fL (9.1-12.4); Platelet Count 225 K/mm3 (150-400); RDW Standard Deviation 45.8 fL (35.1-46.3); Red Blood Cell Count 3.73 M/mm3 (3.80-5.20)
[2021-06-30 05:53] LABS: Anion Gap 2 mmol/L (6-16); Blood Urea Nitrogen 20 mg/dL (8-24); Bun/Creatinine Ratio 24.4 (12.0-20.0); CO2, Blood 34 mmol/L (21-32); Calcium, Blood 9.1 mg/dL (8.5-10.1); Chloride, Blood 103 mmol/L (98-108); Creatinine, Blood 0.82 mg/dL (0.40-1.00); Glomerular Filtration Rate >60 (60-); Glucose, Blood 143 mg/dL (70-99); Potassium, Blood 4.8 mmol/L (3.5-5.5); Sodium, Blood 139 mmol/L (136-145)
--- NOTE | 2021-06-30 15:54 | NUR ---
SHIFT SUMMARY THE PATIENT IS ALERT AND ORIENTED X3, PLEASANT AND COOPERATIVE WITH CARE. THE PATIENT IS ABLE TO MAKE NEEDS KNOWN. ALTHOUGH THE PATIENT WAS A BIT MORE CONFUSED AT THE START OF THE SHIFT. THE PATIENT IS CURRENTLY ON 2LPM OF 02 VIA NASAL CANNULA. INCONTINENT. THIS NURSE SPOKE WITH SHE WHERE THE PATIENT RESIDES. THE PATIENT USES A FWW WITH 2 ASSIST AT BASELINE. THE PATIENT WAS GIVEN PRN COUGH SYRUP X1 THIS SHIFT, IT HAS SINCE BEEN EFFECTIVE. MEDICATED WITH TYLENOL X1 FOR PAIN. TELE DC'D. NO ACUTE CHANGES THIS SHIFT. VSS. BED IN LOWEST POSITION. CALL LIGHT WITHIN REACH.
--- NOTE | 2021-07-01 05:07 | NUR ---
SHIFT SUMMARY: PT IS A/OX2-3. SHE HAS SOME WAXING/WANING WITH HER MENTATION THROUGHOUT THIS NOC SHIFT. SHE'S BEEN ON 2L OF O2. NO TELE. SHE IS A 2 PA MAX FOR REPOSITIONING, CHANGING, AND TRANSFERRING FROM BED TO CHAIR. HER RESIDENCE "[facility]" DID CALL FOR UPDATES THIS NOC SHIFT, BUT THE NURSE WAS UNABLE TO CALL IN TIME. THE PHONE NUMBER TO THE FACILITY WILL BE PASSED OFF TO THE DAYSHIFT NURSE. CALL LIGHT IS WITHIN REACH AND BED ALARM IS SET.
[2021-07-01 05:09] LABS: BASOPHILS ABSOLUTE AUTO 0.02 K/mm3 (0.00-0.23); BASOPHILS PERCENT AUTO 0 % (0-2); EOSINOPHILS PERCENT AUTO 0 % (0-6); Hematocrit 32.6 % (33.0-51.0); Hemoglobin 10.3 g/dL (11.5-16.0); IMMATURE GRAN ABSOLUTE AUTO 0.24 K/mm3 (0.00-0.10); IMMATURE GRAN PERCENT AUTO 1 % (0-1); LYMPHOCYTES ABSOLUTE AUTO 1.38 K/mm3 (0.84-5.20); LYMPHOCYTES PERCENT AUTO 7 % (21-46); MONOCYTES ABSOLUTE AUTO 0.31 K/mm3 (0.16-1.47); MONOCYTES PERCENT AUTO 2 % (4-13); Mean Corpuscular HGB 29.8 pg (26.0-34.0); Mean Corpuscular HGB Conc 31.6 g/dL (31.5-36.5); Mean Corpuscular Volume 94 fL (80-100); Mean Platelet Volume 10.5 fL (9.1-12.4); NEUTROPHILS ABSOLUTE AUTO 16.69 K/mm3 (1.96-9.15); NEUTROPHILS PERCENT AUTO 90 % (41-73); Platelet Count 216 K/mm3 (150-400); RDW Coefficient Variation 12.7 % (11.7-14.2); RDW Standard Deviation 43.9 fL (35.1-46.3); Red Blood Cell Count 3.46 M/mm3 (3.80-5.20); White Blood Cell Count 18.64 K/mm3 (4.00-11.30)
[2021-07-01 05:29] LABS: Anion Gap 4 mmol/L (6-16); Blood Urea Nitrogen 27 mg/dL (8-24); Bun/Creatinine Ratio 32.1 (12.0-20.0); CO2, Blood 32 mmol/L (21-32); Calcium, Blood 8.8 mg/dL (8.5-10.1); Chloride, Blood 102 mmol/L (98-108); Creatinine, Blood 0.84 mg/dL (0.40-1.00); Glomerular Filtration Rate >60 (60-); Glucose, Blood 177 mg/dL (70-99); Potassium, Blood 4.6 mmol/L (3.5-5.5); Sodium, Blood 138 mmol/L (136-145)
[2021-07-01 12:24] LABS: Base Excess Venous 5.3 mmol/L; Bicarbonate Venous 27.9 mmol/L (24.0-30.0); PCO2 Venous 57.7 mmHg (38-42); pH Blood Venous 7.34 (7.34-7.37)
[2021-07-01] MEDS ORDERED: ACET325 PO (14:11)
[2021-07-01] MEDS ORDERED: ALMACONE SUSPE355 ML PO (14:12)
[2021-07-01] MEDS ORDERED: BISA10S (14:12)
[2021-07-01] MEDS ORDERED: DICLOFENAC SOD100 GM TOP (14:16)
[2021-07-01] MEDS ORDERED: EUCERIN TOP (14:17)
[2021-07-01] MEDS ORDERED: Fleet Enema132 ML PR (14:18)
[2021-07-01] MEDS ORDERED: HALO5 PO (14:20)
[2021-07-01] MEDS ORDERED: LOPE2C PO (14:20)
[2021-07-01] MEDS ORDERED: POTA10T PO (14:21)
[2021-07-01] MEDS ORDERED: ONDA4ODT MM (14:21)
--- NOTE | 2021-07-01 14:34 | NUR ---
UPDATE GIVEN TO YAIMA JOHNSON AT [facility] WHERE PT RESIDES. RN REQUESTED MED RECONCILIATION BE COMPLETED AND FAXED MED LIST DUE TO US ONLY HAVING 2 PAGES ON CHART. MEDICATIONS UPDATED. DR. CHAVARRIA NOTIFIED OF CHANGE IN DEPAKOTE DOSE WE ARE GIVING. DR. CHAVARRIA ORDERED DEPAKOTE TO BE CHANGED FROM 500 MG PO QID TO TID GIVEN PER FACILITY EMAR. ORDER PROCESSED.
--- NOTE | 2021-07-01 18:50 | NUR ---
SHIFT SUMMARY: PT A/O X 3, ONE PERSON ASSIST WITH GAIT BELT AND WALKER FOR TX. PLEASANT AND COOPERATIVE WITH CARE. PT UP TO CHAIR FOR MEALS TODAY TOLERATED WELL, EATING WELL. OCCASIONAL WET COUGH WHICH WAS IMPROVED FROM YESTERDAY. PT IS ABLE TO COMMUNICATE CARE NEEDS AND IS ASKING APPROPRIATE FOLLOW-UP QUESTIONS REGARDING HER CURRENT ILLNESS AND FOLLOWING TREATMENT PLAN. NO ACUTE CONCERNS THIS SHIFT. PLAN IS FOR DC TOMORROW TO HER FACILITY SHE RESIDES IN.
[2021-07-02 05:11] LABS: BASOPHILS ABSOLUTE AUTO 0.02 K/mm3 (0.00-0.23); BASOPHILS PERCENT AUTO 0 % (0-2); EOSINOPHILS PERCENT AUTO 0 % (0-6); Hematocrit 32.7 % (33.0-51.0); Hemoglobin 10.4 g/dL (11.5-16.0); IMMATURE GRAN ABSOLUTE AUTO 0.28 K/mm3 (0.00-0.10); IMMATURE GRAN PERCENT AUTO 2 % (0-1); LYMPHOCYTES ABSOLUTE AUTO 1.05 K/mm3 (0.84-5.20); LYMPHOCYTES PERCENT AUTO 6 % (21-46); MONOCYTES ABSOLUTE AUTO 0.39 K/mm3 (0.16-1.47); MONOCYTES PERCENT AUTO 2 % (4-13); Mean Corpuscular HGB 29.7 pg (26.0-34.0); Mean Corpuscular HGB Conc 31.8 g/dL (31.5-36.5); Mean Corpuscular Volume 93 fL (80-100); Mean Platelet Volume 11.1 fL (9.1-12.4); NEUTROPHILS ABSOLUTE AUTO 15.92 K/mm3 (1.96-9.15); NEUTROPHILS PERCENT AUTO 90 % (41-73); Platelet Count 253 K/mm3 (150-400); RDW Coefficient Variation 12.6 % (11.7-14.2); RDW Standard Deviation 43.6 fL (35.1-46.3); White Blood Cell Count 17.66 K/mm3 (4.00-11.30)
--- NOTE | 2021-07-02 05:19 | NUR ---
SHIFT SUMMARY NO ACUTE CHANGES THIS SHIFT. AOX3, SLOW TO RESPOND. FORGETFUL. PLEASENT & COOPERATIVE. VSS. HR DEBBIE 49-58. SPO2 >90% ON 2L O2 (BASELINE). LS DIM c SCATTERED EXP WHEEZES. REPORTS SLIGHT DYSPNEA c MINIMAL ACTIVITY. RECIEVING BREATHING TX & SOLUMEDROL. HS CBG @156, NO COVERAGE PROVIDED. INCONT OF URINE, CHANGED PRN. PLAN TO POSSIBLY DC BACK TO [facility] TODAY PER REPORT. CALL LIGHT & BED ALARM IN PLACE.
[2021-07-02 05:30] LABS: Anion Gap 4 mmol/L (6-16); Blood Urea Nitrogen 31 mg/dL (8-24); Bun/Creatinine Ratio 33.5 (12.0-20.0); CO2, Blood 32 mmol/L (21-32); Calcium, Blood 8.8 mg/dL (8.5-10.1); Chloride, Blood 101 mmol/L (98-108); Creatinine, Blood 0.93 mg/dL (0.40-1.00); Glomerular Filtration Rate >60 (60-); Glucose, Blood 165 mg/dL (70-99); Potassium, Blood 4.8 mmol/L (3.5-5.5); Sodium, Blood 137 mmol/L (136-145)
--- NOTE | 2021-07-02 10:52 | NUR ---
THIS MORNING WHILE DISHING MEDICATION, I ASKED THIS PATIENT WHY SHE TAKES LYSINE DAILY. SHE STATES IT KEEPS HER GENITAL HERPES AWAY. SHE SAID "ITS NOT LIKE I'M OUT HAVING SEX WITH EVERYONE, BUT THEY COME AND HAVE SEX WITH ME WHILE I'M SLEEPING". I ASKED HER WHO SHE WAS TALKING ABOUT, AND SHE SAID AT NIGHT AT [facility], THEY GO OUTSIDE TO SMOKE AND DON'T LOCK THE DOOR, SO THEY JUST COME IN AND HAVE SEX'. I ALERTED DOMENIC, RN BAG TESTER WHO STATED TO TALK WITH [facility] STAFF. I SPOKE WITH YAIMA AT [facility], WHO STATES THAT THIS THOUGHT IS ONE OF HER MENTAL HEALTH SYMPTOMS AND IS NOT ACTUALLY HAPPENING. I FOLLOWED UP WITH DOMENIC ABOUT THE INFORMATION RECEIVED.
[2021-07-02] MEDS ORDERED: ALUM-MAG HYDROX30 ML PO (13:18)
[2021-07-02] MEDS ORDERED: FURO20 PO (13:43)
[2021-07-02] MEDS ORDERED: VISBIOME 112.51 EACH PO (14:03)
--- NOTE | 2021-07-02 15:32 | NUR ---
PATIENT WAS TO BE DISCHARGED AROUND 2PM, BACK TO [facility]. PATIENTS IV WAS REMOVED, SHE IS DRESSED AND READY TO GO. THE TRANASPORTATION COMPANY DID NOT BRING A WC, SO THE PATIENT WASN'T ABLE TO LEAVE AT THAT TIME. TRANSPORTATION WITH THE [facility] ([facility]) BEING ARRANGED. BECASUE THE IV WAS REMOVED, THE SOLUMEDERAL SCHEDULED FOR 4PM WILL NOT BE GIVEN IF THE PATIENT IS STILL HERE.
--- NOTE | 2021-07-02 17:17 | NUR ---
1704 PATIENT WAS DISCHARGED TO [facility] VIA TRANSPORTATION. SHE WAS ESCORTED OUT OF THE HOSPTIAL IN A WHEEL CHAIR BY THE ASSOCIATE MUSIC PROFESSOR. OXYGEN TANK AND PAPERWORK WERE PROVIDED TO THE ASSOCIATE MUSIC PROFESSOR TO ACCOMPANY PATIENT TO NEW FACILTIY. IV HAD BEEN REMOVED EARLIER, AND THE PATIENT WAS DRESSED AND READY TO GO WHEN TRANSPORT ARRIVED.
== END 2021-07-02 17:08 | disposition home or self-care (01) | DRG 871 ==
LOC: ER 19:19 → MEDS 23:45
PROVIDERS: Emergency Medicine; Family Medicine; Student in an Organized Health Care Education/Training Program; ADMIT Internal Medicine
DX: A41.9 Sepsis, unspecified organism (principal); J96.21 Acute and chronic respiratory failure with hypoxia; J96.22 Acute and chronic respiratory failure with hypercapnia; J18.9 Pneumonia, unspecified organism; G92.8 Other toxic encephalopathy; J44.1 Chronic obstructive pulmonary disease with (acute) exacerbation; J44.0 Chronic obstructive pulmonary disease with (acute) lower respiratory infection; I50.32 Chronic diastolic (congestive) heart failure; Z68.41 Body mass index [BMI] 40.0-44.9, adult; Z20.822 Contact with and (suspected) exposure to COVID-19; R65.20 Severe sepsis without septic shock; I11.0 Hypertensive heart disease with heart failure; E11.9 Type 2 diabetes mellitus without complications; E78.5 Hyperlipidemia, unspecified; E66.01 Morbid (severe) obesity due to excess calories; M19.90 Unspecified osteoarthritis, unspecified site; F25.9 Schizoaffective disorder, unspecified; F31.9 Bipolar disorder, unspecified; I35.0 Nonrheumatic aortic (valve) stenosis; I27.20 Pulmonary hypertension, unspecified; G47.33 Obstructive sleep apnea (adult) (pediatric); I25.2 Old myocardial infarction; F43.10 Post-traumatic stress disorder, unspecified; Z88.2 Allergy status to sulfonamides; Z88.8 Allergy status to other drugs, medicaments and biological substances; Z91.040 Latex allergy status; Z79.84 Long term (current) use of oral hypoglycemic drugs; Z79.899 Other long term (current) drug therapy; Z79.82 Long term (current) use of aspirin; Z90.49 Acquired absence of other specified parts of digestive tract; Z87.891 Personal history of nicotine dependence; Z99.81 Dependence on supplemental oxygen
CPT/HCPCS: 0241U; 36415; 71045; 80048; 80053; 80178; 82803; 82947; 83605; 83880; 84145; 85025; 85027; 87040; 93005; 93010; 94640; 94664; 94760; 96374; 96375; 99285-25; A9270; J0456; J0696; J1650; J2930; J7030; J7050; J7060

== ENCOUNTER → 2021-08-06 | Outpatient (CLI) | payer MEDICARE, OTHER ==
[~2021-08-06] MED LIST changes: +ACET325 PO; +BISA10S; +DICLOFENAC SOD100 GM TOP; +EUCERIN TOP; +Fleet Enema132 ML PR; +HALO5 PO; +ONDA4ODT MM; +VISBIOME 112.51 EACH PO
[2021-08-06 18:31] LABS: Source, Urine Clean Catch
[2021-08-06 18:47] LABS: Appearance, Urine Clear (Clear); Bilirubin, Urine Neg (Neg); Blood, Urine Neg (Neg); Glucose Qualitative, Urine Neg (Neg); Ketones, Urine Neg (Neg); Leukocyte Esterase, Urine Neg (Neg); Nitrite, Urine Neg (Neg); Protein, Urine Neg (Neg); Urobilinogen, Urine NORM (Normal); pH, Urine 6.5 (5.0-8.0)
[2021-08-06 18:52] LABS: Color, Urine Pale Yellow (P-Yellow)
== END | disposition home or self-care (01) ==
LOC: LAB SHORT 15:11
PROVIDERS: Physician Assistant
DX: N39.0 Urinary tract infection, site not specified (principal)
CPT/HCPCS: 81003

== ENCOUNTER → 2021-08-07 | Outpatient (CLI) | payer MEDICARE, OTHER ==
[2021-08-07 20:14] LABS: Anion Gap 9 mmol/L (6-16); Blood Urea Nitrogen 15 mg/dL (8-24); CO2, Blood 31 mmol/L (21-32); Calcium, Blood 9.3 mg/dL (8.5-10.1); Chloride, Blood 99 mmol/L (98-108); Glomerular Filtration Rate >60 (60-); Glucose, Blood 111 mg/dL (70-99); Potassium, Blood 4.7 mmol/L (3.5-5.5); Sodium, Blood 139 mmol/L (136-145)
== END | disposition home or self-care (01) ==
LOC: LAB SHORT 12:01
PROVIDERS: Physician Assistant
DX: E87.6 Hypokalemia (principal)
CPT/HCPCS: 80048

== ENCOUNTER → 2021-08-16 | Outpatient (CLI) | payer MEDICARE, OTHER ==
[2021-08-16 18:41] LABS: Source, Urine Voided
[2021-08-16 19:12] LABS: Appearance, Urine Clear (Clear); Bilirubin, Urine Neg (Neg); Blood, Urine Neg (Neg); Glucose Qualitative, Urine Neg (Neg); Ketones, Urine Neg (Neg); Leukocyte Esterase, Urine Neg (Neg); Nitrite, Urine Neg (Neg); Protein, Urine Neg (Neg); Specific Gravity, Urine 1.015 (1.003-1.022); Urobilinogen, Urine NORM (Normal)
[2021-08-16 19:25] LABS: Color, Urine Pale Yellow (P-Yellow)
== END | disposition home or self-care (01) ==
LOC: LAB SHORT 18:39
PROVIDERS: Physician Assistant
DX: R82.90 Unspecified abnormal findings in urine (principal)
CPT/HCPCS: 81003

== ENCOUNTER → 2021-09-04 | Outpatient (CLI) | payer MEDICARE, OTHER ==
[2021-09-04 12:07] LABS: Valproic Acid 84.9 ug/mL (50.0-100.0)
[2021-09-04 12:11] LABS: Lithium 0.43 mmol/L (0.60-1.20)
== END | disposition home or self-care (01) ==
LOC: LAB SHORT 09:44
PROVIDERS: Psychiatry & Neurology Psychiatry
DX: Z51.81 Encounter for therapeutic drug level monitoring (principal); Z79.899 Other long term (current) drug therapy
CPT/HCPCS: 80164; 80178

== ENCOUNTER → 2021-10-23 | Outpatient (CLI) | payer MEDICARE, OTHER ==
[2021-10-23 12:42] LABS: Lithium 0.37 mmol/L (0.60-1.20)
== END | disposition home or self-care (01) ==
LOC: LAB 08:34 → LAB SHORT 08:34
PROVIDERS: Psychiatry & Neurology Psychiatry
DX: Z51.81 Encounter for therapeutic drug level monitoring (principal)
CPT/HCPCS: 80164; 80178

== ENCOUNTER → 2021-11-13 | Outpatient (CLI) | payer MEDICARE, OTHER ==
[2021-11-13 11:35] LABS: Valproic Acid 57.2 ug/mL (50.0-100.0)
[2021-11-13 11:39] LABS: Lithium 0.34 mmol/L (0.60-1.20)
== END | disposition home or self-care (01) ==
LOC: LAB SHORT 07:15
PROVIDERS: Psychiatry & Neurology Psychiatry
DX: Z51.81 Encounter for therapeutic drug level monitoring (principal); Z79.899 Other long term (current) drug therapy
CPT/HCPCS: 80164; 80178

== ENCOUNTER → 2021-12-23 | Outpatient (CLI) | payer MEDICARE, OTHER ==
[2021-12-23 12:38] LABS: Lithium <0.20 mmol/L (0.60-1.20)
[2021-12-23 13:06] LABS: Valproic Acid 42.5 ug/mL (50.0-100.0)
== END ==
LOC: LAB SHORT 10:31
PROVIDERS: Psychiatry & Neurology Psychiatry
DX: Z51.81 Encounter for therapeutic drug level monitoring (principal)
CPT/HCPCS: 80164; 80178

== ENCOUNTER → 2022-01-22 | Outpatient (CLI) | payer MEDICARE, OTHER ==
[2022-01-22 13:50] LABS: Valproic Acid 37.4 ug/mL (50.0-100.0)
[2022-01-22 13:57] LABS: Lithium 0.29 mmol/L (0.60-1.20)
== END ==
LOC: LAB SHORT 08:35 → LAB 08:35
PROVIDERS: Psychiatry & Neurology Psychiatry
DX: Z51.81 Encounter for therapeutic drug level monitoring (principal)
CPT/HCPCS: 80164; 80178

== ENCOUNTER → 2022-02-12 | Outpatient (CLI) | payer MEDICARE, OTHER ==
[2022-02-12 12:32] LABS: Lithium 0.46 mmol/L (0.60-1.20)
[2022-02-12 12:36] LABS: Valproic Acid 41.3 ug/mL (50.0-100.0)
== END | disposition home or self-care (01) ==
LOC: LAB 10:26 → LAB SHORT 10:26
PROVIDERS: Psychiatry & Neurology Psychiatry
DX: Z51.81 Encounter for therapeutic drug level monitoring (principal); Z79.899 Other long term (current) drug therapy
CPT/HCPCS: 80164; 80178

== ENCOUNTER → 2022-03-19 | Outpatient (CLI) | payer MEDICARE, OTHER ==
[2022-03-19 12:24] LABS: Valproic Acid 36.4 ug/mL (50.0-100.0)
[2022-03-19 12:33] LABS: Lithium 0.53 mmol/L (0.60-1.20)
== END | disposition home or self-care (01) ==
LOC: LAB SHORT 10:06
PROVIDERS: Psychiatry & Neurology Psychiatry
DX: Z51.81 Encounter for therapeutic drug level monitoring (principal); Z79.899 Other long term (current) drug therapy
CPT/HCPCS: 80164; 80178

== ENCOUNTER → 2022-04-09 | Outpatient (CLI) | payer MEDICARE, OTHER ==
[2022-04-09 14:02] LABS: Lithium 0.55 mmol/L (0.60-1.20)
[2022-04-09 14:43] LABS: Valproic Acid 42.1 ug/mL (50.0-100.0)
== END | disposition home or self-care (01) ==
LOC: LAB SHORT 09:56
PROVIDERS: Psychiatry & Neurology Psychiatry
DX: Z51.81 Encounter for therapeutic drug level monitoring (principal); Z79.899 Other long term (current) drug therapy
CPT/HCPCS: 80164; 80178

== ENCOUNTER → 2022-05-07 | Outpatient (CLI) | payer MEDICARE, OTHER ==
[2022-05-07 12:51] LABS: Lithium 0.47 mmol/L (0.60-1.20)
== END | disposition home or self-care (01) ==
LOC: LAB SHORT 08:50
PROVIDERS: Psychiatry & Neurology Psychiatry
DX: Z51.81 Encounter for therapeutic drug level monitoring (principal)
CPT/HCPCS: 80164; 80178

== ENCOUNTER 2022-05-16 07:13 | Day surgery (SDC) | payer MEDICARE, OTHER ==
[~2022-05-16] VITALS: Ht 152.4 cm; Wt 130.0 kg
[~2022-05-16 07:13] MED LIST changes: +ALBU2.5V5 INH; -BISA10S
--- NOTE | 2022-05-16 08:00 | NUR ---
CAREGIVER, JARRETT, FROM PATIENT'S SN[facility] AT BEDSIDE.
--- NOTE | 2022-05-16 08:04 | NUR ---
EXPIRATORY WHEEZING AUSCULTATED T/O. PATIENT IN NO APPARENT RESP. DISTRESS. RESP EVEN AND UNLABORD. DENIES SOB. CAREGIVER AT BEDSIDE STATES THIS IS NORMAL FOR FELIBERTO TO HAVE WHEEZING.
[2022-05-16] MEDS ORDERED: 1/2 NS 250ml250 ML (08:18)
[2022-05-16] MEDS ORDERED: ACET500 PO (08:19)
[2022-05-16] MEDS ORDERED: ATOR40TA PO (08:20)
[2022-05-16] MEDS ORDERED: FLUT1DIS5 INH (08:20)
[2022-05-16] MEDS ORDERED: Calcium Carbon500 MG PO (08:22)
[2022-05-16] MEDS ORDERED: FURO40 PO (08:23)
[2022-05-16] MEDS ORDERED: L-LYSINE500 M1 PO (08:23)
[2022-05-16] MEDS ORDERED: DIVA125EC PO (08:23)
[2022-05-16] MEDS ORDERED: PALI3TAB PO (08:24)
[2022-05-16] MEDS ORDERED: LITH300C PO (08:24)
[2022-05-16] MEDS ORDERED: SENNA LAXATIVE8.6 MG PO (08:25)
[2022-05-16] MEDS ORDERED: MULTIPLE VITAM1 EACH PO (08:25)
[2022-05-16] MEDS ORDERED: POTA10T PO (08:25)
--- NOTE | 2022-05-16 09:02 | NUR ---
05/16/22 0902 Ruthie Mohan History, Chart, Medications and Allergies reviewed before start of procedure. MONITOR INTACT WITH CONTINUOUS PULSE OXIMETRY AND INTERMITTENT BP. 3-LEAD EKG REVIEWED WITH PHYSICIAN PRIOR TO START OF PROCEDURE. O2 VIA POM INTACT THROUGHOUT SEDATION/PROCEDURE. See Anesthesia record FROM DR. ALAMO. BREATHING TREATMENT GIVEN PRIOR TO PROCEDURE.
== END 2022-05-17 22:49 | disposition home or self-care (01) ==
LOC: ORSCMMR 07:13 → ORD 08:30 → ORSCMMR 08:45
PROVIDERS: Internal Medicine Gastroenterology
PROC: 0DBP8ZX Excision of Rectum, Via Natural or Artificial Opening Endoscopic, Diagnostic (ICD-10-PCS; principal; 2022-05-16 08:45)
PROC: 0DBK8ZX Excision of Ascending Colon, Via Natural or Artificial Opening Endoscopic, Diagnostic (ICD-10-PCS; principal; 2022-05-16 08:45)
PROC: 0DBM8ZX Excision of Descending Colon, Via Natural or Artificial Opening Endoscopic, Diagnostic (ICD-10-PCS; principal; 2022-05-16 08:45)
PROC: 0DBH8ZX Excision of Cecum, Via Natural or Artificial Opening Endoscopic, Diagnostic (ICD-10-PCS; principal; 2022-05-16 08:45)
DX: Z12.11 Encounter for screening for malignant neoplasm of colon (principal); Z86.010 Personal history of colon polyps; D12.0 Benign neoplasm of cecum; D12.4 Benign neoplasm of descending colon; K63.89 Other specified diseases of intestine; I10 Essential (primary) hypertension; E11.9 Type 2 diabetes mellitus without complications; J44.9 Chronic obstructive pulmonary disease, unspecified; I25.2 Old myocardial infarction; E66.01 Morbid (severe) obesity due to excess calories; Z68.43 Body mass index [BMI] 50.0-59.9, adult; F43.10 Post-traumatic stress disorder, unspecified; Z79.84 Long term (current) use of oral hypoglycemic drugs; Z79.899 Other long term (current) drug therapy; Z79.82 Long term (current) use of aspirin
CPT/HCPCS: 82947; 88305; J2405; J2704; J7120

== ENCOUNTER → 2022-05-26 | Outpatient (CLI) | payer MEDICARE, OTHER ==
[~2022-05-26] MED LIST changes: +1/2 NS 250ml250 ML; +ATOR40TA PO; +Calcium Carbon500 MG PO; +DIVA125EC PO; +FURO40 PO; +L-LYSINE500 M1 PO; +LITH300C PO; +MULTIPLE VITAM1 EACH PO; +SENNA LAXATIVE8.6 MG PO
[2022-05-26 18:06] LABS: Source, Urine Clean Catch
[2022-05-26 19:10] LABS: Appearance, Urine Hazy (Clear); Bilirubin, Urine Neg (Neg); Blood, Urine 1+ (Neg); Color, Urine Yellow (P-Yellow); Glucose Qualitative, Urine Neg (Neg); Ketones, Urine Neg (Neg); Leukocyte Esterase, Urine 3+ (Neg); Nitrite, Urine Pos (Neg); Protein, Urine 1+ (Neg); Urobilinogen, Urine NORM (Normal)
[2022-05-26 19:21] LABS: Bacteria Many /hpf; Red Blood Cells, Urine 0-2 /hpf (0-2); Squamous Epithelial Cells Rare /hpf (Few)
== END | disposition home or self-care (01) ==
LOC: LAB SHORT 18:04
PROVIDERS: Physician Assistant
DX: N39.0 Urinary tract infection, site not specified (principal)
CPT/HCPCS: 81001; 87077; 87086; 87186

== ENCOUNTER → 2022-07-31 | Outpatient (CLI) | payer MEDICARE, OTHER ==
[~2022-07-31] MED LIST changes: +HYDCOR2.5C; +KETO15TC TOP; +METO25ER PO; +OZEMPIC0.25 MG/0.; +Prinivil10 MG PO; +SYMBICORT 16010.2 GM
[2022-07-31 18:17] LABS: Source, Urine Clean Catch
[2022-07-31 19:03] LABS: Appearance, Urine Clear (Clear); Bilirubin, Urine Neg (Neg); Blood, Urine Neg (Neg); Color, Urine Yellow (P-Yellow); Glucose Qualitative, Urine Neg (Neg); Ketones, Urine Neg (Neg); Leukocyte Esterase, Urine Neg (Neg); Nitrite, Urine Neg (Neg); Protein, Urine Neg (Neg); Specific Gravity, Urine 1.005 (1.003-1.022); Urobilinogen, Urine NORM (Normal); pH, Urine 6.5 (5.0-8.0)
== END | disposition home or self-care (01) ==
LOC: LAB 10:30 → LAB SHORT 10:30
PROVIDERS: Physician Assistant
DX: N39.0 Urinary tract infection, site not specified (principal)
CPT/HCPCS: 81003

== ENCOUNTER 2022-08-03 11:35 | Emergency (ER) | payer MEDICARE, OTHER ==
[~2022-08-03] VITALS: Ht 157.5 cm; Wt 158.8 kg
[~2022-08-03 11:35] MED LIST changes: -HYDCOR2.5C; -KETO15TC TOP; -METO25ER PO; -OZEMPIC0.25 MG/0.; -Prinivil10 MG PO; -SYMBICORT 16010.2 GM
[2022-08-03 12:19] LABS: Albumin, Blood 3.2 g/dL (3.4-5.0); Albumin/Globulin Ratio 0.9 (0.8-1.8); Bilirubin, Total 0.2 mg/dL (0.1-1.0); Bun/Creatinine Ratio 23.2 (12.0-20.0); Calcium, Blood 8.9 mg/dL (8.5-10.1); Creatinine, Blood 0.95 mg/dL (0.40-1.00); Globulin, Blood 3.5 g/dL (2.2-4.0); Potassium, Blood 4.8 mmol/L (3.5-5.5); Total Protein, Blood 6.7 g/dL (6.4-8.2)
[2022-08-03 12:41] LABS: BASOPHILS ABSOLUTE AUTO 0.06 K/mm3 (0.00-0.23); BASOPHILS PERCENT AUTO 0 % (0-2); EOSINOPHILS ABSOLUTE AUTO 0.26 K/mm3 (0.00-0.68); EOSINOPHILS PERCENT AUTO 1 % (0-6); Hematocrit 32.8 % (33.0-51.0); Hemoglobin 10.2 g/dL (11.5-16.0); IMMATURE GRAN ABSOLUTE AUTO 0.12 K/mm3 (0.00-0.10); IMMATURE GRAN PERCENT AUTO 1 % (0-1); LYMPHOCYTES ABSOLUTE AUTO 2.24 K/mm3 (0.84-5.20); LYMPHOCYTES PERCENT AUTO 13 % (21-46); MONOCYTES ABSOLUTE AUTO 1.16 K/mm3 (0.16-1.47); MONOCYTES PERCENT AUTO 7 % (4-13); Mean Corpuscular HGB 28.6 pg (26.0-34.0); Mean Corpuscular HGB Conc 31.1 g/dL (31.5-36.5); Mean Corpuscular Volume 92 fL (80-100); Mean Platelet Volume 10.4 fL (9.1-12.4); NEUTROPHILS ABSOLUTE AUTO 14.14 K/mm3 (1.96-9.15); NEUTROPHILS PERCENT AUTO 79 % (41-73); Platelet Count 264 K/mm3 (150-400); RDW Coefficient Variation 15.1 % (11.7-14.2); RDW Standard Deviation 51.1 fL (35.1-46.3); Red Blood Cell Count 3.57 M/mm3 (3.80-5.20); White Blood Cell Count 17.98 K/mm3 (4.00-11.30)
[2022-08-03 15:29] LABS: Source, Urine Straight Cath
[2022-08-03 15:31] LABS: Appearance, Urine Clear (Clear); Bilirubin, Urine Neg (Neg); Blood, Urine Neg (Neg); Color, Urine Yellow (P-Yellow); Glucose Qualitative, Urine Neg (Neg); Ketones, Urine Neg (Neg); Leukocyte Esterase, Urine Neg (Neg); Nitrite, Urine Neg (Neg); Protein, Urine Neg (Neg); Urobilinogen, Urine NORM (Normal)
[2022-08-03] MEDS ORDERED: HYDCOR2.5C (16:28)
[2022-08-03] MEDS ORDERED: KETO15TC TOP (16:29)
[2022-08-03] MEDS ORDERED: Prinivil10 MG PO (16:29)
[2022-08-03] MEDS ORDERED: METO25ER PO (16:30)
[2022-08-03] MEDS ORDERED: OZEMPIC0.25 MG/0. (16:31)
[2022-08-03] MEDS ORDERED: SYMBICORT 16010.2 GM (16:32)
[2022-08-03 18:09] VITALS: BP 127/72
== END 2022-08-03 19:21 | disposition home or self-care (01) ==
LOC: ER 11:35
PROVIDERS: Student in an Organized Health Care Education/Training Program
DX: R60.0 Localized edema (principal); D72.829 Elevated white blood cell count, unspecified; I25.2 Old myocardial infarction; I11.0 Hypertensive heart disease with heart failure; I50.32 Chronic diastolic (congestive) heart failure; G47.33 Obstructive sleep apnea (adult) (pediatric); E78.5 Hyperlipidemia, unspecified; E11.9 Type 2 diabetes mellitus without complications; J44.9 Chronic obstructive pulmonary disease, unspecified; Z88.2 Allergy status to sulfonamides; Z88.1 Allergy status to other antibiotic agents; Z91.040 Latex allergy status; Z88.5 Allergy status to narcotic agent; Z88.6 Allergy status to analgesic agent; Z91.048 Other nonmedicinal substance allergy status; Z79.899 Other long term (current) drug therapy; Z87.891 Personal history of nicotine dependence
CPT/HCPCS: 36415; 51701; 71046; 80053; 81003; 83605; 83880; 85025; 93005; 93010; 93970; A9270; J7030

== ENCOUNTER → 2022-08-13 | Outpatient (CLI) | payer MEDICARE, OTHER ==
[~2022-08-13] MED LIST changes: +HYDCOR2.5C; +KETO15TC TOP; +METO25ER PO; +OZEMPIC0.25 MG/0.; +Prinivil10 MG PO; +SYMBICORT 16010.2 GM
[2022-08-13 12:55] LABS: Anion Gap 2 mmol/L (6-16); Blood Urea Nitrogen 24 mg/dL (8-24); Bun/Creatinine Ratio 27.9 (12.0-20.0); CO2, Blood 31 mmol/L (21-32); Chloride, Blood 103 mmol/L (98-108); Creatinine, Blood 0.86 mg/dL (0.40-1.00); Glomerular Filtration Rate 74 (60-); Glucose, Blood 136 mg/dL (70-99); Potassium, Blood 4.7 mmol/L (3.5-5.5); Sodium, Blood 136 mmol/L (136-145); Valproic Acid 32.9 ug/mL (50.0-100.0)
== END | disposition home or self-care (01) ==
LOC: LAB 09:45 → LAB SHORT 09:45
PROVIDERS: Psychiatry & Neurology Psychiatry
DX: Z51.81 Encounter for therapeutic drug level monitoring (principal); F25.0 Schizoaffective disorder, bipolar type; I11.0 Hypertensive heart disease with heart failure; I50.9 Heart failure, unspecified; Z79.899 Other long term (current) drug therapy
CPT/HCPCS: 80048; 80164; 80178

== ENCOUNTER → 2022-09-05 | Outpatient (CLI) | payer MEDICARE, OTHER | END | disposition home or self-care (01) | LOC: LAB 10:05 → LAB SHORT 10:05 | PROVIDERS: Psychiatry & Neurology Psychiatry | DX: F25.0 Schizoaffective disorder, bipolar type (principal) | CPT/HCPCS: 80178 ==

== ENCOUNTER → 2022-09-23 | Outpatient (CLI) | payer MEDICARE, OTHER ==
[2022-09-23 15:41] LABS: Appearance, Urine Clear (Clear); Bilirubin, Urine Neg (Neg); Blood, Urine Neg (Neg); Color, Urine Yellow (P-Yellow); Glucose Qualitative, Urine Neg (Neg); Ketones, Urine Neg (Neg); Leukocyte Esterase, Urine Neg (Neg); Nitrite, Urine Neg (Neg); Protein, Urine 2+ (Neg); Urobilinogen, Urine NORM (Normal)
[2022-09-23 15:55] LABS: Bacteria Few /hpf; Red Blood Cells, Urine 0-2 /hpf (0-2); Squamous Epithelial Cells Few /hpf (Few); White Blood Cells, Urine 0-2 /hpf (0-5)
== END ==
LOC: LAB 15:00 → LAB SHORT 15:00
PROVIDERS: Physician Assistant
DX: N39.0 Urinary tract infection, site not specified (principal)
CPT/HCPCS: 81001

== ENCOUNTER 2022-11-05 22:15 | Emergency (ER) | payer MEDICARE, OTHER ==
[~2022-11-05] VITALS: Ht 152.4 cm; Wt 136.1 kg
[2022-11-05] MEDS ORDERED: Aspir 8181 MG PO (22:30)
[2022-11-05] MEDS ORDERED: BUPRENORPHINE1 EAC9 TD (22:31)
[2022-11-05] MEDS ORDERED: FERSU300 PO (22:33)
[2022-11-05] MEDS ORDERED: TORSE20 PO (22:34)
[2022-11-05 23:40] LABS: BASOPHILS ABSOLUTE AUTO 0.04 K/mm3 (0.00-0.23); BASOPHILS PERCENT AUTO 0 % (0-2); EOSINOPHILS ABSOLUTE AUTO 0.27 K/mm3 (0.00-0.68); EOSINOPHILS PERCENT AUTO 2 % (0-6); Hematocrit 31.9 % (33.0-51.0); Hemoglobin 9.9 g/dL (11.5-16.0); IMMATURE GRAN ABSOLUTE AUTO 0.08 K/mm3 (0.00-0.10); IMMATURE GRAN PERCENT AUTO 1 % (0-1); LYMPHOCYTES ABSOLUTE AUTO 2.58 K/mm3 (0.84-5.20); LYMPHOCYTES PERCENT AUTO 23 % (21-46); MONOCYTES ABSOLUTE AUTO 0.57 K/mm3 (0.16-1.47); MONOCYTES PERCENT AUTO 5 % (4-13); Mean Corpuscular HGB 29.6 pg (26.0-34.0); Mean Corpuscular Volume 95 fL (80-100); Mean Platelet Volume 10.3 fL (9.1-12.4); NEUTROPHILS ABSOLUTE AUTO 7.83 K/mm3 (1.96-9.15); NEUTROPHILS PERCENT AUTO 69 % (41-73); Platelet Count 220 K/mm3 (150-400); RDW Coefficient Variation 13.4 % (11.7-14.2); RDW Standard Deviation 47.3 fL (35.1-46.3); Red Blood Cell Count 3.35 M/mm3 (3.80-5.20); White Blood Cell Count 11.37 K/mm3 (4.00-11.30)
[2022-11-05 23:59] LABS: Albumin/Globulin Ratio 0.9 (0.8-1.8); Bilirubin, Total 0.2 mg/dL (0.1-1.0); Bun/Creatinine Ratio 35.4 (12.0-20.0); Calcium, Blood 8.2 mg/dL (8.5-10.1); Creatinine, Blood 0.85 mg/dL (0.40-1.00); Globulin, Blood 3.4 g/dL (2.2-4.0); Total Protein, Blood 6.4 g/dL (6.4-8.2)
[2022-11-06 00:08] LABS: Base Excess Venous 8.5 mmol/L; Bicarbonate Venous 30.9 mmol/L (24.0-30.0); PCO2 Venous 60.9 mmHg (38-42); pH Blood Venous 7.36 (7.34-7.37)
[2022-11-06 02:15] VITALS: BP 116/57
[2022-11-06] MEDS ORDERED: HYDHCL25 PO (02:18)
[2022-11-06] MEDS ORDERED: AERONEB GO1 EACH INH (02:18)
[2022-11-06] MEDS ORDERED: PRED20 PO (02:18)
== END 2022-11-06 03:05 | disposition home or self-care (01) ==
LOC: ER 22:15
PROVIDERS: Student in an Organized Health Care Education/Training Program
DX: J44.1 Chronic obstructive pulmonary disease with (acute) exacerbation (principal); Z88.8 Allergy status to other drugs, medicaments and biological substances; Z88.2 Allergy status to sulfonamides; Z91.040 Latex allergy status; Z79.899 Other long term (current) drug therapy; Z87.891 Personal history of nicotine dependence; E11.9 Type 2 diabetes mellitus without complications; G47.33 Obstructive sleep apnea (adult) (pediatric); I11.0 Hypertensive heart disease with heart failure; I50.32 Chronic diastolic (congestive) heart failure; F43.10 Post-traumatic stress disorder, unspecified; M19.90 Unspecified osteoarthritis, unspecified site
CPT/HCPCS: 71046; 80053; 82803; 83880; 84484; 85025; 93005; 93010; 94640; 94664; 99285-25; A9270; J7512

== ENCOUNTER 2022-11-13 11:11 | Emergency (ER) | payer MEDICARE, OTHER ==
[~2022-11-13] VITALS: Ht 177.8 cm; Wt 117.9 kg
[~2022-11-13 11:11] MED LIST changes: +AERONEB GO1 EACH INH; +Aspir 8181 MG PO; +BUPRENORPHINE1 EAC9 TD; +HYDHCL25 PO; +PRED20 PO; +TORSE20 PO
[2022-11-13] MEDS ORDERED: LIDO700A20 TOP (11:28)
[2022-11-13 14:30] VITALS: BP 105/81
[2022-11-13] MEDS ORDERED: FAMO20 PO (14:58)
[2022-11-13] MEDS ORDERED: CEPH500 PO (14:58)
== END 2022-11-13 16:37 | disposition home or self-care (01) ==
LOC: ER 11:11
DX: L03.221 Cellulitis of neck (principal); M54.2 Cervicalgia; G89.29 Other chronic pain; Z88.2 Allergy status to sulfonamides; Z88.8 Allergy status to other drugs, medicaments and biological substances; Z91.040 Latex allergy status; Z79.899 Other long term (current) drug therapy; Z79.82 Long term (current) use of aspirin; Z87.891 Personal history of nicotine dependence; E11.9 Type 2 diabetes mellitus without complications; I50.32 Chronic diastolic (congestive) heart failure; G47.33 Obstructive sleep apnea (adult) (pediatric); I10 Essential (primary) hypertension; F43.10 Post-traumatic stress disorder, unspecified; M19.90 Unspecified osteoarthritis, unspecified site
CPT/HCPCS: 70491; 76536; 99283-25; A9270; Q9967

== ENCOUNTER 2022-12-12 15:58 | Inpatient (IN) | payer MEDICARE, OTHER ==
[~2022-12-12] VITALS: Ht 162.6 cm; Wt 138.0 kg
[~2022-12-12 15:58] MED LIST changes: +FAMO20 PO; -HYDCOR2.5C; +LIDO700A20 TOP
[2022-12-12 17:24] LABS: Source, Urine Fem Cath
[2022-12-12 17:55] LABS: Base Excess Venous 10.5 mmol/L; Bicarbonate Venous 32.5 mmol/L (24.0-30.0); pH Blood Venous 7.36 (7.34-7.37)
[2022-12-12 17:57] LABS: BASOPHILS ABSOLUTE AUTO 0.04 K/mm3 (0.00-0.23); BASOPHILS PERCENT AUTO 0 % (0-2); EOSINOPHILS ABSOLUTE AUTO 0.21 K/mm3 (0.00-0.68); EOSINOPHILS PERCENT AUTO 1 % (0-6); Hematocrit 33.3 % (33.0-51.0); Hemoglobin 10.3 g/dL (11.5-16.0); IMMATURE GRAN ABSOLUTE AUTO 0.14 K/mm3 (0.00-0.10); IMMATURE GRAN PERCENT AUTO 1 % (0-1); LYMPHOCYTES ABSOLUTE AUTO 1.77 K/mm3 (0.84-5.20); LYMPHOCYTES PERCENT AUTO 12 % (21-46); MONOCYTES ABSOLUTE AUTO 0.73 K/mm3 (0.16-1.47); MONOCYTES PERCENT AUTO 5 % (4-13); Mean Corpuscular HGB 28.5 pg (26.0-34.0); Mean Corpuscular HGB Conc 30.9 g/dL (31.5-36.5); Mean Corpuscular Volume 92 fL (80-100); Mean Platelet Volume 10.1 fL (9.1-12.4); NEUTROPHILS PERCENT AUTO 81 % (41-73); Platelet Count 286 K/mm3 (150-400); RDW Coefficient Variation 13.8 % (11.7-14.2); RDW Standard Deviation 46.7 fL (35.1-46.3); Red Blood Cell Count 3.62 M/mm3 (3.80-5.20); White Blood Cell Count 15.19 K/mm3 (4.00-11.30)
[2022-12-12 18:03] LABS: Appearance, Urine Clear (Clear); Bilirubin, Urine Neg (Neg); Blood, Urine Neg (Neg); Glucose Qualitative, Urine Neg (Neg); Ketones, Urine Neg (Neg); Leukocyte Esterase, Urine Neg (Neg); Nitrite, Urine Neg (Neg); Protein, Urine Neg (Neg); Urobilinogen, Urine NORM (Normal)
[2022-12-12 18:24] LABS: Valproic Acid 53.8 ug/mL (50.0-100.0)
[2022-12-12 18:40] LABS: Color, Urine Pale Yellow (P-Yellow)
[2022-12-12 18:41] LABS: Albumin, Blood 3.2 g/dL (3.4-5.0); Albumin/Globulin Ratio 1.1 (0.8-1.8); Bilirubin, Total 0.3 mg/dL (0.1-1.0); Bun/Creatinine Ratio 31.5 (12.0-20.0); Calcium, Blood 9.2 mg/dL (8.5-10.1); Creatinine, Blood 1.08 mg/dL (0.40-1.00); Potassium, Blood 6.5 mmol/L (3.5-5.5); Total Protein, Blood 6.2 g/dL (6.4-8.2)
[2022-12-12 18:44] LABS: Lithium 1.02 mmol/L (0.60-1.20)
[2022-12-12 22:35] LABS: Base Excess Venous 10.8 mmol/L; Bicarbonate Venous 32.9 mmol/L (24.0-30.0); PCO2 Venous 54.3 mmHg (38-42); pH Blood Venous 7.42 (7.34-7.37)
[2022-12-12 23:05] LABS: Bun/Creatinine Ratio 31.5 (12.0-20.0); Calcium, Blood 9.2 mg/dL (8.5-10.1); Creatinine, Blood 0.92 mg/dL (0.40-1.00); Potassium, Blood 5.9 mmol/L (3.5-5.5)
[2022-12-12 23:30] VITALS: BP 130/89
[2022-12-12] MEDS ORDERED: BREZTRI AEROS10.7 GM INH (23:32)
[2022-12-12] MEDS ORDERED: BUTRANS1 EAC6 TD (23:35)
[2022-12-12] MEDS ORDERED: DULO30 PO (23:37)
[2022-12-12] MEDS ORDERED: L-Lysine500 M1 PO (23:38)
[2022-12-12] MEDS ORDERED: METO25 PO (23:40)
[2022-12-12] MEDS ORDERED: OZEMPIC2 MG/0.75 SC (23:41)
[2022-12-12] MEDS ORDERED: MELA3 PO (23:43)
[2022-12-13 04:00] VITALS: BP 125/51
[2022-12-13 04:05] LABS: Base Excess Venous 11.3 mmol/L; pH Blood Venous 7.51 (7.34-7.37)
[2022-12-13 04:54] LABS: BASOPHILS ABSOLUTE AUTO 0.06 K/mm3 (0.00-0.23); BASOPHILS PERCENT AUTO 0 % (0-2); EOSINOPHILS ABSOLUTE AUTO 0.13 K/mm3 (0.00-0.68); EOSINOPHILS PERCENT AUTO 1 % (0-6); Hematocrit 32.7 % (33.0-51.0); Hemoglobin 10.2 g/dL (11.5-16.0); IMMATURE GRAN PERCENT AUTO 1 % (0-1); LYMPHOCYTES ABSOLUTE AUTO 1.83 K/mm3 (0.84-5.20); LYMPHOCYTES PERCENT AUTO 14 % (21-46); MONOCYTES ABSOLUTE AUTO 0.78 K/mm3 (0.16-1.47); MONOCYTES PERCENT AUTO 6 % (4-13); Mean Corpuscular HGB 28.7 pg (26.0-34.0); Mean Corpuscular HGB Conc 31.2 g/dL (31.5-36.5); Mean Corpuscular Volume 92 fL (80-100); Mean Platelet Volume 10.2 fL (9.1-12.4); NEUTROPHILS ABSOLUTE AUTO 10.67 K/mm3 (1.96-9.15); NEUTROPHILS PERCENT AUTO 79 % (41-73); Platelet Count 265 K/mm3 (150-400); RDW Coefficient Variation 13.6 % (11.7-14.2); RDW Standard Deviation 45.9 fL (35.1-46.3); Red Blood Cell Count 3.56 M/mm3 (3.80-5.20); White Blood Cell Count 13.57 K/mm3 (4.00-11.30)
[2022-12-13 05:19] LABS: Bun/Creatinine Ratio 29.6 (12.0-20.0); Creatinine, Blood 0.84 mg/dL (0.40-1.00); Potassium, Blood 5.4 mmol/L (3.5-5.5)
--- NOTE | 2022-12-13 05:25 | NUR ---
ASSUMPTION OF CARE NOTE AND SHIFT SUMMARY PT ARRIVED TO PCU AT 2315, PT TRANSFERRED W/MAX ASSIST AND SLIDE SHEET. PT A&O X1-2. UNABLE TO IDENITFY ANYTHING OTHER THAN SELF/PERSON AND THAT IT IS "". PT RESPONSES NOT APPROPRIATE OR COHERENT TO QUESTIONS BEING ASKED. VSS. PT ARRIVED ON O2 VIA NC, SPO2 97%. DOES NOT APPEAR TO BE IN DISTRESS. RT AT BEDSIDE TO SET UP BIPAP. PUREWICK IN PLACE UPON TRANSFER, BUT PT SOILED W/URINE. PT CHANGED AND CLEANED UP. PUREWICK REPLACED. PT WEAK AND HAVING WHAT APPEARS TO BE SPASMS OR JERKING IN UE. PT ORIENTED TO ROOM AND CALL LIGHT IN REACH. NO CHANGES TO NEURO THROUGHOUT SHIFT. PT REMAINS ON BIPAP, SPO2 88 - 96%. PT TOLERATING BIPAP WELL. PT LS REMAIN WHEEZY/MOIST. VSS; HR SR/ST 90 - 100'S. PT ATTEMPTED TO USE BEDPAN, NO BM. PUREWICK IN PLACE; 500 MLS OUT THIS SHIFT. PT CURRENTLY RESTING. CALL LIGHT IN REACH. WILL UPDATE ONCOMING RN.
[2022-12-13 07:29] VITALS: BP 109/86
--- NOTE | 2022-12-13 11:45 | NUR ---
AM NOTES: PT ALERT AND ORIENTED TO SELF AND PERSON ONLY, HX SCHIZOAFFECTIVE DISORDER, HAS FLIGHT OF IDEAS, HALLUCINATIONS, GETS IRRITATED EASILY, EASILY REDIRECTABLE. PT HAS BEEN OFF OF BIPAP TOLERATING 3L OF O2, SATS ABOVE 90% SOB NOTED UPON EXERTION AND MILD WHEEZING. PT ABLE TO STAND AND TRANSFER TO [facility] AND RECLINER VIA FWW AND GAITBELT 1-2PA PT WITH OVERALL WEAKNESS AND TREMORS. PT STARTED ON A DIET, TOLERATED WELL. PT HAS BASELINE TREMORS PER SHE NURSE THIS HAS GRADUALLY WORSEN OVER THE WEEK, PT UNABLE TO HOLD UTENSILS STILL SPILLING DRINKS ALL OVER. PT/OT TO EVAL PT. PT TRANSITIONED TO MED NO TELE. THE REST OF THE VITALS HAS BEEN STABLE. PT MEDICATED WITH TYLENOL FOR HEADACHE. CURRENTLY UP IN THE RECLINER, AWAITING FOR LUNCH, WILL CONTINUE TO MONITOR
[2022-12-13 12:28] VITALS: BP 138/77
[2022-12-13 12:54] LABS: Bun/Creatinine Ratio 24.9 (12.0-20.0); Creatinine, Blood 0.84 mg/dL (0.40-1.00); Potassium, Blood 5.3 mmol/L (3.5-5.5)
--- NOTE | 2022-12-13 14:36 | NUR ---
REPORT GIVEN TO CRYSTAL JOHNSON, PT TRANSFERRED TO RM 346 ALL BELONGINGS SENT WITH THE PT
[2022-12-13 15:33] VITALS: BP 140/59
--- NOTE | 2022-12-13 18:16 | NUR ---
PT TRANSFER FROM [facility] TO [facility] FLOOR; ARRIVED AT 1400; ASSUMED CARE. PT IS ALERT. ABLE TO FOLLOW DIRECTIONS. PT SEEING THINGS THAT ARE NOT REAL. PT WILL CALL OUT FOR HELP BUT NOT USING THE CALL LIGHT. PT ON 3L O2 NC (THIS IS BASELINE AT HOME). CONT PULSE OX. PT WILL DESAT WITH ACTIVITY. PT INCONT OF BOWEL/BLADDER. PT UNSURE IF SHE CAN WALK OR TRANSFER TO A BSC. PUREWICK IN PLACE. PT TO HAVE PT/OT EVAL. VISIBLE TREMORS AT REST.
[2022-12-13 20:29] VITALS: BP 151/71
[2022-12-14 01:41] VITALS: BP 141/62
--- NOTE | 2022-12-14 04:56 | NUR ---
SHIFT SUMMARY PT HALLUCINATING T/O SHIFT. PT SEEING CATS AND BUGS IN ROOM THAT ARE NOT THERE. PT ON BASELINE O2 OF 3L T/O SHIFT. PT HARDLY SLEPT THIS SHIFT. WATCHING TV AT 0330. PURE WIK IN PLACE PT IS INCONTINENT AND WEAK STILL PENDING PHYSICAL THERAPY EVAL. REPOSITIONS SELF IN BED. REPOSITIONED WITH ASSISTANCE WELL. NO OTHER ACUTE CHANGES IN ASSESSMENT AT THIS TIME. VS REVIEWED. CALL LIGHT IN REACH.
[2022-12-14 05:35] LABS: Hematocrit 34.4 % (33.0-51.0); Hemoglobin 10.8 g/dL (11.5-16.0); Mean Corpuscular HGB 28.3 pg (26.0-34.0); Mean Corpuscular HGB Conc 31.4 g/dL (31.5-36.5); Mean Corpuscular Volume 90 fL (80-100); Mean Platelet Volume 10.3 fL (9.1-12.4); Platelet Count 291 K/mm3 (150-400); RDW Coefficient Variation 13.6 % (11.7-14.2); RDW Standard Deviation 44.8 fL (35.1-46.3); Red Blood Cell Count 3.81 M/mm3 (3.80-5.20)
[2022-12-14 07:36] VITALS: BP 135/54
--- NOTE | 2022-12-14 13:05 | NUR ---
AM NOTE: PT HAS BEEN ALERT, ORIENTED TO SELF, LOCATION, DATE, SOME SITUATION. PER REPORT, PT W/VISUAL HALLUCINATIONS, NONE HAVE BEEN OBSERVED SO FAR THIS SHIFT BUT PT NOTED TO BE LABELING ITEMS BY DIFFERENT NAMES (EX - CALLING HER IV AN "INCISION"). PT CALLS OUT TO STAFF INSTEAD OF USING CALL LIGHT. BASELINE TREMORS TO BUE. PT DENIES SOB, ON BASELINE O2 AT 3 L/MIN NC, FREQUENTLY PULLING TUBING F/NOSE DESPITE REDIRECTION. PT DENIES CP, SWALLOWS PILLS WHOLE ONE AT A TIME. PUREWICK IN PLACE, DRAINING TO GRAVITY. WILL CONTINUE TO MONITOR AND TREAT ACCORDINGLY UNTIL CHANGE OF SHIFT.
--- NOTE | 2022-12-14 18:48 | NUR ---
SHIFT SUMMARY: NO ACUTE CHANGES TO PT CONDITION SINCE EARLIER NOTE. PT CURRENTLY RESTING IN BED, NO ACUTE DISTRESS, CALL LIGHT IN REACH. ALL ASSESSMENTS HAVE BEEN NEGATIVE FOR IGNITABLE SOURCES.
[2022-12-14 19:43] VITALS: BP 121/54
[2022-12-15 03:47] VITALS: BP 146/66
--- NOTE | 2022-12-15 04:33 | NUR ---
SHIFT SUMMARY PATIENT DENIES PAIN, NAUSEA, AND SHORTNESS OF BREATH. PATIENT IS A&O X3. PATIENT IS ON 3L OF O2, MAINTAINING SATS ABOVE 92%. PER RT, PATIENT NOT USING CPAP. PATIENT HAD SNACK AT BEGINNING OF SHIFT. PATIENT SLEPT ON AND OFF THROUGHOUT SHIFT. PATIENT YELLS OUT WHEN NEEDING HELP, PATIENT INSTRUCTED [employer] LIGHT USE, PATIENT CONTINUES TO YELL OUT. FIRE SAFETY AND IGNITITON RISK COMPLETED. PATIENT IS PLEASANT AND COOPERATIVE WITH CARE.
[2022-12-15 05:36] LABS: Base Excess Venous 10.6 mmol/L; Bicarbonate Venous 32.5 mmol/L (24.0-30.0); PCO2 Venous 59.4 mmHg (38-42); pH Blood Venous 7.39 (7.34-7.37)
[2022-12-15 06:09] LABS: Bun/Creatinine Ratio 26.2 (12.0-20.0); Calcium, Blood 9.4 mg/dL (8.5-10.1); Creatinine, Blood 0.76 mg/dL (0.40-1.00); Potassium, Blood 4.7 mmol/L (3.5-5.5)
[2022-12-15 07:39] VITALS: BP 147/53
[2022-12-15 15:15] VITALS: BP 138/59
--- NOTE | 2022-12-15 18:24 | NUR ---
SHIFT SUMMARY: PT A/O X 4, STANDBY ASSIST WITH GB/WALKER. PT WORKED WITH PT/OT TODAY AND ABLE TO AMBULATE IN ROOM TO BATHROOM AND BACK WITH NO PROBLEMS. PT CONTINENT OF URINE TODAY. HAD A NORMAL BM. ON 2 LPM VIA NC. PT IS EATING AND DRINKING FLUIDS WELL, HAS BEEN PLEASANT AND COOPERATIVE ALL DAY AND ABLE TO MAKE NEEDS KNOWN.
[2022-12-15 19:57] VITALS: BP 138/70
--- NOTE | 2022-12-16 05:12 | NUR ---
SHIFT SUMMARY PATIENT WITH HEADACHE AND INSOMNIA THROUGH THE NIGHT. PATIENT SLEPT EARLY PART OF SHIFT BUT WAS MOSTLY AWAKE AFTER MIDNIGHT. STATES SHE HAS BEEN AWAKE SINCE 2 AM. MEDICATED PER EMAR FOR HEADACHE. BED IN LOW POSITION, CALL LIGHT IN REACH.
[2022-12-16 07:39] VITALS: BP 132/63
--- NOTE | 2022-12-16 14:11 | NUR ---
CALL RECEIVED FROM MARTHA [facility] RN THAT FELIBERTO'S DISCHARGE MEDICATION LIST IS NOT WHAT HER CURRENT HOME MEDICATIONS ARE. REQUESTED MARTHA TO FAX OVER HER LIST OF MEDICATIONS AND WILL RECONCILE LIST. WILL LET DR. ASHLEY KNOW OF CONCERN.
[2022-12-16] MEDS ORDERED: Acetaminophen650 M1 PO (14:13)
[2022-12-16] MEDS ORDERED: BISA10S PR (14:27)
[2022-12-16] MEDS ORDERED: ALMACONE SUSPE355 ML PO (14:27)
[2022-12-16] MEDS ORDERED: EUCERIN INTENS250 M1 TOP (14:28)
[2022-12-16] MEDS ORDERED: Fleet Enema132 ML PR (14:29)
[2022-12-16] MEDS ORDERED: L-LYSINE500 M1 PO (14:30)
[2022-12-16] MEDS ORDERED: LOPE2C PO (14:30)
[2022-12-16] MEDS ORDERED: DULCOLAX400 MG/5 M PO (14:31)
[2022-12-16] MEDS ORDERED: ONDA4ODT MM (14:32)
[2022-12-16] MEDS ORDERED: NYAMYC15 G1 TOP (14:32)
[2022-12-16] MEDS ORDERED: OZEMPIC0.25 MG/02 SC (14:33)
[2022-12-16] MEDS ORDERED: MIRALAX1714 PO (14:34)
[2022-12-16] MEDS ORDERED: ALBU8HFA2 INH (14:35)
[2022-12-16] MEDS ORDERED: ANTIBIOTIC OINT28 GM TOP (14:36)
--- NOTE | 2022-12-16 17:02 | NUR ---
DISCHARGE SUMMARY: 1500. PT MED REC COMPLETED AND DR. ASHLEY NOTIFIED OF MEDICATION CHANGES TO HOME MEDICATIONS. DR. ASHLEY REVIEWED MEDICATIONS AND GAVE VO TO WRITE ORDER TO [facility] TO RESULE ALL PRIOR HOME MEDICATIONS. MARTHA JOHNSON NOTIFIED AT [facility] AND REPORT GIVEN. ASSISTED PT WITH PACKING UP BELONGINGS AND GETTING DRESSED. PT LEFT WITH RIDE SET UP THROUGH [facility] VIA WHEELCHAIR ON 3 LPM VIA NC.
== END 2022-12-16 15:41 | disposition home or self-care (01) | DRG 189 ==
LOC: ER 15:58 → PCU 22:13 → MEDS 22:13 → PCU 23:11 → MEDS 12-13 14:11
PROVIDERS: Emergency Medicine; Family Medicine; Internal Medicine; ADMIT Hospitalist
PROC: 5A09357 Assistance with Respiratory Ventilation, Less than 24 Consecutive Hours, Continuous Positive Airway Pressure (ICD-10-PCS; principal; 2022-12-12)
PROC: 5A0945A Assistance with Respiratory Ventilation, 24-96 Consecutive Hours, High Flow/Velocity Cannula (ICD-10-PCS; 2022-12-13)
DX: J96.21 Acute and chronic respiratory failure with hypoxia (principal); G92.8 Other toxic encephalopathy; I50.32 Chronic diastolic (congestive) heart failure; J44.1 Chronic obstructive pulmonary disease with (acute) exacerbation; Z68.43 Body mass index [BMI] 50.0-59.9, adult; E66.2 Morbid (severe) obesity with alveolar hypoventilation; J96.22 Acute and chronic respiratory failure with hypercapnia; E11.9 Type 2 diabetes mellitus without complications; E78.5 Hyperlipidemia, unspecified; I11.0 Hypertensive heart disease with heart failure; F43.10 Post-traumatic stress disorder, unspecified; G89.29 Other chronic pain; E87.5 Hyperkalemia; F51.04 Psychophysiologic insomnia; M19.90 Unspecified osteoarthritis, unspecified site; I35.0 Nonrheumatic aortic (valve) stenosis; F25.0 Schizoaffective disorder, bipolar type; I25.2 Old myocardial infarction; Z90.49 Acquired absence of other specified parts of digestive tract; Z87.891 Personal history of nicotine dependence; Z99.89 Dependence on other enabling machines and devices; Z99.81 Dependence on supplemental oxygen; Z88.2 Allergy status to sulfonamides; Z91.040 Latex allergy status; Z88.8 Allergy status to other drugs, medicaments and biological substances; Z88.5 Allergy status to narcotic agent; Z79.899 Other long term (current) drug therapy; Z79.82 Long term (current) use of aspirin
CPT/HCPCS: 36415; 51701; 71045; 80048; 80053; 80164; 80178; 81003; 82140; 82803; 82947; 83605; 85025; 85027; 87040; 94660; 94762; 96361-59; 96374-59; 97110; 97116; 97162; 97165; 97530; 97535; 99285-25; A9270; J1650; J1815; J2930; J7030; J7512

== ENCOUNTER 2023-01-18 16:16 | Emergency (ER) | payer MEDICARE, OTHER ==
[~2023-01-18] VITALS: Ht 154.9 cm; Wt 136.1 kg
[~2023-01-18 16:16] MED LIST changes: +ALBU8HFA2 INH; +Acetaminophen650 M1 PO; +BREZTRI AEROS10.7 GM INH; +BUTRANS1 EAC6 TD; +DULO30 PO; +EUCERIN INTENS250 M1 TOP; +MELA3 PO; +MIRALAX1714 PO; +NYAMYC15 G1 TOP; +OZEMPIC0.25 MG/02 SC; +OZEMPIC2 MG/0.75 SC
[2023-01-18 16:46] LABS: BASOPHILS ABSOLUTE AUTO 0.04 K/mm3 (0.00-0.23); BASOPHILS PERCENT AUTO 0 % (0-2); EOSINOPHILS ABSOLUTE AUTO 0.12 K/mm3 (0.00-0.68); EOSINOPHILS PERCENT AUTO 1 % (0-6); Hematocrit 31.3 % (33.0-51.0); Hemoglobin 9.6 g/dL (11.5-16.0); IMMATURE GRAN ABSOLUTE AUTO 0.05 K/mm3 (0.00-0.10); IMMATURE GRAN PERCENT AUTO 1 % (0-1); LYMPHOCYTES ABSOLUTE AUTO 1.16 K/mm3 (0.84-5.20); LYMPHOCYTES PERCENT AUTO 11 % (21-46); MONOCYTES ABSOLUTE AUTO 0.51 K/mm3 (0.16-1.47); MONOCYTES PERCENT AUTO 5 % (4-13); Mean Corpuscular HGB 28.7 pg (26.0-34.0); Mean Corpuscular HGB Conc 30.7 g/dL (31.5-36.5); Mean Corpuscular Volume 93 fL (80-100); Mean Platelet Volume 10.2 fL (9.1-12.4); NEUTROPHILS ABSOLUTE AUTO 8.47 K/mm3 (1.96-9.15); NEUTROPHILS PERCENT AUTO 82 % (41-73); Platelet Count 249 K/mm3 (150-400); RDW Coefficient Variation 14.6 % (11.7-14.2); RDW Standard Deviation 49.6 fL (35.1-46.3); Red Blood Cell Count 3.35 M/mm3 (3.80-5.20); White Blood Cell Count 10.35 K/mm3 (4.00-11.30)
[2023-01-18 17:24] LABS: Albumin/Globulin Ratio 0.8 (0.8-1.8); Bilirubin, Total 0.2 mg/dL (0.1-1.0); Bun/Creatinine Ratio 29.1 (12.0-20.0); Creatinine, Blood 0.86 mg/dL (0.40-1.00); Globulin, Blood 3.6 g/dL (2.2-4.0); Potassium, Blood 5.3 mmol/L (3.5-5.5); Total Protein, Blood 6.6 g/dL (6.4-8.2)
[2023-01-18 18:30] VITALS: BP 133/35
== END 2023-01-18 20:10 | disposition home or self-care (01) ==
LOC: ER 16:16
PROVIDERS: Emergency Medicine
DX: J45.909 Unspecified asthma, uncomplicated (principal); Z88.2 Allergy status to sulfonamides; Z88.1 Allergy status to other antibiotic agents; Z91.040 Latex allergy status; Z88.8 Allergy status to other drugs, medicaments and biological substances; Z79.899 Other long term (current) drug therapy; Z79.82 Long term (current) use of aspirin; J96.12 Chronic respiratory failure with hypercapnia; I50.22 Chronic systolic (congestive) heart failure; E11.9 Type 2 diabetes mellitus without complications; G47.33 Obstructive sleep apnea (adult) (pediatric); I11.0 Hypertensive heart disease with heart failure; F43.10 Post-traumatic stress disorder, unspecified; M19.90 Unspecified osteoarthritis, unspecified site; I25.2 Old myocardial infarction
CPT/HCPCS: 71045; 80053; 83880; 85025; 93005; 93010; 99285-25